=== PATIENT | male | born 1945 | race Caucasian/White ===

== ENCOUNTER → 2017-02-06 | Outpatient (REF) | payer MEDICARE ==
[~2017-02-06] MED LIST: ADV250INH INH; ADVI200C5 PO; ATOR40TA PO; CENTTAB PO; CORE3.12 PO; CORE6.25 PO; COUM1TAB14 PO; ELIQ5TAB PO; FLON0.054; FLON1SPR; FURO40TA2 PO; LASI40TA PO; LISI10TA4 PO; NICO14DI20 TD; SPIR25TA2 PO; TYLE325T5 PO; VITMTA PO; ZEST1TAB4 PO
== END ==
LOC: M LAB REF 12:51
PROVIDERS: ATTEND Nurse Practitioner Family
DX: R21 Rash and other nonspecific skin eruption (principal)

== ENCOUNTER 2018-05-31 13:53 | Inpatient (IN) | payer MEDICARE ==
[2018-05-31 14:34] LABS: BASO % 0.1 % (0.0-1.0); HEMATOCRIT 42.5 % (42.0-52.0); HEMOGLOBIN 14.4 g/dl (13.5-17.5); IMMATURE GRANULOCYTE % 0.7 % (0-3.0); LYMPH # 0.4 10^3/uL (1.5-4.5); LYMPH % 2.3 % (24.0-44.0); MEAN CORPUSCULAR HEMOGLOBIN 34.3 pg (27.0-33.0); MEAN CORPUSCULAR HGB CONC 33.9 g/dl (32.0-36.5); MEAN CORPUSCULAR VOLUME 101.2 fl (80.0-96.0); MONO # 1.2 10^3/uL (0.0-0.8); MONO % 6.3 % (0.0-5.0); NEUTROPHILS # 17.1 10^3/uL (1.8-7.7); NEUTROPHILS % 90.6 % (36.0-66.0); PLATELET COUNT, AUTOMATED 127 10^3/uL (150-450); RED CELL DISTRIBUTION WIDTH 12.9 % (11.5-14.5); WHITE BLOOD COUNT 18.9 10^3/uL (4.0-10.0)
[2018-05-31 14:45] LABS: OSMOLALITY SERUM 305 MOSM/KG (280-301)
[2018-05-31 14:57] LABS: AMMONIA 30 uMOL/L (<32)
[2018-05-31 15:05] LABS: ALKALINE PHOSPHATASE 72 U/L (45-117); ALT/SGPT 21 U/L (12-78); AST/SGOT 69 U/L (7-37); BILIRUBIN,DIRECT 0.5 MG/DL (0.0-0.2); BILIRUBIN,TOTAL 2.3 MG/DL (0.2-1.0); BLOOD UREA NITROGEN 23 MG/DL (7-18); CALCIUM LEVEL 8.5 MG/DL (8.8-10.2); CHLORIDE LEVEL 108 MEQ/L (98-107); GLUCOSE, FASTING 129 MG/DL (70-100); POTASSIUM SERUM 4.8 MEQ/L (3.5-5.1); SODIUM LEVEL 143 MEQ/L (136-145); TOTAL PROTEIN 8.1 GM/DL (6.4-8.2); TROPONIN I 0.03 NG/ML (< 0.10)
[2018-05-31] MEDS: NS 500 ML IV ×2 (15:10→16:51)
[2018-05-31 15:11] LABS: CK-MB VALUE MASS 4.9 NG/ML (<3.6); CPK CREATINE PHOSPHOKINASE 3123 U/L (39-308); MB/CK RELATIVE INDEX 0.15 (< OR =4)
[2018-05-31 15:34] LABS: ANION GAP 11 MEQ/L (8-16); CARBON DIOXIDE LEVEL 24 MEQ/L (21-32)
[2018-05-31 15:35] LABS: ALBUMIN 3.9 GM/DL (3.2-5.2); ALBUMIN/GLOBULIN RATIO 0.93 (1.00-1.93)
[2018-05-31] MEDS: cefTRIAXone SOD 2 GM in D5W MINI-BAG PLUS 50 ML IV (16:27)
[2018-05-31] MEDS: NS 1,000 ML IV (16:47)
[2018-05-31] MEDS: LR 1,000 ML IV (18:00)
[2018-05-31] MEDS ORDERED: ONDANSETRON 4MG/2ML VIAL (J2405) IV (18:15)
[2018-05-31 18:36] LABS: AMORPHOUS SEDIMENT RFX SMALL (NEGATIVE); KETONE, URINE AUTO RFX TRACE mg/dL (NEGATIVE); LEUKOCYTE ESTERASE UR AUTO RFX NEGATIVE (NEGATIVE); MUCUS, URINE RFX SMALL (NEGATIVE); NITRITE, URINE AUTO RFX NEGATIVE (NEGATIVE); RBC, URINE AUTO RFX 5 /HPF (0-3); SPECIFIC GRAVITY UR AUTO RFX 1.028 (1.002-1.035); SQUAM EPITHELIAL CELL UR AURFX 0 /HPF (0-6); WBC, URINE AUTO RFX 6 /HPF (0-3)
[2018-05-31 18:41] LABS: MYOGLOBIN SCREEN, URINE POSITIVE (NEGATIVE)
[2018-05-31 18:49] LABS: MYOGLOBIN 6356 NG/ML (16-116)
[2018-05-31 18:57] LABS: OSMOLALITY URINE 878 MOSM/KG (500-800)
[2018-05-31 19:20] LABS: CHLORIDE,RANDOM URINE 122 MEQ/L; POTASSIUM RANDOM URINE 133.5 MEQ/L; SODIUM,RANDOM URINE 86 MEQ/L
[2018-05-31 19:29] LABS: TOTAL PROTEIN,RANDOM URINE 507.1 MG/DL (0.0-12.0)
[2018-05-31] MEDS: DOCUSATE SODIUM 100 MG CAP PO (21:00)
[2018-05-31 21:01] LABS: TROPONIN I 0.07 NG/ML (< 0.10)
[2018-05-31 21:12] LABS: CK-MB VALUE MASS 11.6 NG/ML (<3.6); CPK CREATINE PHOSPHOKINASE 6138 U/L (39-308); MB/CK RELATIVE INDEX 0.18 (< OR =4)
[2018-05-31] MEDS ORDERED: CEFEPIME HCL 1 GM in D5W MINI-BAG PLUS 50 ML IV (23:00)
[2018-05-31] MEDS: VANCOMYCIN HCL 1,000 MG, VIAL MATE ADAPTER 1 EACH in D5W 250 ML IV (23:30)
[2018-05-31] MEDS: ATORVASTATIN 20 MG TAB PO (23:35)
[2018-05-31] MEDS: APIXABAN 5 MG TAB (ELIQUIS) PO (23:35)
[2018-06-01] MEDS: LR 1,000 ML IV ×3 (00:49→21:13)
[2018-06-01] MEDS: VANCOMYCIN HCL 1,000 MG, VIAL MATE ADAPTER 1 EACH in D5W 250 ML IV ×3 (00:50→21:12)
[2018-06-01] MEDS: CEFEPIME HCL 1 GM in D5W MINI-BAG PLUS 50 ML IV ×2 (04:37→17:36)
[2018-06-01 05:23] LABS: HEMATOCRIT 38.1 % (42.0-52.0); HEMOGLOBIN 12.8 g/dl (13.5-17.5); MEAN CORPUSCULAR HEMOGLOBIN 34.2 pg (27.0-33.0); MEAN CORPUSCULAR HGB CONC 33.6 g/dl (32.0-36.5); MEAN CORPUSCULAR VOLUME 101.9 fl (80.0-96.0); PLATELET COUNT, AUTOMATED 115 10^3/uL (150-450); RED BLOOD COUNT 3.74 10^6/uL (4.30-6.10); RED CELL DISTRIBUTION WIDTH 12.9 % (11.5-14.5)
[2018-06-01 05:44] LABS: ALBUMIN 3.3 GM/DL (3.2-5.2); ALBUMIN/GLOBULIN RATIO 0.83 (1.00-1.93); ALKALINE PHOSPHATASE 56 U/L (45-117); ALT/SGPT 29 U/L (12-78); ANION GAP 9 MEQ/L (8-16); AST/SGOT 159 U/L (7-37); BILIRUBIN,TOTAL 1.8 MG/DL (0.2-1.0); BLOOD UREA NITROGEN 18 MG/DL (7-18); CALCIUM LEVEL 8.1 MG/DL (8.8-10.2); CARBON DIOXIDE LEVEL 25 MEQ/L (21-32); CHLORIDE LEVEL 106 MEQ/L (98-107); CREATININE FOR GFR 1.04 MG/DL (0.70-1.30); GLOMERULAR FILTRATION RATE > 60.0 (>42); GLUCOSE, FASTING 129 MG/DL (70-100); MAGNESIUM LEVEL 2.3 MG/DL (1.8-2.4); POTASSIUM SERUM 4.4 MEQ/L (3.5-5.1); SODIUM LEVEL 140 MEQ/L (136-145); TOTAL PROTEIN 7.3 GM/DL (6.4-8.2); TROPONIN I 0.09 NG/ML (< 0.10)
[2018-06-01 05:54] LABS: CPK CREATINE PHOSPHOKINASE 5630 U/L (39-308); MB/CK RELATIVE INDEX 0.15 (< OR =4)
[2018-06-01] MEDS: LEVOTHYROXINE 50MCG TABLET (0.05MG) PO (06:33)
[2018-06-01] MEDS: BISOPROLOL FUM 2.5 MG PER 1/2TAB PO (08:26)
[2018-06-01] MEDS: APIXABAN 5 MG TAB (ELIQUIS) PO ×2 (08:26→21:18)
[2018-06-01] MEDS: MULTIVITAMINS/MINERALS THERAP 1 TAB PO (08:27)
[2018-06-01] MEDS: DOCUSATE SODIUM 100 MG CAP PO ×2 (08:27→21:19)
[2018-06-01] MEDS: PERCOCET 5MG/325MG TAB PO (18:26)
[2018-06-01] MEDS: ATORVASTATIN 20 MG TAB PO (21:18)
[2018-06-02] MEDS: CEFEPIME HCL 1 GM in D5W MINI-BAG PLUS 50 ML IV ×2 (03:47→17:04)
[2018-06-02] MEDS: LEVOTHYROXINE 50MCG TABLET (0.05MG) PO (05:53)
[2018-06-02 07:10] LABS: HEMATOCRIT 35.8 % (42.0-52.0); MEAN CORPUSCULAR HEMOGLOBIN 34.1 pg (27.0-33.0); MEAN CORPUSCULAR HGB CONC 33.5 g/dl (32.0-36.5); MEAN CORPUSCULAR VOLUME 101.7 fl (80.0-96.0); PLATELET COUNT, AUTOMATED 104 10^3/uL (150-450); RED BLOOD COUNT 3.52 10^6/uL (4.30-6.10); RED CELL DISTRIBUTION WIDTH 12.7 % (11.5-14.5); WHITE BLOOD COUNT 12.1 10^3/uL (4.0-10.0)
[2018-06-02 07:29] LABS: VANCOMYCIN LEVEL TROUGH 12.8 UG/ML (10.0-20.0)
[2018-06-02 07:31] LABS: ALBUMIN 2.8 GM/DL (3.2-5.2); ALBUMIN/GLOBULIN RATIO 0.72 (1.00-1.93); ALKALINE PHOSPHATASE 56 U/L (45-117); ALT/SGPT 51 U/L (12-78); ANION GAP 6 MEQ/L (8-16); AST/SGOT 165 U/L (7-37); BILIRUBIN,TOTAL 1.4 MG/DL (0.2-1.0); BLOOD UREA NITROGEN 13 MG/DL (7-18); CARBON DIOXIDE LEVEL 26 MEQ/L (21-32); CHLORIDE LEVEL 107 MEQ/L (98-107); CREATININE FOR GFR 0.85 MG/DL (0.70-1.30); GLOMERULAR FILTRATION RATE > 60.0 (>42); GLUCOSE, FASTING 113 MG/DL (70-100); MAGNESIUM LEVEL 2.1 MG/DL (1.8-2.4); SODIUM LEVEL 139 MEQ/L (136-145); TOTAL PROTEIN 6.7 GM/DL (6.4-8.2)
[2018-06-02 08:21] LABS: CPK CREATINE PHOSPHOKINASE 3664 U/L (39-308)
[2018-06-02] MEDS ORDERED: MOM 30ML SUSPENSION UDC PO (09:00)
[2018-06-02] MEDS ORDERED: BREO ELLIPTA 200/25 (PATIENT'S OWN MED) INH (09:00)
[2018-06-02] MEDS: MIRALAX *UNIT DOSE* 17GM PACKET PO ×2 (10:02→20:55)
[2018-06-02] MEDS: PERCOCET 5MG/325MG TAB PO (10:03)
[2018-06-02] MEDS: APIXABAN 5 MG TAB (ELIQUIS) PO ×2 (10:03→20:56)
[2018-06-02] MEDS: MULTIVITAMINS/MINERALS THERAP 1 TAB PO (10:03)
[2018-06-02] MEDS: VANCOMYCIN HCL 1,000 MG, VIAL MATE ADAPTER 1 EACH in D5W 250 ML IV ×2 (10:03→19:38)
[2018-06-02] MEDS: BISOPROLOL FUM 2.5 MG PER 1/2TAB PO (10:03)
[2018-06-02] MEDS: DOCUSATE SODIUM 100 MG CAP PO ×2 (10:03→20:56)
[2018-06-02] MEDS: LR 1,000 ML IV ×2 (10:04→22:44)
[2018-06-02] MEDS: MORPHINE 4 MG/ML 1ML VIAL/SYRINGE (J2270) IV (10:43)
[2018-06-02] MEDS: ATORVASTATIN 20 MG TAB PO (20:56)
[2018-06-03 03:16] LABS: HEMATOCRIT 34.6 % (42.0-52.0); HEMOGLOBIN 11.7 g/dl (13.5-17.5); MEAN CORPUSCULAR HEMOGLOBIN 35.1 pg (27.0-33.0); MEAN CORPUSCULAR HGB CONC 33.8 g/dl (32.0-36.5); MEAN CORPUSCULAR VOLUME 103.9 fl (80.0-96.0); PLATELET COUNT, AUTOMATED 111 10^3/uL (150-450); RED BLOOD COUNT 3.33 10^6/uL (4.30-6.10); RED CELL DISTRIBUTION WIDTH 12.6 % (11.5-14.5); WHITE BLOOD COUNT 9.2 10^3/uL (4.0-10.0)
[2018-06-03 03:51] LABS: ALBUMIN 2.7 GM/DL (3.2-5.2); ALBUMIN/GLOBULIN RATIO 0.77 (1.00-1.93); ALKALINE PHOSPHATASE 58 U/L (45-117); ALT/SGPT 98 U/L (12-78); ANION GAP 5 MEQ/L (8-16); AST/SGOT 162 U/L (7-37); BLOOD UREA NITROGEN 13 MG/DL (7-18); CARBON DIOXIDE LEVEL 27 MEQ/L (21-32); CHLORIDE LEVEL 107 MEQ/L (98-107); CPK CREATINE PHOSPHOKINASE 2052 U/L (39-308); CREATININE FOR GFR 0.82 MG/DL (0.70-1.30); GLOMERULAR FILTRATION RATE > 60.0 (>42); GLUCOSE, FASTING 103 MG/DL (70-100); MAGNESIUM LEVEL 2.2 MG/DL (1.8-2.4); POTASSIUM SERUM 4.2 MEQ/L (3.5-5.1); SODIUM LEVEL 139 MEQ/L (136-145); TOTAL PROTEIN 6.2 GM/DL (6.4-8.2)
[2018-06-03] MEDS: CEFEPIME HCL 1 GM in D5W MINI-BAG PLUS 50 ML IV (04:16)
[2018-06-03] MEDS: LEVOTHYROXINE 50MCG TABLET (0.05MG) PO (06:37)
[2018-06-03] MEDS: LR 1,000 ML IV (08:47)
[2018-06-03] MEDS: VANCOMYCIN HCL 1,000 MG, VIAL MATE ADAPTER 1 EACH in D5W 250 ML IV (08:48)
[2018-06-03] MEDS: DOCUSATE SODIUM 100 MG CAP PO ×2 (08:49→20:32)
[2018-06-03] MEDS: MULTIVITAMINS/MINERALS THERAP 1 TAB PO (08:49)
[2018-06-03] MEDS: APIXABAN 5 MG TAB (ELIQUIS) PO ×2 (08:49→20:32)
[2018-06-03] MEDS: BISOPROLOL FUM 2.5 MG PER 1/2TAB PO (08:49)
[2018-06-03] MEDS: MIRALAX *UNIT DOSE* 17GM PACKET PO ×2 (08:49→20:32)
[2018-06-03] MEDS: SYMBICORT 160/4.5MCG INHALER 6GM INH ×2 (13:26→21:12)
[2018-06-03] MEDS: LevoFLOXacin 500 MG TABLET PO (17:27)
[2018-06-03] MEDS: ATORVASTATIN 20 MG TAB PO (20:32)
[2018-06-04] MEDS ORDERED: SLF 3 ML SYR IV (03:45)
[2018-06-04] MEDS: SLF 3 ML SYR IV ×3 (05:19→20:20)
[2018-06-04] MEDS: LEVOTHYROXINE 50MCG TABLET (0.05MG) PO (05:20)
[2018-06-04 06:05] LABS: HEMOGLOBIN 12.3 g/dl (13.5-17.5); MEAN CORPUSCULAR HEMOGLOBIN 34.4 pg (27.0-33.0); MEAN CORPUSCULAR HGB CONC 34.2 g/dl (32.0-36.5); MEAN CORPUSCULAR VOLUME 100.6 fl (80.0-96.0); PLATELET COUNT, AUTOMATED 157 10^3/uL (150-450); RED BLOOD COUNT 3.58 10^6/uL (4.30-6.10); RED CELL DISTRIBUTION WIDTH 12.3 % (11.5-14.5); WHITE BLOOD COUNT 8.7 10^3/uL (4.0-10.0)
[2018-06-04 06:18] LABS: ALBUMIN 2.6 GM/DL (3.2-5.2); ALBUMIN/GLOBULIN RATIO 0.62 (1.00-1.93); ALKALINE PHOSPHATASE 69 U/L (45-117); ALT/SGPT 128 U/L (12-78); ANION GAP 4 MEQ/L (8-16); AST/SGOT 131 U/L (7-37); BILIRUBIN,TOTAL 1.2 MG/DL (0.2-1.0); BLOOD UREA NITROGEN 12 MG/DL (7-18); CALCIUM LEVEL 8.3 MG/DL (8.8-10.2); CARBON DIOXIDE LEVEL 31 MEQ/L (21-32); CHLORIDE LEVEL 103 MEQ/L (98-107); CPK CREATINE PHOSPHOKINASE 915 U/L (39-308); CREATININE FOR GFR 0.95 MG/DL (0.70-1.30); GLOMERULAR FILTRATION RATE > 60.0 (>42); GLUCOSE, FASTING 106 MG/DL (70-100); MAGNESIUM LEVEL 2.1 MG/DL (1.8-2.4); POTASSIUM SERUM 4.4 MEQ/L (3.5-5.1); SODIUM LEVEL 138 MEQ/L (136-145); TOTAL PROTEIN 6.8 GM/DL (6.4-8.2)
[2018-06-04] MEDS: BISOPROLOL FUM 2.5 MG PER 1/2TAB PO (08:36)
[2018-06-04] MEDS: DOCUSATE SODIUM 100 MG CAP PO ×2 (08:36→20:19)
[2018-06-04] MEDS: APIXABAN 5 MG TAB (ELIQUIS) PO ×2 (08:36→20:18)
[2018-06-04] MEDS: MULTIVITAMINS/MINERALS THERAP 1 TAB PO (08:36)
[2018-06-04] MEDS: MIRALAX *UNIT DOSE* 17GM PACKET PO ×2 (09:00→20:19)
[2018-06-04] MEDS: SYMBICORT 160/4.5MCG INHALER 6GM INH (12:25)
[2018-06-04] MEDS: LevoFLOXacin 500 MG TABLET PO (18:19)
[2018-06-04] MEDS: ATORVASTATIN 20 MG TAB PO (20:19)
[2018-06-05] MEDS: SYMBICORT 160/4.5MCG INHALER 6GM INH ×3 (00:30→20:19)
[2018-06-05] MEDS: SLF 3 ML SYR IV ×3 (06:12→21:24)
[2018-06-05] MEDS: LEVOTHYROXINE 50MCG TABLET (0.05MG) PO (06:12)
[2018-06-05 08:02] LABS: HEMATOCRIT 38.1 % (42.0-52.0); MEAN CORPUSCULAR HEMOGLOBIN 34.3 pg (27.0-33.0); MEAN CORPUSCULAR HGB CONC 34.1 g/dl (32.0-36.5); MEAN CORPUSCULAR VOLUME 100.5 fl (80.0-96.0); PLATELET COUNT, AUTOMATED 176 10^3/uL (150-450); RED BLOOD COUNT 3.79 10^6/uL (4.30-6.10); RED CELL DISTRIBUTION WIDTH 12.4 % (11.5-14.5); WHITE BLOOD COUNT 8.6 10^3/uL (4.0-10.0)
[2018-06-05 08:37] LABS: ALKALINE PHOSPHATASE 73 U/L (45-117); ALT/SGPT 125 U/L (12-78); ANION GAP 10 MEQ/L (8-16); AST/SGOT 103 U/L (7-37); BILIRUBIN,TOTAL 1.3 MG/DL (0.2-1.0); BLOOD UREA NITROGEN 13 MG/DL (7-18); C REACTIVE PROTEIN QUANTITATIV 9.76 MG/DL (0.00-0.30); CALCIUM LEVEL 8.5 MG/DL (8.8-10.2); CARBON DIOXIDE LEVEL 24 MEQ/L (21-32); CHLORIDE LEVEL 105 MEQ/L (98-107); CPK CREATINE PHOSPHOKINASE 570 U/L (39-308); GLOMERULAR FILTRATION RATE > 60.0 (>42); GLUCOSE, FASTING 99 MG/DL (70-100); MAGNESIUM LEVEL 2.3 MG/DL (1.8-2.4); POTASSIUM SERUM 4.4 MEQ/L (3.5-5.1); SODIUM LEVEL 139 MEQ/L (136-145); TOTAL PROTEIN 6.4 GM/DL (6.4-8.2)
[2018-06-05 08:52] LABS: ALBUMIN/GLOBULIN RATIO 1.13 (1.00-1.93)
[2018-06-05] MEDS: MIRALAX *UNIT DOSE* 17GM PACKET PO ×2 (09:00→21:24)
[2018-06-05] MEDS: APIXABAN 5 MG TAB (ELIQUIS) PO ×2 (09:05→21:23)
[2018-06-05] MEDS: MULTIVITAMINS/MINERALS THERAP 1 TAB PO (09:05)
[2018-06-05] MEDS: DOCUSATE SODIUM 100 MG CAP PO ×2 (09:05→21:23)
[2018-06-05] MEDS: BISOPROLOL FUM 2.5 MG PER 1/2TAB PO (09:49)
[2018-06-05] MEDS: LevoFLOXacin 500 MG TABLET PO (18:34)
[2018-06-05] MEDS: ATORVASTATIN 20 MG TAB PO (21:24)
[2018-06-06] MEDS: NYSTATIN 100,000 UNITS/GM TOPICAL PWD 15 GM TOP ×3 (01:48→21:00)
[2018-06-06] MEDS: LEVOTHYROXINE 50MCG TABLET (0.05MG) PO (05:30)
[2018-06-06] MEDS: SLF 3 ML SYR IV ×3 (05:31→21:10)
[2018-06-06] MEDS: BISOPROLOL FUM 2.5 MG PER 1/2TAB PO (08:06)
[2018-06-06] MEDS: MULTIVITAMINS/MINERALS THERAP 1 TAB PO (08:06)
[2018-06-06] MEDS: APIXABAN 5 MG TAB (ELIQUIS) PO ×2 (08:06→21:10)
[2018-06-06] MEDS: DOCUSATE SODIUM 100 MG CAP PO ×2 (08:06→21:10)
[2018-06-06] MEDS: MIRALAX *UNIT DOSE* 17GM PACKET PO ×2 (08:07→21:10)
[2018-06-06] MEDS: SYMBICORT 160/4.5MCG INHALER 6GM INH ×2 (09:05→21:00)
[2018-06-06 09:12] LABS: HEMATOCRIT 37.1 % (42.0-52.0); HEMOGLOBIN 12.3 g/dl (13.5-17.5); MEAN CORPUSCULAR HEMOGLOBIN 33.4 pg (27.0-33.0); MEAN CORPUSCULAR HGB CONC 33.2 g/dl (32.0-36.5); MEAN CORPUSCULAR VOLUME 100.8 fl (80.0-96.0); PLATELET COUNT, AUTOMATED 191 10^3/uL (150-450); RED BLOOD COUNT 3.68 10^6/uL (4.30-6.10); RED CELL DISTRIBUTION WIDTH 12.4 % (11.5-14.5); WHITE BLOOD COUNT 9.6 10^3/uL (4.0-10.0)
[2018-06-06 10:21] LABS: ALBUMIN 2.8 GM/DL (3.2-5.2); ALBUMIN/GLOBULIN RATIO 0.82 (1.00-1.93); ALKALINE PHOSPHATASE 76 U/L (45-117); ALT/SGPT 119 U/L (12-78); ANION GAP 6 MEQ/L (8-16); AST/SGOT 87 U/L (7-37); BILIRUBIN,TOTAL 1.4 MG/DL (0.2-1.0); BLOOD UREA NITROGEN 14 MG/DL (7-18); C REACTIVE PROTEIN QUANTITATIV 8.07 MG/DL (0.00-0.30); CARBON DIOXIDE LEVEL 28 MEQ/L (21-32); CHLORIDE LEVEL 104 MEQ/L (98-107); CPK CREATINE PHOSPHOKINASE 390 U/L (39-308); CREATININE FOR GFR 1.01 MG/DL (0.70-1.30); GLOMERULAR FILTRATION RATE > 60.0 (>42); GLUCOSE, FASTING 118 MG/DL (70-100); MAGNESIUM LEVEL 2.3 MG/DL (1.8-2.4); POTASSIUM SERUM 4.3 MEQ/L (3.5-5.1); SODIUM LEVEL 138 MEQ/L (136-145); TOTAL PROTEIN 6.2 GM/DL (6.4-8.2)
[2018-06-06] MEDS: LevoFLOXacin 500 MG TABLET PO (17:18)
[2018-06-06] MEDS: ATORVASTATIN 20 MG TAB PO (21:10)
[2018-06-07] MEDS: LEVOTHYROXINE 50MCG TABLET (0.05MG) PO (06:07)
[2018-06-07] MEDS: SLF 3 ML SYR IV ×3 (06:07→20:13)
[2018-06-07] MEDS: SYMBICORT 160/4.5MCG INHALER 6GM INH ×2 (07:54→19:54)
[2018-06-07 07:56] LABS: HEMATOCRIT 37.9 % (42.0-52.0); HEMOGLOBIN 12.5 g/dl (13.5-17.5); MEAN CORPUSCULAR HEMOGLOBIN 34.2 pg (27.0-33.0); MEAN CORPUSCULAR VOLUME 103.8 fl (80.0-96.0); PLATELET COUNT, AUTOMATED 197 10^3/uL (150-450); RED BLOOD COUNT 3.65 10^6/uL (4.30-6.10); RED CELL DISTRIBUTION WIDTH 12.6 % (11.5-14.5)
[2018-06-07 08:22] LABS: ALBUMIN/GLOBULIN RATIO 0.83 (1.00-1.93); ALKALINE PHOSPHATASE 77 U/L (45-117); ALT/SGPT 121 U/L (12-78); ANION GAP 7 MEQ/L (8-16); AST/SGOT 79 U/L (7-37); BILIRUBIN,TOTAL 1.3 MG/DL (0.2-1.0); BLOOD UREA NITROGEN 13 MG/DL (7-18); C REACTIVE PROTEIN QUANTITATIV 8.13 MG/DL (0.00-0.30); CALCIUM LEVEL 8.4 MG/DL (8.8-10.2); CARBON DIOXIDE LEVEL 28 MEQ/L (21-32); CHLORIDE LEVEL 105 MEQ/L (98-107); CPK CREATINE PHOSPHOKINASE 308 U/L (39-308); GLOMERULAR FILTRATION RATE > 60.0 (>42); GLUCOSE, FASTING 91 MG/DL (70-100); MAGNESIUM LEVEL 2.4 MG/DL (1.8-2.4); POTASSIUM SERUM 4.2 MEQ/L (3.5-5.1); SODIUM LEVEL 140 MEQ/L (136-145); TOTAL PROTEIN 6.6 GM/DL (6.4-8.2)
[2018-06-07] MEDS: NYSTATIN 100,000 UNITS/GM TOPICAL PWD 15 GM TOP ×2 (09:54→20:12)
[2018-06-07] MEDS: APIXABAN 5 MG TAB (ELIQUIS) PO ×2 (09:54→20:10)
[2018-06-07] MEDS: MIRALAX *UNIT DOSE* 17GM PACKET PO ×2 (09:54→20:12)
[2018-06-07] MEDS: MULTIVITAMINS/MINERALS THERAP 1 TAB PO (09:54)
[2018-06-07] MEDS: BISOPROLOL FUM 2.5 MG PER 1/2TAB PO (09:54)
[2018-06-07] MEDS: DOCUSATE SODIUM 100 MG CAP PO ×2 (09:54→20:10)
[2018-06-07] MEDS: PERCOCET 5MG/325MG TAB PO ×2 (13:17→20:11)
[2018-06-07] MEDS: LevoFLOXacin 500 MG TABLET PO (18:33)
[2018-06-07] MEDS: ATORVASTATIN 20 MG TAB PO (20:11)
[2018-06-08] MEDS: LEVOTHYROXINE 50MCG TABLET (0.05MG) PO (05:41)
[2018-06-08] MEDS: SLF 3 ML SYR IV ×3 (05:41→20:16)
[2018-06-08] MEDS: SYMBICORT 160/4.5MCG INHALER 6GM INH ×2 (07:42→19:39)
[2018-06-08 08:03] LABS: C REACTIVE PROTEIN QUANTITATIV 6.03 MG/DL (0.00-0.30); CPK CREATINE PHOSPHOKINASE 192 U/L (39-308)
[2018-06-08] MEDS: NYSTATIN 100,000 UNITS/GM TOPICAL PWD 15 GM TOP ×2 (09:00→20:16)
[2018-06-08] MEDS: MIRALAX *UNIT DOSE* 17GM PACKET PO ×2 (09:00→20:15)
[2018-06-08 09:07] LABS: ALBUMIN 2.7 GM/DL (3.2-5.2); ALBUMIN/GLOBULIN RATIO 0.79 (1.00-1.93); ALKALINE PHOSPHATASE 69 U/L (45-117); ALT/SGPT 120 U/L (12-78); ANION GAP 9 MEQ/L (8-16); AST/SGOT 71 U/L (7-37); BILIRUBIN,TOTAL 0.9 MG/DL (0.2-1.0); BLOOD UREA NITROGEN 13 MG/DL (7-18); CALCIUM LEVEL 8.1 MG/DL (8.8-10.2); CARBON DIOXIDE LEVEL 26 MEQ/L (21-32); CHLORIDE LEVEL 105 MEQ/L (98-107); CREATININE FOR GFR 0.99 MG/DL (0.70-1.30); GLOMERULAR FILTRATION RATE > 60.0 (>42); GLUCOSE, FASTING 97 MG/DL (70-100); MAGNESIUM LEVEL 2.3 MG/DL (1.8-2.4); POTASSIUM SERUM 4.4 MEQ/L (3.5-5.1); SODIUM LEVEL 140 MEQ/L (136-145); TOTAL PROTEIN 6.1 GM/DL (6.4-8.2)
[2018-06-08] MEDS: DOCUSATE SODIUM 100 MG CAP PO ×2 (09:11→20:15)
[2018-06-08] MEDS: BISOPROLOL FUM 2.5 MG PER 1/2TAB PO (09:11)
[2018-06-08] MEDS: MULTIVITAMINS/MINERALS THERAP 1 TAB PO (09:11)
[2018-06-08] MEDS: APIXABAN 5 MG TAB (ELIQUIS) PO ×2 (09:11→20:15)
[2018-06-08 09:47] LABS: BASO % 0.5 % (0.0-1.0); EOS # 0.1 10^3/uL (0.0-0.50); EOS % 1.6 % (0.0-3.0); IMMATURE GRANULOCYTE % 0.8 % (0-3.0); LYMPH # 0.9 10^3/uL (1.5-4.5); LYMPH % 12.4 % (24.0-44.0); MEAN CORPUSCULAR HEMOGLOBIN 34.1 pg (27.0-33.0); MEAN CORPUSCULAR HGB CONC 33.3 g/dl (32.0-36.5); MEAN CORPUSCULAR VOLUME 102.3 fl (80.0-96.0); MONO % 12.6 % (0.0-5.0); NEUTROPHILS # 5.4 10^3/uL (1.8-7.7); NEUTROPHILS % 72.1 % (36.0-66.0); PLATELET COUNT, AUTOMATED 205 10^3/uL (150-450); RED BLOOD COUNT 3.52 10^6/uL (4.30-6.10); RED CELL DISTRIBUTION WIDTH 12.5 % (11.5-14.5); WHITE BLOOD COUNT 7.5 10^3/uL (4.0-10.0)
[2018-06-08] MEDS: LevoFLOXacin 500 MG TABLET PO (17:11)
[2018-06-08] MEDS: PERCOCET 5MG/325MG TAB PO (17:11)
[2018-06-08] MEDS: ATORVASTATIN 20 MG TAB PO (20:15)
[2018-06-09] MEDS: LEVOTHYROXINE 50MCG TABLET (0.05MG) PO (05:32)
[2018-06-09] MEDS: SLF 3 ML SYR IV (05:33)
[2018-06-09 07:10] LABS: BASO % 0.5 % (0.0-1.0); EOS # 0.2 10^3/uL (0.0-0.50); HEMATOCRIT 37.3 % (42.0-52.0); HEMOGLOBIN 12.3 g/dl (13.5-17.5); IMMATURE GRANULOCYTE % 0.9 % (0-3.0); LYMPH # 1.3 10^3/uL (1.5-4.5); LYMPH % 16.8 % (24.0-44.0); MEAN CORPUSCULAR HEMOGLOBIN 34.2 pg (27.0-33.0); MEAN CORPUSCULAR VOLUME 103.6 fl (80.0-96.0); MONO # 0.9 10^3/uL (0.0-0.8); NEUTROPHILS # 5.1 10^3/uL (1.8-7.7); NEUTROPHILS % 67.8 % (36.0-66.0); PLATELET COUNT, AUTOMATED 211 10^3/uL (150-450); RED CELL DISTRIBUTION WIDTH 12.5 % (11.5-14.5); WHITE BLOOD COUNT 7.5 10^3/uL (4.0-10.0)
[2018-06-09] MEDS: SYMBICORT 160/4.5MCG INHALER 6GM INH ×2 (07:13→20:15)
[2018-06-09 07:40] LABS: ALBUMIN 2.8 GM/DL (3.2-5.2); ALBUMIN/GLOBULIN RATIO 0.68 (1.00-1.93); ALKALINE PHOSPHATASE 68 U/L (45-117); ALT/SGPT 103 U/L (12-78); ANION GAP 6 MEQ/L (8-16); AST/SGOT 55 U/L (7-37); BILIRUBIN,TOTAL 0.7 MG/DL (0.2-1.0); BLOOD UREA NITROGEN 11 MG/DL (7-18); C REACTIVE PROTEIN QUANTITATIV 4.19 MG/DL (0.00-0.30); CALCIUM LEVEL 8.3 MG/DL (8.8-10.2); CARBON DIOXIDE LEVEL 27 MEQ/L (21-32); CHLORIDE LEVEL 106 MEQ/L (98-107); CPK CREATINE PHOSPHOKINASE 151 U/L (39-308); CREATININE FOR GFR 0.99 MG/DL (0.70-1.30); GLOMERULAR FILTRATION RATE > 60.0 (>42); GLUCOSE, FASTING 100 MG/DL (70-100); MAGNESIUM LEVEL 2.3 MG/DL (1.8-2.4); POTASSIUM SERUM 4.4 MEQ/L (3.5-5.1); SODIUM LEVEL 139 MEQ/L (136-145); TOTAL PROTEIN 6.9 GM/DL (6.4-8.2)
[2018-06-09] MEDS: NYSTATIN 100,000 UNITS/GM TOPICAL PWD 15 GM TOP ×2 (09:00→21:17)
[2018-06-09] MEDS: DOCUSATE SODIUM 100 MG CAP PO ×2 (09:01→21:00)
[2018-06-09] MEDS: APIXABAN 5 MG TAB (ELIQUIS) PO ×2 (09:01→21:16)
[2018-06-09] MEDS: MULTIVITAMINS/MINERALS THERAP 1 TAB PO (09:01)
[2018-06-09] MEDS: MIRALAX *UNIT DOSE* 17GM PACKET PO ×2 (09:01→21:00)
[2018-06-09] MEDS: BISOPROLOL FUM 2.5 MG PER 1/2TAB PO (09:02)
[2018-06-09] MEDS: LevoFLOXacin 500 MG TABLET PO (18:23)
[2018-06-09] MEDS: ATORVASTATIN 20 MG TAB PO (21:16)
[2018-06-09] MEDS: PERCOCET 5MG/325MG TAB PO (21:17)
[2018-06-10] MEDS: LEVOTHYROXINE 50MCG TABLET (0.05MG) PO (05:45)
[2018-06-10 07:23] LABS: BASO % 0.3 % (0.0-1.0); EOS # 0.1 10^3/uL (0.0-0.50); EOS % 1.8 % (0.0-3.0); HEMATOCRIT 36.8 % (42.0-52.0); HEMOGLOBIN 12.3 g/dl (13.5-17.5); IMMATURE GRANULOCYTE % 0.8 % (0-3.0); LYMPH # 1.2 10^3/uL (1.5-4.5); LYMPH % 18.8 % (24.0-44.0); MEAN CORPUSCULAR HEMOGLOBIN 34.4 pg (27.0-33.0); MEAN CORPUSCULAR HGB CONC 33.4 g/dl (32.0-36.5); MEAN CORPUSCULAR VOLUME 102.8 fl (80.0-96.0); MONO # 0.9 10^3/uL (0.0-0.8); MONO % 13.8 % (0.0-5.0); NEUTROPHILS # 4.2 10^3/uL (1.8-7.7); NEUTROPHILS % 64.5 % (36.0-66.0); PLATELET COUNT, AUTOMATED 225 10^3/uL (150-450); RED BLOOD COUNT 3.58 10^6/uL (4.30-6.10); RED CELL DISTRIBUTION WIDTH 12.6 % (11.5-14.5); WHITE BLOOD COUNT 6.5 10^3/uL (4.0-10.0)
[2018-06-10 07:51] LABS: ALBUMIN/GLOBULIN RATIO 0.88 (1.00-1.93); ALKALINE PHOSPHATASE 74 U/L (45-117); ALT/SGPT 85 U/L (12-78); ANION GAP 8 MEQ/L (8-16); AST/SGOT 41 U/L (7-37); BILIRUBIN,TOTAL 0.7 MG/DL (0.2-1.0); BLOOD UREA NITROGEN 12 MG/DL (7-18); C REACTIVE PROTEIN QUANTITATIV 2.94 MG/DL (0.00-0.30); CALCIUM LEVEL 8.4 MG/DL (8.8-10.2); CARBON DIOXIDE LEVEL 26 MEQ/L (21-32); CHLORIDE LEVEL 106 MEQ/L (98-107); CREATININE FOR GFR 0.91 MG/DL (0.70-1.30); GLOMERULAR FILTRATION RATE > 60.0 (>42); GLUCOSE, FASTING 89 MG/DL (70-100); MAGNESIUM LEVEL 2.4 MG/DL (1.8-2.4); POTASSIUM SERUM 4.3 MEQ/L (3.5-5.1); SODIUM LEVEL 140 MEQ/L (136-145); TOTAL PROTEIN 6.4 GM/DL (6.4-8.2)
[2018-06-10] MEDS: SYMBICORT 160/4.5MCG INHALER 6GM INH ×2 (08:06→19:48)
[2018-06-10] MEDS: DOCUSATE SODIUM 100 MG CAP PO ×2 (09:00→20:07)
[2018-06-10] MEDS: NYSTATIN 100,000 UNITS/GM TOPICAL PWD 15 GM TOP ×2 (09:00→20:08)
[2018-06-10] MEDS: MIRALAX *UNIT DOSE* 17GM PACKET PO ×2 (09:00→20:07)
[2018-06-10] MEDS: MULTIVITAMINS/MINERALS THERAP 1 TAB PO (09:36)
[2018-06-10] MEDS: APIXABAN 5 MG TAB (ELIQUIS) PO ×2 (09:36→20:07)
[2018-06-10] MEDS: BISOPROLOL FUM 2.5 MG PER 1/2TAB PO (09:36)
[2018-06-10] MEDS: PERCOCET 5MG/325MG TAB PO ×2 (16:46→22:59)
[2018-06-10] MEDS: ATORVASTATIN 20 MG TAB PO (20:07)
[2018-06-11] MEDS: PERCOCET 5MG/325MG TAB PO ×2 (05:31→20:47)
[2018-06-11] MEDS: LEVOTHYROXINE 50MCG TABLET (0.05MG) PO (05:31)
[2018-06-11 07:12] LABS: BASO % 0.4 % (0.0-1.0); EOS # 0.1 10^3/uL (0.0-0.50); EOS % 1.2 % (0.0-3.0); HEMATOCRIT 36.5 % (42.0-52.0); HEMOGLOBIN 12.2 g/dl (13.5-17.5); IMMATURE GRANULOCYTE % 0.5 % (0-3.0); LYMPH # 1.4 10^3/uL (1.5-4.5); LYMPH % 19.7 % (24.0-44.0); MEAN CORPUSCULAR HEMOGLOBIN 34.3 pg (27.0-33.0); MEAN CORPUSCULAR HGB CONC 33.4 g/dl (32.0-36.5); MEAN CORPUSCULAR VOLUME 102.5 fl (80.0-96.0); MONO # 0.9 10^3/uL (0.0-0.8); MONO % 12.7 % (0.0-5.0); NEUTROPHILS # 4.8 10^3/uL (1.8-7.7); NEUTROPHILS % 65.5 % (36.0-66.0); PLATELET COUNT, AUTOMATED 228 10^3/uL (150-450); RED BLOOD COUNT 3.56 10^6/uL (4.30-6.10); RED CELL DISTRIBUTION WIDTH 12.7 % (11.5-14.5); WHITE BLOOD COUNT 7.3 10^3/uL (4.0-10.0)
[2018-06-11 07:26] LABS: ALBUMIN 2.9 GM/DL (3.2-5.2); ALBUMIN/GLOBULIN RATIO 0.83 (1.00-1.93); ALKALINE PHOSPHATASE 75 U/L (45-117); ALT/SGPT 77 U/L (12-78); ANION GAP 9 MEQ/L (8-16); AST/SGOT 37 U/L (7-37); BILIRUBIN,TOTAL 0.6 MG/DL (0.2-1.0); BLOOD UREA NITROGEN 11 MG/DL (7-18); C REACTIVE PROTEIN QUANTITATIV 1.91 MG/DL (0.00-0.30); CALCIUM LEVEL 8.3 MG/DL (8.8-10.2); CARBON DIOXIDE LEVEL 27 MEQ/L (21-32); CHLORIDE LEVEL 106 MEQ/L (98-107); CREATININE FOR GFR 0.96 MG/DL (0.70-1.30); GLOMERULAR FILTRATION RATE > 60.0 (>42); GLUCOSE, FASTING 98 MG/DL (70-100); MAGNESIUM LEVEL 2.4 MG/DL (1.8-2.4); POTASSIUM SERUM 4.5 MEQ/L (3.5-5.1); SODIUM LEVEL 142 MEQ/L (136-145); TOTAL PROTEIN 6.4 GM/DL (6.4-8.2)
[2018-06-11] MEDS: SYMBICORT 160/4.5MCG INHALER 6GM INH ×2 (07:43→20:51)
[2018-06-11] MEDS: MIRALAX *UNIT DOSE* 17GM PACKET PO ×2 (10:00→20:46)
[2018-06-11] MEDS: BISOPROLOL FUM 2.5 MG PER 1/2TAB PO (10:00)
[2018-06-11] MEDS: MULTIVITAMINS/MINERALS THERAP 1 TAB PO (10:00)
[2018-06-11] MEDS: NYSTATIN 100,000 UNITS/GM TOPICAL PWD 15 GM TOP ×2 (10:00→20:55)
[2018-06-11] MEDS: APIXABAN 5 MG TAB (ELIQUIS) PO ×2 (10:00→20:46)
[2018-06-11] MEDS: DOCUSATE SODIUM 100 MG CAP PO ×2 (10:04→20:48)
[2018-06-11] MEDS: ATORVASTATIN 20 MG TAB PO (20:46)
[2018-06-12] MEDS: LEVOTHYROXINE 50MCG TABLET (0.05MG) PO (05:41)
[2018-06-12 06:54] LABS: BASO % 0.4 % (0.0-1.0); EOS # 0.1 10^3/uL (0.0-0.50); EOS % 1.3 % (0.0-3.0); HEMATOCRIT 38.6 % (42.0-52.0); HEMOGLOBIN 12.7 g/dl (13.5-17.5); IMMATURE GRANULOCYTE % 0.9 % (0-3.0); LYMPH # 1.5 10^3/uL (1.5-4.5); LYMPH % 21.7 % (24.0-44.0); MEAN CORPUSCULAR HGB CONC 32.9 g/dl (32.0-36.5); MEAN CORPUSCULAR VOLUME 103.5 fl (80.0-96.0); MONO # 0.8 10^3/uL (0.0-0.8); MONO % 11.1 % (0.0-5.0); NEUTROPHILS # 4.4 10^3/uL (1.8-7.7); NEUTROPHILS % 64.6 % (36.0-66.0); PLATELET COUNT, AUTOMATED 238 10^3/uL (150-450); RED BLOOD COUNT 3.73 10^6/uL (4.30-6.10); RED CELL DISTRIBUTION WIDTH 12.8 % (11.5-14.5); WHITE BLOOD COUNT 6.8 10^3/uL (4.0-10.0)
[2018-06-12 07:14] LABS: ALBUMIN 3.1 GM/DL (3.2-5.2); ALBUMIN/GLOBULIN RATIO 0.89 (1.00-1.93); ALKALINE PHOSPHATASE 73 U/L (45-117); ALT/SGPT 68 U/L (12-78); ANION GAP 7 MEQ/L (8-16); AST/SGOT 33 U/L (7-37); BILIRUBIN,TOTAL 0.6 MG/DL (0.2-1.0); BLOOD UREA NITROGEN 13 MG/DL (7-18); C REACTIVE PROTEIN QUANTITATIV 1.67 MG/DL (0.00-0.30); CALCIUM LEVEL 8.2 MG/DL (8.8-10.2); CARBON DIOXIDE LEVEL 28 MEQ/L (21-32); CHLORIDE LEVEL 107 MEQ/L (98-107); CREATININE FOR GFR 0.93 MG/DL (0.70-1.30); GLOMERULAR FILTRATION RATE > 60.0 (>42); GLUCOSE, FASTING 95 MG/DL (70-100); MAGNESIUM LEVEL 2.5 MG/DL (1.8-2.4); POTASSIUM SERUM 4.8 MEQ/L (3.5-5.1); SODIUM LEVEL 142 MEQ/L (136-145); TOTAL PROTEIN 6.6 GM/DL (6.4-8.2)
[2018-06-12] MEDS: SYMBICORT 160/4.5MCG INHALER 6GM INH ×2 (08:17→21:31)
[2018-06-12] MEDS: MIRALAX *UNIT DOSE* 17GM PACKET PO ×2 (09:36→20:48)
[2018-06-12] MEDS: BISOPROLOL FUM 2.5 MG PER 1/2TAB PO (09:36)
[2018-06-12] MEDS: APIXABAN 5 MG TAB (ELIQUIS) PO ×2 (09:36→20:48)
[2018-06-12] MEDS: DOCUSATE SODIUM 100 MG CAP PO ×2 (09:36→20:48)
[2018-06-12] MEDS: MULTIVITAMINS/MINERALS THERAP 1 TAB PO (09:36)
[2018-06-12] MEDS: NYSTATIN 100,000 UNITS/GM TOPICAL PWD 15 GM TOP ×2 (09:37→20:49)
[2018-06-12] MEDS: PERCOCET 5MG/325MG TAB PO (09:37)
[2018-06-12] MEDS: SPIRONOLACTONE 12.5MG PER 1/2 TABLET PO (15:42)
[2018-06-12] MEDS: ATORVASTATIN 20 MG TAB PO (20:48)
[2018-06-13] MEDS: LEVOTHYROXINE 50MCG TABLET (0.05MG) PO (06:17)
[2018-06-13 07:11] LABS: BASO % 0.4 % (0.0-1.0); EOS # 0.1 10^3/uL (0.0-0.50); EOS % 1.2 % (0.0-3.0); HEMATOCRIT 38.6 % (42.0-52.0); HEMOGLOBIN 12.6 g/dl (13.5-17.5); IMMATURE GRANULOCYTE % 0.7 % (0-3.0); LYMPH # 1.5 10^3/uL (1.5-4.5); LYMPH % 20.1 % (24.0-44.0); MEAN CORPUSCULAR HEMOGLOBIN 33.6 pg (27.0-33.0); MEAN CORPUSCULAR HGB CONC 32.6 g/dl (32.0-36.5); MEAN CORPUSCULAR VOLUME 102.9 fl (80.0-96.0); MONO # 0.9 10^3/uL (0.0-0.8); MONO % 11.4 % (0.0-5.0); NEUTROPHILS # 5.1 10^3/uL (1.8-7.7); NEUTROPHILS % 66.2 % (36.0-66.0); PLATELET COUNT, AUTOMATED 252 10^3/uL (150-450); RED BLOOD COUNT 3.75 10^6/uL (4.30-6.10); RED CELL DISTRIBUTION WIDTH 12.8 % (11.5-14.5); WHITE BLOOD COUNT 7.6 10^3/uL (4.0-10.0)
[2018-06-13 07:37] LABS: ALBUMIN/GLOBULIN RATIO 0.77 (1.00-1.93); ALKALINE PHOSPHATASE 72 U/L (45-117); ALT/SGPT 56 U/L (12-78); ANION GAP 8 MEQ/L (8-16); AST/SGOT 27 U/L (7-37); BILIRUBIN,TOTAL 0.5 MG/DL (0.2-1.0); BLOOD UREA NITROGEN 13 MG/DL (7-18); C REACTIVE PROTEIN QUANTITATIV 1.23 MG/DL (0.00-0.30); CALCIUM LEVEL 8.3 MG/DL (8.8-10.2); CARBON DIOXIDE LEVEL 26 MEQ/L (21-32); CHLORIDE LEVEL 107 MEQ/L (98-107); CREATININE FOR GFR 0.91 MG/DL (0.70-1.30); GLOMERULAR FILTRATION RATE > 60.0 (>42); GLUCOSE, FASTING 95 MG/DL (70-100); MAGNESIUM LEVEL 2.3 MG/DL (1.8-2.4); POTASSIUM SERUM 4.1 MEQ/L (3.5-5.1); SODIUM LEVEL 141 MEQ/L (136-145); TOTAL PROTEIN 6.9 GM/DL (6.4-8.2)
[2018-06-13] MEDS: MIRALAX *UNIT DOSE* 17GM PACKET PO ×2 (09:35→20:32)
[2018-06-13] MEDS: APIXABAN 5 MG TAB (ELIQUIS) PO ×2 (09:35→20:16)
[2018-06-13] MEDS: MULTIVITAMINS/MINERALS THERAP 1 TAB PO (09:35)
[2018-06-13] MEDS: SPIRONOLACTONE 12.5MG PER 1/2 TABLET PO (09:35)
[2018-06-13] MEDS: DOCUSATE SODIUM 100 MG CAP PO ×2 (09:35→20:32)
[2018-06-13] MEDS: BISOPROLOL FUM 2.5 MG PER 1/2TAB PO (09:35)
[2018-06-13] MEDS: NYSTATIN 100,000 UNITS/GM TOPICAL PWD 15 GM TOP ×2 (09:36→20:17)
[2018-06-13] MEDS: SYMBICORT 160/4.5MCG INHALER 6GM INH ×2 (14:03→20:39)
[2018-06-13] MEDS: PERCOCET 5MG/325MG TAB PO (20:16)
[2018-06-13] MEDS: ATORVASTATIN 20 MG TAB PO (20:16)
[2018-06-14] MEDS: LEVOTHYROXINE 50MCG TABLET (0.05MG) PO (05:09)
[2018-06-14 06:47] LABS: BASO % 0.5 % (0.0-1.0); EOS # 0.1 10^3/uL (0.0-0.50); EOS % 1.4 % (0.0-3.0); HEMOGLOBIN 12.9 g/dl (13.5-17.5); IMMATURE GRANULOCYTE % 0.8 % (0-3.0); LYMPH # 1.5 10^3/uL (1.5-4.5); LYMPH % 23.7 % (24.0-44.0); MEAN CORPUSCULAR HEMOGLOBIN 33.9 pg (27.0-33.0); MEAN CORPUSCULAR HGB CONC 33.1 g/dl (32.0-36.5); MEAN CORPUSCULAR VOLUME 102.4 fl (80.0-96.0); MONO # 0.9 10^3/uL (0.0-0.8); MONO % 13.6 % (0.0-5.0); NEUTROPHILS # 3.8 10^3/uL (1.8-7.7); PLATELET COUNT, AUTOMATED 251 10^3/uL (150-450); RED BLOOD COUNT 3.81 10^6/uL (4.30-6.10); RED CELL DISTRIBUTION WIDTH 13.1 % (11.5-14.5); WHITE BLOOD COUNT 6.3 10^3/uL (4.0-10.0)
[2018-06-14 07:08] LABS: ALBUMIN 3.1 GM/DL (3.2-5.2); ALBUMIN/GLOBULIN RATIO 0.84 (1.00-1.93); ALKALINE PHOSPHATASE 70 U/L (45-117); ALT/SGPT 48 U/L (12-78); ANION GAP 7 MEQ/L (8-16); AST/SGOT 21 U/L (7-37); BILIRUBIN,TOTAL 0.5 MG/DL (0.2-1.0); BLOOD UREA NITROGEN 12 MG/DL (7-18); CALCIUM LEVEL 8.3 MG/DL (8.8-10.2); CARBON DIOXIDE LEVEL 28 MEQ/L (21-32); CHLORIDE LEVEL 107 MEQ/L (98-107); CREATININE FOR GFR 0.98 MG/DL (0.70-1.30); GLOMERULAR FILTRATION RATE > 60.0 (>42); GLUCOSE, FASTING 106 MG/DL (70-100); MAGNESIUM LEVEL 2.3 MG/DL (1.8-2.4); POTASSIUM SERUM 4.4 MEQ/L (3.5-5.1); SODIUM LEVEL 142 MEQ/L (136-145); TOTAL PROTEIN 6.8 GM/DL (6.4-8.2)
[2018-06-14] MEDS: DOCUSATE SODIUM 100 MG CAP PO (07:53)
[2018-06-14] MEDS: MIRALAX *UNIT DOSE* 17GM PACKET PO (07:54)
[2018-06-14] MEDS: NYSTATIN 100,000 UNITS/GM TOPICAL PWD 15 GM TOP (09:00)
[2018-06-14] MEDS: SPIRONOLACTONE 12.5MG PER 1/2 TABLET PO (09:20)
[2018-06-14] MEDS: MULTIVITAMINS/MINERALS THERAP 1 TAB PO (09:21)
[2018-06-14] MEDS: BISOPROLOL FUM 2.5 MG PER 1/2TAB PO (09:21)
[2018-06-14] MEDS: APIXABAN 5 MG TAB (ELIQUIS) PO (09:21)
[2018-06-14] MEDS: PERCOCET 5MG/325MG TAB PO (10:46)
== END 2018-06-14 12:00 | DRG 682 ==
LOC: M PCU 06-02 23:00 → M MS4PR 06-04 20:31 → M MS5PR 06-13 22:35 → M MS4PR 06-04 20:40 → M ED 13:53 → M ED INP 19:45 → M PCU 22:21
DX: N17.9 Acute kidney failure, unspecified (principal); J18.9 Pneumonia, unspecified organism; M62.82 Rhabdomyolysis; I50.32 Chronic diastolic (congestive) heart failure; I11.0 Hypertensive heart disease with heart failure; E78.5 Hyperlipidemia, unspecified; I25.10 Atherosclerotic heart disease of native coronary artery without angina pectoris; I25.2 Old myocardial infarction; I48.91 Unspecified atrial fibrillation; J44.9 Chronic obstructive pulmonary disease, unspecified; E03.9 Hypothyroidism, unspecified; Z79.899 Other long term (current) drug therapy; I35.0 Nonrheumatic aortic (valve) stenosis

== ENCOUNTER → 2018-06-15 | Outpatient (REF) ==
[2018-06-15 07:56] LABS: C REACTIVE PROTEIN QUANTITATIV 0.69 MG/DL (0.00-0.30)
== END ==
LOC: SKLAB7 07:00
DX: R10.32 Left lower quadrant pain (principal)

== ENCOUNTER → 2018-07-17 | Outpatient (REF) | payer MEDICARE | LOC: M LAB REF 15:16 | DX: R19.7 Diarrhea, unspecified (principal) | CPT/HCPCS: 87493 ==

== ENCOUNTER → 2019-02-05 | Outpatient (REF) | payer MEDICARE ==
[~2019-02-05] MED LIST changes: -ATOR40TA PO; +ATOR40TA75 PO; +BISO5TAB5 PO; +BREO1INH3 INH; -LASI40TA PO; +LASI40TA9 PO; +MELA5TAB17 PO; +SPIR-10 PO; -SPIR25TA2 PO; +SYNT50TA PO; +TYLE500T78 PO
== END ==
LOC: M LAB REF 12:09
PROVIDERS: ATTEND Nurse Practitioner Adult Health
DX: R71.8 Other abnormality of red blood cells (principal)

== ENCOUNTER → 2019-10-22 | Outpatient (REF) | payer MEDICARE ==
[~2019-10-22] MED LIST changes: +BISO5TAB14 PO; -BISO5TAB5 PO; -MELA5TAB17 PO; +MELA5TAB31 PO
[2019-10-22 18:26] LABS: APPEARANCE, URINE HAZY (CLEAR); BACTERIA, URINE AUTO NEGATIVE (NEGATIVE); BILIRUBIN, URINE AUTO NEGATIVE (NEGATIVE); BLOOD, URINE BLOOD NEGATIVE (NEGATIVE); COLOR, URINE YELLOW (YELLOW); GLUCOSE, URINE (UA) AUTO NEGATIVE (NEGATIVE); KETONE, URINE AUTO NEGATIVE (NEGATIVE); LEUKOCYTE ESTERASE, URINE AUTO 1+ (NEGATIVE); NITRITE, URINE AUTO NEGATIVE (NEGATIVE); PROTEIN, URINE AUTO NEGATIVE (NEGATIVE); RBC, URINE AUTO 2 /HPF (0-3); SPECIFIC GRAVITY URINE AUTO 1.016 (1.002-1.035); SQUAMOUS EPITHELIAL CELL UR AU 0 /HPF (0-6); UROBILINOGEN, URINE AUTO 0.2 mg/dL (0.0-2.0); WBC, URINE AUTO 20 /HPF (0-3)
== END ==
LOC: M LAB REF 17:37
PROVIDERS: ATTEND Nurse Practitioner Adult Health
DX: R31.9 Hematuria, unspecified (principal); N39.0 Urinary tract infection, site not specified

== ENCOUNTER → 2021-03-10 | Outpatient (REF) | payer MEDICARE ==
[~2021-03-10] MED LIST changes: -COUM1TAB14 PO; +COUM4TAB8 PO; +LISI10TA22 PO; -LISI10TA4 PO; -MELA5TAB31 PO; +MELA5TAB36 PO
== END ==
LOC: M LAB REF 11:35
PROVIDERS: ATTEND Nurse Practitioner Adult Health
DX: R71.8 Other abnormality of red blood cells (principal)

== ENCOUNTER 2021-12-15 15:10 | Inpatient (IN) | payer MEDICARE ==
[~2021-12-15] VITALS: Ht 193 cm; Wt 104.6 kg
[2021-12-15] MEDS ORDERED: ACETAMINOPHEN 325 MG TAB PO ONE (15:30)
[2021-12-15 16:16] LABS: ABG BASE EXCESS 0.1 (-2.0-2.0); ABG HCO3 23.6 MEQ/L (22.0-26.0); ABG PARTIAL PRESSURE CO2 34.7 mmHg (35.0-45.0); ABG PARTIAL PRESSURE O2 70.9 mmHg (75.0-100.0); ABG STANDARD HCO3 24.6 MEQ/L (22.0-26.0); ABG TOTAL CO2 24.7 MEQ/L (23.0-31.0); ABG pH (ARTERIAL) 7.451 UNITS (7.350-7.450)
[2021-12-15 16:21] LABS: HEMOGLOBIN 11.9 g/dl (13.5-17.5); MEAN CORPUSCULAR HEMOGLOBIN 33.8 pg (27.0-33.0); MEAN CORPUSCULAR HGB CONC 33.1 g/dl (32.0-36.5); MEAN CORPUSCULAR VOLUME 102.3 fl (80.0-96.0); RED BLOOD COUNT 3.52 10^6/uL (4.30-6.10); WHITE BLOOD COUNT 13.8 10^3/uL (4.0-10.0)
[2021-12-15] MEDS ORDERED: NS 1,000 ML IV ONE (16:45)
[2021-12-15] MEDS ORDERED: AZITHROMYCIN INJ 500 MG, VIAL MATE ADAPTER 1 EACH in NS 250 ML IV ONE (16:45)
[2021-12-15] MEDS ORDERED: cefTRIAXone SOD 2 GM in D5W MINI-BAG PLUS 50 ML IV ONE (16:45)
[2021-12-15 16:58] LABS: PLATELET COUNT, AUTOMATED 93 10^3/uL (150-450)
[2021-12-15 17:01] LABS: EOSINOPHILS 1 % (0-3); MONOCYTES 6 % (0-5); NEUTROPHILS 93 % (28-66); PLATELET ESTIMATE DECREASED (NORMAL)
[2021-12-15 17:08] LABS: ALBUMIN 3.4 GM/DL (3.2-5.2); ALT/SGPT 15 U/L (12-78); BILIRUBIN,DIRECT 0.3 MG/DL (0.0-0.2); BILIRUBIN,TOTAL 1.7 MG/DL (0.2-1.0); BLOOD UREA NITROGEN 10 MG/DL (7-18); CALCIUM LEVEL 7.9 MG/DL (8.8-10.2); CARBON DIOXIDE LEVEL 25 MEQ/L (21-32); CHLORIDE LEVEL 102 MEQ/L (98-107); CREATININE FOR GFR 1.07 MG/DL (0.70-1.30); GLOMERULAR FILTRATION RATE > 60.0 (>42); GLUCOSE, FASTING 133 MG/DL (70-100); NT-PRO BNP 4693 PG/ML (<450); POTASSIUM SERUM 4.2 MEQ/L (3.5-5.1); SODIUM LEVEL 134 MEQ/L (136-145); THYROXINE (T4) 6.4 UG/DL (4.5-12.0); TOTAL PROTEIN 6.9 GM/DL (6.4-8.2)
[2021-12-15] MEDS ORDERED: NYST1POW9 TOP (19:13)
[2021-12-15] MEDS ORDERED: METO1TAB7 PO (19:13)
[2021-12-15] MEDS ORDERED: KETO2SHA8 TOP (19:13)
[2021-12-15] MEDS ORDERED: MED REC COMMENT (19:15)
[2021-12-15] MEDS ORDERED: HOME MED LIST COMPLETE! XX SCH (19:15)
[2021-12-15] MEDS: IPRATROPIUM 0.5MG/ALBUTEROL 2.5MG INH SOL UD 3ML (DUONEB) NEB SCH (20:00)
[2021-12-15] MEDS ORDERED: ALBUTEROL 90 MCG/ACT 8GM HFA INHALER INH PRN (22:15)
[2021-12-15] MEDS ORDERED: NS 1,000 ML IV SCH (22:50)
[2021-12-16] VITALS (22 sets, daily range): BP systolic 109–148; BP diastolic 61–77; O2SAT 88–97
[2021-12-16] MEDS ORDERED: NS 250 ML IV ONE (03:50)
[2021-12-16] MEDS: LEVOTHYROXINE 50MCG TABLET (0.05MG) PO SCH (05:50)
[2021-12-16 07:27] LABS: HEMATOCRIT 35.6 % (42.0-52.0); HEMOGLOBIN 11.6 g/dl (13.5-17.5); MEAN CORPUSCULAR HEMOGLOBIN 33.6 pg (27.0-33.0); MEAN CORPUSCULAR HGB CONC 32.6 g/dl (32.0-36.5); MEAN CORPUSCULAR VOLUME 103.2 fl (80.0-96.0); RED BLOOD COUNT 3.45 10^6/uL (4.30-6.10); WHITE BLOOD COUNT 9.9 10^3/uL (4.0-10.0)
[2021-12-16] MEDS: IPRATROPIUM 0.5MG/ALBUTEROL 2.5MG INH SOL UD 3ML (DUONEB) NEB SCH ×4 (07:28→20:53)
[2021-12-16 07:31] LABS: PLATELET COUNT, AUTOMATED 85 10^3/uL (150-450)
[2021-12-16 07:37] LABS: BLOOD UREA NITROGEN 11 MG/DL (7-18); CALCIUM LEVEL 8.2 MG/DL (8.8-10.2); CARBON DIOXIDE LEVEL 29 MEQ/L (21-32); CHLORIDE LEVEL 107 MEQ/L (98-107); CREATININE FOR GFR 0.93 MG/DL (0.70-1.30); GLOMERULAR FILTRATION RATE > 60.0 (>42); GLUCOSE, FASTING 134 MG/DL (70-100); MAGNESIUM LEVEL 2.4 MG/DL (1.8-2.4); POTASSIUM SERUM 4.3 MEQ/L (3.5-5.1); SODIUM LEVEL 138 MEQ/L (136-145)
[2021-12-16] MEDS: AZITHROMYCIN 250MG TABLET PO SCH (08:50)
[2021-12-16] MEDS: APIXABAN 5 MG TAB (ELIQUIS) PO SCH ×2 (08:51→21:18)
[2021-12-16] MEDS: NS 1,000 ML IV SCH ×2 (12:36→18:54)
[2021-12-16] MEDS: METOPROLOL SUCC (TopROL XL) 50MG **XL** TAB PO SCH (15:05)
[2021-12-16] MEDS: cefTRIAXone SOD 1 GM in D5W MINI-BAG PLUS 50 ML IV SCH (17:32)
[2021-12-16] MEDS ORDERED: NS 500 ML IV ONE (18:10)
[2021-12-16] MEDS: ATORVASTATIN 20 MG TAB PO SCH (21:18)
[2021-12-17] VITALS (21 sets, daily range): BP systolic 114–143; BP diastolic 58–79; O2SAT 87–100
[2021-12-17] MEDS: LEVOTHYROXINE 50MCG TABLET (0.05MG) PO SCH (05:57)
[2021-12-17] MEDS: NS 1,000 ML IV SCH (06:00)
[2021-12-17 06:24] LABS: HEMATOCRIT 32.9 % (42.0-52.0); HEMOGLOBIN 10.9 g/dl (13.5-17.5); MEAN CORPUSCULAR HGB CONC 33.1 g/dl (32.0-36.5); MEAN CORPUSCULAR VOLUME 102.5 fl (80.0-96.0); RED BLOOD COUNT 3.21 10^6/uL (4.30-6.10); WHITE BLOOD COUNT 8.8 10^3/uL (4.0-10.0)
[2021-12-17 06:26] LABS: PLATELET COUNT, AUTOMATED 97 10^3/uL (150-450)
[2021-12-17 06:45] LABS: BLOOD UREA NITROGEN 10 MG/DL (7-18); CALCIUM LEVEL 8.1 MG/DL (8.8-10.2); CARBON DIOXIDE LEVEL 28 MEQ/L (21-32); CHLORIDE LEVEL 111 MEQ/L (98-107); CREATININE FOR GFR 0.91 MG/DL (0.70-1.30); GLOMERULAR FILTRATION RATE > 60.0 (>42); GLUCOSE, FASTING 112 MG/DL (70-100); POTASSIUM SERUM 3.9 MEQ/L (3.5-5.1); SODIUM LEVEL 143 MEQ/L (136-145)
[2021-12-17] MEDS: IPRATROPIUM 0.5MG/ALBUTEROL 2.5MG INH SOL UD 3ML (DUONEB) NEB SCH ×4 (07:11→19:53)
[2021-12-17] MEDS: guaiFENesin ER 600 MG TAB PO SCH ×2 (09:11→20:16)
[2021-12-17] MEDS: APIXABAN 5 MG TAB (ELIQUIS) PO SCH ×2 (09:13→20:16)
[2021-12-17] MEDS: METOPROLOL SUCC (TopROL XL) 50MG **XL** TAB PO SCH (09:13)
[2021-12-17] MEDS: AZITHROMYCIN 250MG TABLET PO SCH (09:14)
[2021-12-17] MEDS: cefTRIAXone SOD 1 GM in D5W MINI-BAG PLUS 50 ML IV SCH (16:10)
[2021-12-17] MEDS: ATORVASTATIN 20 MG TAB PO SCH (20:16)
[2021-12-18] VITALS (10 sets, daily range): BP systolic 119–146; BP diastolic 69–88; O2SAT 90–92
[2021-12-18] MEDS: LEVOTHYROXINE 50MCG TABLET (0.05MG) PO SCH (05:08)
[2021-12-18 06:21] LABS: HEMATOCRIT 36.3 % (42.0-52.0); HEMOGLOBIN 11.6 g/dl (13.5-17.5); MEAN CORPUSCULAR HEMOGLOBIN 33.2 pg (27.0-33.0); PLATELET COUNT, AUTOMATED 120 10^3/uL (150-450); RED BLOOD COUNT 3.49 10^6/uL (4.30-6.10); WHITE BLOOD COUNT 9.6 10^3/uL (4.0-10.0)
[2021-12-18 06:47] LABS: BLOOD UREA NITROGEN 13 MG/DL (7-18); CALCIUM LEVEL 8.2 MG/DL (8.8-10.2); CARBON DIOXIDE LEVEL 27 MEQ/L (21-32); CHLORIDE LEVEL 107 MEQ/L (98-107); CREATININE FOR GFR 1.01 MG/DL (0.70-1.30); GLOMERULAR FILTRATION RATE > 60.0 (>42); GLUCOSE, FASTING 90 MG/DL (70-100); POTASSIUM SERUM 4.1 MEQ/L (3.5-5.1); SODIUM LEVEL 139 MEQ/L (136-145)
[2021-12-18] MEDS: IPRATROPIUM 0.5MG/ALBUTEROL 2.5MG INH SOL UD 3ML (DUONEB) NEB SCH ×4 (07:06→20:26)
[2021-12-18] MEDS: APIXABAN 5 MG TAB (ELIQUIS) PO SCH ×2 (08:19→20:06)
[2021-12-18] MEDS: AZITHROMYCIN 250MG TABLET PO SCH (08:19)
[2021-12-18] MEDS: guaiFENesin ER 600 MG TAB PO SCH ×2 (08:19→20:06)
[2021-12-18] MEDS: METOPROLOL SUCC (TopROL XL) 50MG **XL** TAB PO SCH (08:24)
[2021-12-18] MEDS: cefTRIAXone SOD 1 GM in D5W MINI-BAG PLUS 50 ML IV SCH (17:41)
[2021-12-18] MEDS: ATORVASTATIN 20 MG TAB PO SCH (20:06)
[2021-12-19 03:12] VITALS: BP 130/65
[2021-12-19] MEDS: LEVOTHYROXINE 50MCG TABLET (0.05MG) PO SCH (05:00)
[2021-12-19 05:32] LABS: HEMATOCRIT 34.4 % (42.0-52.0); HEMOGLOBIN 11.2 g/dl (13.5-17.5); MEAN CORPUSCULAR HEMOGLOBIN 33.4 pg (27.0-33.0); MEAN CORPUSCULAR HGB CONC 32.6 g/dl (32.0-36.5); MEAN CORPUSCULAR VOLUME 102.7 fl (80.0-96.0); PLATELET COUNT, AUTOMATED 125 10^3/uL (150-450); RED BLOOD COUNT 3.35 10^6/uL (4.30-6.10); WHITE BLOOD COUNT 7.3 10^3/uL (4.0-10.0)
[2021-12-19 05:49] LABS: BLOOD UREA NITROGEN 12 MG/DL (7-18); CALCIUM LEVEL 8.2 MG/DL (8.8-10.2); CARBON DIOXIDE LEVEL 30 MEQ/L (21-32); CHLORIDE LEVEL 106 MEQ/L (98-107); CREATININE FOR GFR 0.92 MG/DL (0.70-1.30); GLOMERULAR FILTRATION RATE > 60.0 (>42); GLUCOSE, FASTING 91 MG/DL (70-100); POTASSIUM SERUM 3.9 MEQ/L (3.5-5.1); SODIUM LEVEL 139 MEQ/L (136-145)
[2021-12-19] MEDS: IPRATROPIUM 0.5MG/ALBUTEROL 2.5MG INH SOL UD 3ML (DUONEB) NEB SCH ×3 (07:20→16:00)
[2021-12-19] MEDS: guaiFENesin ER 600 MG TAB PO SCH ×2 (08:02→20:28)
[2021-12-19] MEDS: APIXABAN 5 MG TAB (ELIQUIS) PO SCH ×2 (08:02→20:28)
[2021-12-19] MEDS: AZITHROMYCIN 250MG TABLET PO SCH (08:02)
[2021-12-19] MEDS: METOPROLOL SUCC (TopROL XL) 50MG **XL** TAB PO SCH (08:03)
[2021-12-19 08:04] VITALS: BP 137/82
[2021-12-19] MEDS: predniSONE 20 MG TAB PO SCH (09:31)
[2021-12-19] MEDS: ADVAIR HFA 230/21MCG INHALER INH SCH ×2 (12:41→19:06)
[2021-12-19 16:20] VITALS: BP 136/84
[2021-12-19] MEDS: cefTRIAXone SOD 1 GM in D5W MINI-BAG PLUS 50 ML IV SCH (17:39)
[2021-12-19 19:15] VITALS: BP 136/77
[2021-12-19] MEDS: ATORVASTATIN 20 MG TAB PO SCH (20:28)
[2021-12-20 03:30] VITALS: BP 145/74
[2021-12-20] MEDS: LEVOTHYROXINE 50MCG TABLET (0.05MG) PO SCH (05:09)
[2021-12-20 05:36] LABS: HEMATOCRIT 35.1 % (42.0-52.0); HEMOGLOBIN 11.7 g/dl (13.5-17.5); MEAN CORPUSCULAR HEMOGLOBIN 33.9 pg (27.0-33.0); MEAN CORPUSCULAR HGB CONC 33.3 g/dl (32.0-36.5); MEAN CORPUSCULAR VOLUME 101.7 fl (80.0-96.0); PLATELET COUNT, AUTOMATED 137 10^3/uL (150-450); RED BLOOD COUNT 3.45 10^6/uL (4.30-6.10)
[2021-12-20 05:57] LABS: BLOOD UREA NITROGEN 13 MG/DL (7-18); CALCIUM LEVEL 8.6 MG/DL (8.8-10.2); CARBON DIOXIDE LEVEL 30 MEQ/L (21-32); CHLORIDE LEVEL 107 MEQ/L (98-107); CREATININE FOR GFR 0.88 MG/DL (0.70-1.30); GLOMERULAR FILTRATION RATE > 60.0 (>42); GLUCOSE, FASTING 131 MG/DL (70-100); POTASSIUM SERUM 4.3 MEQ/L (3.5-5.1); SODIUM LEVEL 140 MEQ/L (136-145)
[2021-12-20] MEDS: ADVAIR HFA 230/21MCG INHALER INH SCH ×2 (07:42→18:25)
[2021-12-20 08:11] VITALS: BP 145/72
[2021-12-20] MEDS: APIXABAN 5 MG TAB (ELIQUIS) PO SCH ×2 (09:00→20:34)
[2021-12-20] MEDS: predniSONE 20 MG TAB PO SCH (09:00)
[2021-12-20] MEDS: guaiFENesin ER 600 MG TAB PO SCH ×2 (09:00→20:35)
[2021-12-20] MEDS: METOPROLOL SUCC (TopROL XL) 50MG **XL** TAB PO SCH (09:02)
[2021-12-20 12:00] VITALS: BP 148/80
[2021-12-20] MEDS: cefTRIAXone SOD 1 GM in D5W MINI-BAG PLUS 50 ML IV SCH (18:13)
[2021-12-20 20:25] VITALS: BP 144/75
[2021-12-20] MEDS: ATORVASTATIN 20 MG TAB PO SCH (20:34)
[2021-12-21] MEDS: ADVAIR HFA 230/21MCG INHALER INH SCH ×2 (05:09→20:39)
[2021-12-21 05:13] LABS: HEMOGLOBIN 12.2 g/dl (13.5-17.5); MEAN CORPUSCULAR HEMOGLOBIN 34.3 pg (27.0-33.0); MEAN CORPUSCULAR VOLUME 103.9 fl (80.0-96.0); PLATELET COUNT, AUTOMATED 156 10^3/uL (150-450); RED BLOOD COUNT 3.56 10^6/uL (4.30-6.10); WHITE BLOOD COUNT 7.6 10^3/uL (4.0-10.0)
[2021-12-21] MEDS: LEVOTHYROXINE 50MCG TABLET (0.05MG) PO SCH (05:17)
[2021-12-21 05:19] VITALS: BP 154/82
[2021-12-21 05:32] LABS: BLOOD UREA NITROGEN 15 MG/DL (7-18); CALCIUM LEVEL 8.5 MG/DL (8.8-10.2); CARBON DIOXIDE LEVEL 32 MEQ/L (21-32); CHLORIDE LEVEL 104 MEQ/L (98-107); GLOMERULAR FILTRATION RATE > 60.0 (>42); GLUCOSE, FASTING 119 MG/DL (70-100); POTASSIUM SERUM 3.9 MEQ/L (3.5-5.1); SODIUM LEVEL 143 MEQ/L (136-145)
[2021-12-21] MEDS: predniSONE 20 MG TAB PO SCH (09:46)
[2021-12-21] MEDS: guaiFENesin ER 600 MG TAB PO SCH ×2 (09:47→21:20)
[2021-12-21] MEDS: METOPROLOL SUCC (TopROL XL) 50MG **XL** TAB PO SCH (09:47)
[2021-12-21] MEDS: APIXABAN 5 MG TAB (ELIQUIS) PO SCH ×2 (09:47→21:20)
[2021-12-21 14:00] VITALS: BP 149/82
[2021-12-21] MEDS: cefTRIAXone SOD 1 GM in D5W MINI-BAG PLUS 50 ML IV SCH (17:56)
[2021-12-21] MEDS: ATORVASTATIN 20 MG TAB PO SCH (21:20)
[2021-12-22 01:49] VITALS: BP 144/79
[2021-12-22] MEDS: LEVOTHYROXINE 50MCG TABLET (0.05MG) PO SCH (05:23)
[2021-12-22 06:29] VITALS: BP 147/82
[2021-12-22] MEDS: ADVAIR HFA 230/21MCG INHALER INH SCH ×2 (07:40→19:44)
[2021-12-22] MEDS: predniSONE 20 MG TAB PO SCH (08:50)
[2021-12-22] MEDS: APIXABAN 5 MG TAB (ELIQUIS) PO SCH ×2 (08:51→20:59)
[2021-12-22] MEDS: METOPROLOL SUCC (TopROL XL) 50MG **XL** TAB PO SCH (08:51)
[2021-12-22] MEDS: guaiFENesin ER 600 MG TAB PO SCH ×2 (08:52→20:59)
[2021-12-22] MEDS ORDERED: PRED10TA2 PO (12:01)
[2021-12-22 14:00] VITALS: BP 141/76
[2021-12-22] MEDS: ATORVASTATIN 20 MG TAB PO SCH (20:59)
[2021-12-23] MEDS: LEVOTHYROXINE 50MCG TABLET (0.05MG) PO SCH (05:53)
[2021-12-23 06:15] VITALS: BP 142/86
[2021-12-23] MEDS: ADVAIR HFA 230/21MCG INHALER INH SCH (07:12)
[2021-12-23 09:39] VITALS: BP 104/58
[2021-12-23] MEDS: guaiFENesin ER 600 MG TAB PO SCH (09:39)
[2021-12-23] MEDS: METOPROLOL SUCC (TopROL XL) 50MG **XL** TAB PO SCH (09:39)
[2021-12-23] MEDS: predniSONE 20 MG TAB PO SCH (09:40)
[2021-12-23] MEDS: APIXABAN 5 MG TAB (ELIQUIS) PO SCH (09:40)
== END 2021-12-23 12:00 | disposition home health service (06) | DRG 871 ==
LOC: M ED 15:10 → EDBD 15:10 → M ED INP 22:13 → M PCU 12-16 00:30 → M MS5PR 12-20 11:57
PROVIDERS: ADMIT Internal Medicine; ATTEND Family Medicine
DX: A41.9 Sepsis, unspecified organism (principal); J18.9 Pneumonia, unspecified organism; G93.41 Metabolic encephalopathy; J44.0 Chronic obstructive pulmonary disease with (acute) lower respiratory infection; J44.1 Chronic obstructive pulmonary disease with (acute) exacerbation; Z66 Do not resuscitate; I48.91 Unspecified atrial fibrillation; D69.6 Thrombocytopenia, unspecified; D64.9 Anemia, unspecified; I10 Essential (primary) hypertension; E78.5 Hyperlipidemia, unspecified; E03.9 Hypothyroidism, unspecified; Z79.01 Long term (current) use of anticoagulants; Z79.899 Other long term (current) drug therapy; Z98.1 Arthrodesis status; R09.02 Hypoxemia

== ENCOUNTER → 2021-12-30 | Outpatient (REF) | payer MEDICARE ==
[~2021-12-30] MED LIST changes: +KETO2SHA8 TOP; +MED REC COMMENT; +METO1TAB7 PO; +NYST1POW9 TOP; +PRED10TA2 PO
== END ==
LOC: M LAB REF 16:26
PROVIDERS: ATTEND Nurse Practitioner Adult Health
DX: J18.9 Pneumonia, unspecified organism (principal); Z20.822 Contact with and (suspected) exposure to COVID-19

== ENCOUNTER 2021-12-31 17:15 | Inpatient (IN) | payer MEDICARE ==
[~2021-12-31] VITALS: Ht 190.5 cm; Wt 96.5 kg
[2021-12-31 18:04] LABS: VENOUS HCO3 27.1 MEQ/L (23.0-27.0); VENOUS O2 SATURATION 56.6 % (60.0-80.0); VENOUS PARTIAL PRESSURE CO2 44.4 mmHg (38.0-50.0); VENOUS PARTIAL PRESSURE O2 32.2 mmHg (30.0-50.0); VENOUS PH 7.404 UNITS (7.330-7.430); VENOUS STANDARD HCO3 25.2 MEQ/L; VENOUS TOTAL CO2 28.5 MEQ/L (24.0-28.0)
[2021-12-31 18:08] LABS: BASO % 0.2 % (0.0-1.0); HEMATOCRIT 39.1 % (42.0-52.0); HEMOGLOBIN 12.8 g/dl (13.5-17.5); LYMPH # 0.5 10^3/uL (1.5-5.0); LYMPH % 7.7 % (24.0-44.0); MEAN CORPUSCULAR HGB CONC 32.7 g/dl (32.0-36.5); MONO # 0.6 10^3/uL (0.0-0.8); MONO % 10.3 % (2.0-8.0); NEUTROPHILS # 5.1 10^3/uL (1.5-8.5); NEUTROPHILS % 81.3 % (36.0-66.0); PLATELET COUNT, AUTOMATED 115 10^3/uL (150-450); RED BLOOD COUNT 3.76 10^6/uL (4.30-6.10); WHITE BLOOD COUNT 6.2 10^3/uL (4.0-10.0)
[2021-12-31 18:42] LABS: ABG BASE EXCESS -0.1 (-2.0-2.0); ABG O2 SATURATION 95.5 % (95.0-99.0); ABG PARTIAL PRESSURE CO2 32.9 mmHg (35.0-45.0); ABG STANDARD HCO3 24.4 MEQ/L (22.0-26.0); ABG pH (ARTERIAL) 7.462 UNITS (7.350-7.450)
[2021-12-31 18:43] LABS: CK-MB VALUE MASS < 1.0 NG/ML (<3.6); CPK CREATINE PHOSPHOKINASE 27 U/L (39-308)
[2021-12-31 18:48] LABS: ALBUMIN 3.3 GM/DL (3.2-5.2); ALT/SGPT 70 U/L (12-78); BILIRUBIN,DIRECT 0.3 MG/DL (0.0-0.2); BILIRUBIN,TOTAL 1.2 MG/DL (0.2-1.0); BLOOD UREA NITROGEN 19 MG/DL (7-18); CALCIUM LEVEL 8.5 MG/DL (8.8-10.2); CARBON DIOXIDE LEVEL 31 MEQ/L (21-32); CHLORIDE LEVEL 100 MEQ/L (98-107); CREATININE FOR GFR 1.05 MG/DL (0.70-1.30); GLOMERULAR FILTRATION RATE > 60.0 (>42); GLUCOSE, FASTING 84 MG/DL (70-100); NT-PRO BNP 2162 PG/ML (<450); POTASSIUM SERUM 4.2 MEQ/L (3.5-5.1); SODIUM LEVEL 137 MEQ/L (136-145); THYROXINE (T4) 6.5 UG/DL (4.5-12.0); TOTAL PROTEIN 6.6 GM/DL (6.4-8.2)
[2021-12-31] MEDS ORDERED: FUROSEMIDE 20MG/2ML VIAL (J1940) IV ONE (19:55)
[2021-12-31] MEDS ORDERED: HOME MED LIST COMPLETE! XX SCH (20:30)
[2021-12-31] MEDS ORDERED: ACETAMINOPHEN TAB 650MG DOSE (2X325MG) PO PRN (21:55)
[2021-12-31] MEDS ORDERED: MOM 30ML SUSPENSION UDC PO PRN (21:55)
[2021-12-31 22:46] LABS: FERRITIN 210 NG/ML (26-388); MAGNESIUM LEVEL 2.2 MG/DL (1.8-2.4)
[2021-12-31 23:06] LABS: INR 1.14
[2021-12-31 23:07] LABS: PARTIAL THROMBOPLASTIN TIME 38.3 SECONDS (25.9-37.0)
[2021-12-31 23:09] LABS: D-DIMER QUANT 1430.65 ng/ml (<500)
[2021-12-31 23:20] VITALS: BP 154/74
[2022-01-01] VITALS (8 sets, daily range): BP systolic 94–136; BP diastolic 57–65; O2SAT 88–93
[2022-01-01] MEDS: cefTRIAXone SOD 1 GM in D5W MINI-BAG PLUS 50 ML IV SCH ×2 (00:06→22:48)
[2022-01-01] MEDS: DOXYCYCLINE HYCLATE 100 MG in D5W MINI-BAG PLUS 100 ML IV SCH ×2 (00:48→12:16)
[2022-01-01] MEDS ORDERED: REMDESIVIR 200 MG in NS 250 ML IV ONE (01:00)
[2022-01-01] MEDS ORDERED: SODIUM CHLORIDE 0.9% INJ 10 ML SYR IV ONE (03:00)
[2022-01-01] MEDS: LEVOTHYROXINE 50MCG TABLET (0.05MG) PO SCH (05:39)
[2022-01-01] MEDS ORDERED: HEPARIN SOD (PORCINE) 5000UNITS/ML 1ML VIAL/SYRINGE SC SCH (06:00)
[2022-01-01 08:27] LABS: HEMATOCRIT 37.3 % (42.0-52.0); HEMOGLOBIN 12.3 g/dl (13.5-17.5); MEAN CORPUSCULAR HEMOGLOBIN 33.8 pg (27.0-33.0); MEAN CORPUSCULAR VOLUME 102.5 fl (80.0-96.0); PLATELET COUNT, AUTOMATED 102 10^3/uL (150-450); RED BLOOD COUNT 3.64 10^6/uL (4.30-6.10); WHITE BLOOD COUNT 2.8 10^3/uL (4.0-10.0)
[2022-01-01 08:51] LABS: ALBUMIN 2.9 GM/DL (3.2-5.2); ALT/SGPT 62 U/L (12-78); BILIRUBIN,DIRECT 0.2 MG/DL (0.0-0.2); BILIRUBIN,TOTAL 0.7 MG/DL (0.2-1.0); BLOOD UREA NITROGEN 19 MG/DL (7-18); CALCIUM LEVEL 8.4 MG/DL (8.8-10.2); CARBON DIOXIDE LEVEL 32 MEQ/L (21-32); CHLORIDE LEVEL 101 MEQ/L (98-107); CREATININE FOR GFR 0.91 MG/DL (0.70-1.30); GLOMERULAR FILTRATION RATE > 60.0 (>42); GLUCOSE, FASTING 125 MG/DL (70-100); LDH LACTATE DEHYDROGENASE 312 U/L (87-241); MAGNESIUM LEVEL 2.2 MG/DL (1.8-2.4); NT-PRO BNP 2677 PG/ML (<450); SODIUM LEVEL 138 MEQ/L (136-145); TOTAL PROTEIN 6.9 GM/DL (6.4-8.2)
[2022-01-01] MEDS ORDERED: FLUBLOK(EGG FREE)(QUAD)INFLUENZA VACC 0.5ML SYRINGE 18YRS & OLDER IM ONE (09:00)
[2022-01-01] MEDS: SPIRONOLACTONE 12.5MG PER 1/2 TABLET PO SCH (09:44)
[2022-01-01] MEDS: DOCUSATE SODIUM 100MG CAPSULE PO SCH ×2 (09:44→22:47)
[2022-01-01] MEDS: APIXABAN 5 MG TAB (ELIQUIS) PO SCH ×2 (09:45→22:47)
[2022-01-01] MEDS: guaiFENesin ER 600 MG TAB PO SCH ×2 (09:45→22:47)
[2022-01-01] MEDS: BARICITINIB 2MG TABLET (OLUMIANT) FOR EUA PO SCH (09:46)
[2022-01-01] MEDS: METOPROLOL SUCC (TopROL XL) 50MG **XL** TAB PO SCH (09:47)
[2022-01-01] MEDS: FUROSEMIDE 20MG/2ML VIAL (J1940) IV SCH ×2 (09:48→17:35)
[2022-01-01] MEDS: dexameTHASONE 4 MG/ML 1ML VIAL (J1100 PER 1MG) IV SCH (09:48)
[2022-01-01] MEDS: IPRATROPIUM 0.5MG/ALBUTEROL 2.5MG INH SOL UD 3ML (DUONEB) NEB SCH ×2 (18:12→19:16)
[2022-01-01] MEDS: ATORVASTATIN 20 MG TAB PO SCH (22:47)
[2022-01-02] VITALS (8 sets, daily range): BP systolic 107–139; BP diastolic 63–70; O2SAT 91–95
[2022-01-02] MEDS: DOXYCYCLINE HYCLATE 100 MG in D5W MINI-BAG PLUS 100 ML IV SCH (00:33)
[2022-01-02] MEDS: IPRATROPIUM 0.5MG/ALBUTEROL 2.5MG INH SOL UD 3ML (DUONEB) NEB SCH ×5 (01:07→20:09)
[2022-01-02] MEDS: REMDESIVIR 100 MG in NS 250 ML IV SCH (01:57)
[2022-01-02] MEDS: SODIUM CHLORIDE 0.9% INJ 10 ML SYR IV SCH (01:58)
[2022-01-02] MEDS: LEVOTHYROXINE 50MCG TABLET (0.05MG) PO SCH (06:09)
[2022-01-02 07:43] LABS: HEMATOCRIT 37.2 % (42.0-52.0); HEMOGLOBIN 12.2 g/dl (13.5-17.5); LYMPH # 0.3 10^3/uL (1.5-5.0); MEAN CORPUSCULAR HEMOGLOBIN 33.4 pg (27.0-33.0); MEAN CORPUSCULAR HGB CONC 32.8 g/dl (32.0-36.5); MEAN CORPUSCULAR VOLUME 101.9 fl (80.0-96.0); MONO # 0.5 10^3/uL (0.0-0.8); MONO % 16.9 % (2.0-8.0); NEUTROPHILS # 2.2 10^3/uL (1.5-8.5); NEUTROPHILS % 71.8 % (36.0-66.0); PLATELET COUNT, AUTOMATED 107 10^3/uL (150-450); RED BLOOD COUNT 3.65 10^6/uL (4.30-6.10); WHITE BLOOD COUNT 3.1 10^3/uL (4.0-10.0)
[2022-01-02 08:22] LABS: ALBUMIN 2.8 GM/DL (3.2-5.2); ALT/SGPT 96 U/L (12-78); BILIRUBIN,TOTAL 0.5 MG/DL (0.2-1.0); BLOOD UREA NITROGEN 26 MG/DL (7-18); C REACTIVE PROTEIN QUANTITATIV 9.18 MG/DL (0.00-0.30); CALCIUM LEVEL 8.3 MG/DL (8.8-10.2); CARBON DIOXIDE LEVEL 32 MEQ/L (21-32); CHLORIDE LEVEL 103 MEQ/L (98-107); CREATININE FOR GFR 0.98 MG/DL (0.70-1.30); FERRITIN 255 NG/ML (26-388); GLOMERULAR FILTRATION RATE > 60.0 (>42); GLUCOSE, FASTING 121 MG/DL (70-100); LDH LACTATE DEHYDROGENASE 309 U/L (87-241); MAGNESIUM LEVEL 2.1 MG/DL (1.8-2.4); POTASSIUM SERUM 4.1 MEQ/L (3.5-5.1); SODIUM LEVEL 140 MEQ/L (136-145); TOTAL PROTEIN 6.1 GM/DL (6.4-8.2)
[2022-01-02] MEDS ORDERED: FLUBLOK(EGG FREE)(QUAD)INFLUENZA VACC 0.5ML SYRINGE 18YRS & OLDER IM ONE (09:00)
[2022-01-02] MEDS: BARICITINIB 2MG TABLET (OLUMIANT) FOR EUA PO SCH (10:35)
[2022-01-02] MEDS: dexameTHASONE 4 MG/ML 1ML VIAL (J1100 PER 1MG) IV SCH (10:36)
[2022-01-02] MEDS: guaiFENesin ER 600 MG TAB PO SCH ×2 (10:36→20:56)
[2022-01-02] MEDS: METOPROLOL SUCC (TopROL XL) 50MG **XL** TAB PO SCH (10:36)
[2022-01-02] MEDS: SPIRONOLACTONE 12.5MG PER 1/2 TABLET PO SCH (10:36)
[2022-01-02] MEDS: DOCUSATE SODIUM 100MG CAPSULE PO SCH ×2 (10:37→20:56)
[2022-01-02] MEDS: FUROSEMIDE 20MG/2ML VIAL (J1940) IV SCH ×2 (10:37→17:49)
[2022-01-02] MEDS: APIXABAN 5 MG TAB (ELIQUIS) PO SCH ×2 (10:38→20:56)
[2022-01-02] MEDS ORDERED: DOXYCYCLINE HYCLATE 100 MG in D5W MINI-BAG PLUS 100 ML IV SCH (16:05)
[2022-01-02] MEDS ORDERED: cefTRIAXone SOD 1 GM in D5W MINI-BAG PLUS 50 ML IV SCH (16:05)
[2022-01-02] MEDS: ATORVASTATIN 20 MG TAB PO SCH (20:56)
[2022-01-03] VITALS (10 sets, daily range): BP systolic 118–140; BP diastolic 63–76; O2SAT 93–95
[2022-01-03] MEDS: REMDESIVIR 100 MG in NS 250 ML IV SCH (01:20)
[2022-01-03] MEDS: IPRATROPIUM 0.5MG/ALBUTEROL 2.5MG INH SOL UD 3ML (DUONEB) NEB SCH ×4 (01:26→19:46)
[2022-01-03] MEDS: SODIUM CHLORIDE 0.9% INJ 10 ML SYR IV SCH (02:20)
[2022-01-03] MEDS: LEVOTHYROXINE 50MCG TABLET (0.05MG) PO SCH (06:27)
[2022-01-03 08:37] LABS: BASO % 0.2 % (0.0-1.0); HEMATOCRIT 39.8 % (42.0-52.0); HEMOGLOBIN 13.4 g/dl (13.5-17.5); LYMPH # 0.4 10^3/uL (1.5-5.0); LYMPH % 7.6 % (24.0-44.0); MEAN CORPUSCULAR HEMOGLOBIN 34.4 pg (27.0-33.0); MEAN CORPUSCULAR HGB CONC 33.7 g/dl (32.0-36.5); MEAN CORPUSCULAR VOLUME 102.1 fl (80.0-96.0); MONO # 0.7 10^3/uL (0.0-0.8); MONO % 15.2 % (2.0-8.0); NEUTROPHILS # 3.5 10^3/uL (1.5-8.5); NEUTROPHILS % 76.1 % (36.0-66.0); PLATELET COUNT, AUTOMATED 115 10^3/uL (150-450); WHITE BLOOD COUNT 4.6 10^3/uL (4.0-10.0)
[2022-01-03 09:03] LABS: ALT/SGPT 127 U/L (12-78); BILIRUBIN,TOTAL 0.5 MG/DL (0.2-1.0); BLOOD UREA NITROGEN 28 MG/DL (7-18); CALCIUM LEVEL 8.3 MG/DL (8.8-10.2); CARBON DIOXIDE LEVEL 31 MEQ/L (21-32); CHLORIDE LEVEL 103 MEQ/L (98-107); CREATININE FOR GFR 0.93 MG/DL (0.70-1.30); GLOMERULAR FILTRATION RATE > 60.0 (>42); GLUCOSE, FASTING 127 MG/DL (70-100); LDH LACTATE DEHYDROGENASE 318 U/L (87-241); MAGNESIUM LEVEL 2.1 MG/DL (1.8-2.4); SODIUM LEVEL 142 MEQ/L (136-145); TOTAL PROTEIN 6.5 GM/DL (6.4-8.2)
[2022-01-03] MEDS: DOCUSATE SODIUM 100MG CAPSULE PO SCH ×2 (09:21→19:32)
[2022-01-03] MEDS: SPIRONOLACTONE 12.5MG PER 1/2 TABLET PO SCH (09:21)
[2022-01-03] MEDS: BARICITINIB 2MG TABLET (OLUMIANT) FOR EUA PO SCH (09:21)
[2022-01-03] MEDS: FUROSEMIDE 20MG/2ML VIAL (J1940) IV SCH (09:23)
[2022-01-03] MEDS: dexameTHASONE 4 MG/ML 1ML VIAL (J1100 PER 1MG) IV SCH (09:25)
[2022-01-03] MEDS: guaiFENesin ER 600 MG TAB PO SCH ×2 (09:26→19:32)
[2022-01-03] MEDS: METOPROLOL SUCC (TopROL XL) 50MG **XL** TAB PO SCH (09:26)
[2022-01-03] MEDS: APIXABAN 5 MG TAB (ELIQUIS) PO SCH ×2 (09:26→19:32)
[2022-01-03 14:10] LABS: MYCOPLASMA PNEUMONIAE IgG 190 U/mL (0-99); MYCOPLASMA PNEUMONIAE IgM <770 U/mL (0-769)
[2022-01-03] MEDS: ATORVASTATIN 20 MG TAB PO SCH (19:32)
[2022-01-04] VITALS (7 sets, daily range): BP systolic 116–125; BP diastolic 64–73; O2SAT 93–95
[2022-01-04] MEDS: REMDESIVIR 100 MG in NS 250 ML IV SCH (00:06)
[2022-01-04] MEDS: IPRATROPIUM 0.5MG/ALBUTEROL 2.5MG INH SOL UD 3ML (DUONEB) NEB SCH ×4 (01:04→19:29)
[2022-01-04] MEDS: SODIUM CHLORIDE 0.9% INJ 10 ML SYR IV SCH (02:14)
[2022-01-04] MEDS: LEVOTHYROXINE 50MCG TABLET (0.05MG) PO SCH (05:59)
[2022-01-04 08:53] LABS: HEMATOCRIT 39.2 % (42.0-52.0); HEMOGLOBIN 12.7 g/dl (13.5-17.5); LYMPH # 0.5 10^3/uL (1.5-5.0); LYMPH % 9.8 % (24.0-44.0); MEAN CORPUSCULAR HEMOGLOBIN 32.9 pg (27.0-33.0); MEAN CORPUSCULAR HGB CONC 32.4 g/dl (32.0-36.5); MEAN CORPUSCULAR VOLUME 101.6 fl (80.0-96.0); MONO # 0.6 10^3/uL (0.0-0.8); MONO % 11.6 % (2.0-8.0); NEUTROPHILS # 4.3 10^3/uL (1.5-8.5); NEUTROPHILS % 78.1 % (36.0-66.0); PLATELET COUNT, AUTOMATED 119 10^3/uL (150-450); RED BLOOD COUNT 3.86 10^6/uL (4.30-6.10); WHITE BLOOD COUNT 5.5 10^3/uL (4.0-10.0)
[2022-01-04] MEDS: dexameTHASONE 4 MG/ML 1ML VIAL (J1100 PER 1MG) IV SCH (09:16)
[2022-01-04 09:18] LABS: ALBUMIN 2.7 GM/DL (3.2-5.2); ALT/SGPT 114 U/L (12-78); BILIRUBIN,TOTAL 0.5 MG/DL (0.2-1.0); BLOOD UREA NITROGEN 30 MG/DL (7-18); C REACTIVE PROTEIN QUANTITATIV 2.75 MG/DL (0.00-0.30); CALCIUM LEVEL 8.1 MG/DL (8.8-10.2); CARBON DIOXIDE LEVEL 31 MEQ/L (21-32); CHLORIDE LEVEL 105 MEQ/L (98-107); CREATININE FOR GFR 0.83 MG/DL (0.70-1.30); GLOMERULAR FILTRATION RATE > 60.0 (>42); GLUCOSE, FASTING 117 MG/DL (70-100); LDH LACTATE DEHYDROGENASE 273 U/L (87-241); MAGNESIUM LEVEL 2.1 MG/DL (1.8-2.4); SODIUM LEVEL 140 MEQ/L (136-145); TOTAL PROTEIN 6.3 GM/DL (6.4-8.2)
[2022-01-04] MEDS: FUROSEMIDE 20MG/2ML VIAL (J1940) IV SCH (09:18)
[2022-01-04] MEDS: DOCUSATE SODIUM 100MG CAPSULE PO SCH ×2 (09:19→19:42)
[2022-01-04] MEDS: BARICITINIB 2MG TABLET (OLUMIANT) FOR EUA PO SCH (09:20)
[2022-01-04] MEDS: METOPROLOL SUCC (TopROL XL) 50MG **XL** TAB PO SCH (09:20)
[2022-01-04] MEDS: guaiFENesin ER 600 MG TAB PO SCH ×2 (09:21→19:43)
[2022-01-04] MEDS: SPIRONOLACTONE 12.5MG PER 1/2 TABLET PO SCH (09:21)
[2022-01-04] MEDS: APIXABAN 5 MG TAB (ELIQUIS) PO SCH ×2 (09:21→19:43)
[2022-01-04 16:08] LABS: BODY FLUID CULTURE Not indicated. (.); LEGIONELLA ANTIGEN URINE Negative (Negative); ORGANISM ID Not indicated. (.); SPECIMEN SOURCE Urine (.); URINE STREP PNEUMONIAE ANTIGEN Negative (Negative)
[2022-01-04] MEDS: ATORVASTATIN 20 MG TAB PO SCH (19:43)
[2022-01-05] VITALS (7 sets, daily range): BP systolic 108–133; BP diastolic 56–78; O2SAT 94–96
[2022-01-05] MEDS: IPRATROPIUM 0.5MG/ALBUTEROL 2.5MG INH SOL UD 3ML (DUONEB) NEB SCH ×4 (01:11→19:41)
[2022-01-05] MEDS: LEVOTHYROXINE 50MCG TABLET (0.05MG) PO SCH (05:04)
[2022-01-05 08:17] LABS: BASO % 0.1 % (0.0-1.0); HEMATOCRIT 39.7 % (42.0-52.0); HEMOGLOBIN 13.1 g/dl (13.5-17.5); LYMPH # 0.5 10^3/uL (1.5-5.0); LYMPH % 5.9 % (24.0-44.0); MEAN CORPUSCULAR HEMOGLOBIN 33.7 pg (27.0-33.0); MEAN CORPUSCULAR VOLUME 102.1 fl (80.0-96.0); MONO # 0.8 10^3/uL (0.0-0.8); MONO % 10.1 % (2.0-8.0); NEUTROPHILS % 83.4 % (36.0-66.0); PLATELET COUNT, AUTOMATED 127 10^3/uL (150-450); RED BLOOD COUNT 3.89 10^6/uL (4.30-6.10); WHITE BLOOD COUNT 8.4 10^3/uL (4.0-10.0)
[2022-01-05 08:54] LABS: ALBUMIN 2.9 GM/DL (3.2-5.2); ALT/SGPT 94 U/L (12-78); BILIRUBIN,TOTAL 0.8 MG/DL (0.2-1.0); BLOOD UREA NITROGEN 27 MG/DL (7-18); C REACTIVE PROTEIN QUANTITATIV 1.97 MG/DL (0.00-0.30); CALCIUM LEVEL 8.5 MG/DL (8.8-10.2); CARBON DIOXIDE LEVEL 30 MEQ/L (21-32); CHLORIDE LEVEL 103 MEQ/L (98-107); CREATININE FOR GFR 0.77 MG/DL (0.70-1.30); GLOMERULAR FILTRATION RATE > 60.0 (>42); GLUCOSE, FASTING 108 MG/DL (70-100); LDH LACTATE DEHYDROGENASE 298 U/L (87-241); MAGNESIUM LEVEL 2.1 MG/DL (1.8-2.4); POTASSIUM SERUM 4.2 MEQ/L (3.5-5.1); SODIUM LEVEL 140 MEQ/L (136-145); TOTAL PROTEIN 6.1 GM/DL (6.4-8.2)
[2022-01-05] MEDS: FUROSEMIDE 20MG/2ML VIAL (J1940) IV SCH (09:09)
[2022-01-05] MEDS: dexameTHASONE 4 MG/ML 1ML VIAL (J1100 PER 1MG) IV SCH (09:12)
[2022-01-05] MEDS: guaiFENesin ER 600 MG TAB PO SCH ×2 (09:15→20:22)
[2022-01-05] MEDS: METOPROLOL SUCC (TopROL XL) 50MG **XL** TAB PO SCH (09:15)
[2022-01-05] MEDS: APIXABAN 5 MG TAB (ELIQUIS) PO SCH ×2 (09:15→20:22)
[2022-01-05] MEDS: DOCUSATE SODIUM 100MG CAPSULE PO SCH ×2 (09:15→20:22)
[2022-01-05] MEDS: BARICITINIB 2MG TABLET (OLUMIANT) FOR EUA PO SCH (09:16)
[2022-01-05] MEDS: SPIRONOLACTONE 12.5MG PER 1/2 TABLET PO SCH (14:41)
[2022-01-05 15:09] LABS: CHLAMYDIA PNEUMONIAE IgM <1:10 (Neg:<1:10)
[2022-01-05] MEDS: ATORVASTATIN 20 MG TAB PO SCH (20:22)
[2022-01-06] MEDS: IPRATROPIUM 0.5MG/ALBUTEROL 2.5MG INH SOL UD 3ML (DUONEB) NEB SCH ×2 (00:53→08:02)
[2022-01-06 04:00] VITALS: BP 148/75
[2022-01-06] MEDS: LEVOTHYROXINE 50MCG TABLET (0.05MG) PO SCH (06:11)
[2022-01-06 06:50] LABS: BASO % 0.1 % (0.0-1.0); HEMATOCRIT 38.1 % (42.0-52.0); HEMOGLOBIN 12.5 g/dl (13.5-17.5); LYMPH # 0.5 10^3/uL (1.5-5.0); LYMPH % 7.1 % (24.0-44.0); MEAN CORPUSCULAR HEMOGLOBIN 33.2 pg (27.0-33.0); MEAN CORPUSCULAR HGB CONC 32.8 g/dl (32.0-36.5); MEAN CORPUSCULAR VOLUME 101.1 fl (80.0-96.0); MONO # 0.7 10^3/uL (0.0-0.8); MONO % 9.8 % (2.0-8.0); NEUTROPHILS # 6.2 10^3/uL (1.5-8.5); NEUTROPHILS % 82.6 % (36.0-66.0); PLATELET COUNT, AUTOMATED 125 10^3/uL (150-450); RED BLOOD COUNT 3.77 10^6/uL (4.30-6.10); WHITE BLOOD COUNT 7.5 10^3/uL (4.0-10.0)
[2022-01-06 07:09] LABS: ALBUMIN 2.8 GM/DL (3.2-5.2); ALT/SGPT 77 U/L (12-78); BILIRUBIN,TOTAL 0.8 MG/DL (0.2-1.0); BLOOD UREA NITROGEN 26 MG/DL (7-18); C REACTIVE PROTEIN QUANTITATIV 1.44 MG/DL (0.00-0.30); CALCIUM LEVEL 8.2 MG/DL (8.8-10.2); CARBON DIOXIDE LEVEL 28 MEQ/L (21-32); CHLORIDE LEVEL 105 MEQ/L (98-107); CREATININE FOR GFR 0.79 MG/DL (0.70-1.30); GLOMERULAR FILTRATION RATE > 60.0 (>42); GLUCOSE, FASTING 110 MG/DL (70-100); LDH LACTATE DEHYDROGENASE 284 U/L (87-241); MAGNESIUM LEVEL 2.1 MG/DL (1.8-2.4); POTASSIUM SERUM 4.3 MEQ/L (3.5-5.1); SODIUM LEVEL 138 MEQ/L (136-145); TOTAL PROTEIN 6.3 GM/DL (6.4-8.2)
[2022-01-06] MEDS: FUROSEMIDE 20MG/2ML VIAL (J1940) IV SCH (08:59)
[2022-01-06] MEDS: SPIRONOLACTONE 12.5MG PER 1/2 TABLET PO SCH (08:59)
[2022-01-06] MEDS: APIXABAN 5 MG TAB (ELIQUIS) PO SCH (09:00)
[2022-01-06] MEDS: dexameTHASONE 4 MG/ML 1ML VIAL (J1100 PER 1MG) IV SCH (09:00)
[2022-01-06] MEDS: guaiFENesin ER 600 MG TAB PO SCH (09:00)
[2022-01-06] MEDS: BARICITINIB 2MG TABLET (OLUMIANT) FOR EUA PO SCH (09:00)
[2022-01-06] MEDS: DOCUSATE SODIUM 100MG CAPSULE PO SCH (09:00)
[2022-01-06 09:02] VITALS: BP 110/66
[2022-01-06] MEDS: METOPROLOL SUCC (TopROL XL) 50MG **XL** TAB PO SCH (09:02)
[2022-01-07] MEDS ORDERED: PRED10TA2 PO (16:16)
== END 2022-01-06 14:15 | disposition home health service (06) | DRG 177 ==
LOC: M ED 17:15 → M ED INP 21:54 → UNDOADMIN 21:54 → ENRESERV 22:08 → M ED INP 23:20 → M 4MAIN 23:20 → UNDODISIN 01-02 13:25 → M 4MAIN 01-02 14:01
PROVIDERS: ADMIT Family Medicine; ATTEND Internal Medicine
PROC: 3E0333Z Introduction of Anti-inflammatory into Peripheral Vein, Percutaneous Approach (ICD-10-PCS; principal; 2022-01-01)
PROC: XW033E5 Introduction of Remdesivir Anti-infective into Peripheral Vein, Percutaneous Approach, New Technology Group 5 (ICD-10-PCS; 2022-01-01)
DX: U07.1 COVID-19 (principal); J12.82 Pneumonia due to coronavirus disease 2019; J15.9 Unspecified bacterial pneumonia; J96.01 Acute respiratory failure with hypoxia; I50.33 Acute on chronic diastolic (congestive) heart failure; J44.0 Chronic obstructive pulmonary disease with (acute) lower respiratory infection; E87.2 Acidosis; Z99.81 Dependence on supplemental oxygen; D69.6 Thrombocytopenia, unspecified; I48.0 Paroxysmal atrial fibrillation; Z79.01 Long term (current) use of anticoagulants; E03.9 Hypothyroidism, unspecified; E78.5 Hyperlipidemia, unspecified; Z98.1 Arthrodesis status; Z87.891 Personal history of nicotine dependence; I11.0 Hypertensive heart disease with heart failure; Z79.899 Other long term (current) drug therapy; R74.01 Elevation of levels of liver transaminase levels; Z79.52 Long term (current) use of systemic steroids

== ENCOUNTER 2022-01-17 14:04 | Inpatient (IN) | payer MEDICARE ==
[~2022-01-17] VITALS: Ht 190.5 cm; Wt 90.4 kg
[2022-01-17 15:26] LABS: BASO % 0.1 % (0.0-1.0); EOS % 0.2 % (0.0-3.0); HEMATOCRIT 41.2 % (42.0-52.0); HEMOGLOBIN 13.6 g/dl (13.5-17.5); LYMPH # 0.7 10^3/uL (1.5-5.0); LYMPH % 6.5 % (24.0-44.0); MEAN CORPUSCULAR HEMOGLOBIN 33.6 pg (27.0-33.0); MEAN CORPUSCULAR VOLUME 101.7 fl (80.0-96.0); MONO # 1.2 10^3/uL (0.0-0.8); MONO % 11.8 % (2.0-8.0); NEUTROPHILS # 8.1 10^3/uL (1.5-8.5); PLATELET COUNT, AUTOMATED 110 10^3/uL (150-450); RED BLOOD COUNT 4.05 10^6/uL (4.30-6.10); WHITE BLOOD COUNT 9.9 10^3/uL (4.0-10.0)
[2022-01-17 15:38] LABS: INR 1.02; PROTHROMBIN TIME 13.8 SECONDS (12.7-14.5)
[2022-01-17 15:39] LABS: PARTIAL THROMBOPLASTIN TIME 39.4 SECONDS (25.9-37.0)
[2022-01-17 15:58] LABS: RSV AMPLIFICATION NEGATIVE (NEGATIVE)
[2022-01-17 16:08] LABS: BLOOD UREA NITROGEN 26 MG/DL (7-18); CALCIUM LEVEL 8.5 MG/DL (8.8-10.2); CARBON DIOXIDE LEVEL 31 MEQ/L (21-32); CHLORIDE LEVEL 103 MEQ/L (98-107); CREATININE FOR GFR 1.03 MG/DL (0.70-1.30); ETHYL ALCOHOL (ETHANOL) < 0.003 % (0.000-0.010); GLOMERULAR FILTRATION RATE > 60.0 (>42); GLUCOSE, FASTING 108 MG/DL (70-100); MAGNESIUM LEVEL 2.3 MG/DL (1.8-2.4); POTASSIUM SERUM 4.1 MEQ/L (3.5-5.1); SODIUM LEVEL 138 MEQ/L (136-145)
[2022-01-17] MEDS ORDERED: cefTRIAXone SOD 1 GM in D5W MINI-BAG PLUS 50 ML IV ONE (18:05)
[2022-01-17] MEDS ORDERED: AZITHROMYCIN INJ 500 MG, VIAL MATE ADAPTER 1 EACH in NS 250 ML IV ONE (18:05)
[2022-01-17 20:05] LABS: NT-PRO BNP 3001 PG/ML (<450)
[2022-01-17] MEDS: APIXABAN 5 MG TAB (ELIQUIS) PO SCH (21:00)
[2022-01-17] MEDS ORDERED: NS 1,000 ML IV SCH (21:45)
[2022-01-17] MEDS ORDERED: NS 1,000 ML IV ONE (21:45)
[2022-01-18] MEDS ORDERED: PIPERACILLIN/TAZOBACTAM SOD 4.5 GM in D5W MINI-BAG PLUS 50 ML IV SCH (02:00)
[2022-01-18 03:06] LABS: BASO % 0.1 % (0.0-1.0); EOS # 0.1 10^3/uL (0.0-0.5); EOS % 0.8 % (0.0-3.0); HEMATOCRIT 36.9 % (42.0-52.0); HEMOGLOBIN 12.3 g/dl (13.5-17.5); LYMPH # 0.6 10^3/uL (1.5-5.0); LYMPH % 8.4 % (24.0-44.0); MEAN CORPUSCULAR HEMOGLOBIN 33.9 pg (27.0-33.0); MEAN CORPUSCULAR HGB CONC 33.3 g/dl (32.0-36.5); MEAN CORPUSCULAR VOLUME 101.7 fl (80.0-96.0); MONO # 0.9 10^3/uL (0.0-0.8); MONO % 12.4 % (2.0-8.0); NEUTROPHILS # 5.6 10^3/uL (1.5-8.5); NEUTROPHILS % 77.9 % (36.0-66.0); PLATELET COUNT, AUTOMATED 105 10^3/uL (150-450); RED BLOOD COUNT 3.63 10^6/uL (4.30-6.10); WHITE BLOOD COUNT 7.3 10^3/uL (4.0-10.0)
[2022-01-18 03:27] LABS: BLOOD UREA NITROGEN 23 MG/DL (7-18); CALCIUM LEVEL 7.5 MG/DL (8.8-10.2); CARBON DIOXIDE LEVEL 27 MEQ/L (21-32); CHLORIDE LEVEL 108 MEQ/L (98-107); CREATININE FOR GFR 0.91 MG/DL (0.70-1.30); GLOMERULAR FILTRATION RATE > 60.0 (>42); GLUCOSE, FASTING 92 MG/DL (70-100); POTASSIUM SERUM 4.2 MEQ/L (3.5-5.1); SODIUM LEVEL 140 MEQ/L (136-145)
[2022-01-18] MEDS ORDERED: PRED10TA2 PO (06:22)
[2022-01-18] MEDS ORDERED: PATIENT COMMENT (06:24)
[2022-01-18] MEDS ORDERED: HOME MED LIST COMPLETE! XX SCH (06:25)
[2022-01-18] MEDS: LEVOTHYROXINE 50MCG TABLET (0.05MG) PO SCH (07:30)
[2022-01-18 08:42] VITALS: BP 148/70
[2022-01-18 09:00] VITALS: O2SAT 95
[2022-01-18] MEDS ORDERED: LACTOBACILLUS ACIDOPHILUS CAP (BACID) PO SCH (09:00)
[2022-01-18] MEDS: SPIRONOLACTONE 12.5MG PER 1/2 TABLET PO SCH (09:10)
[2022-01-18] MEDS: METOPROLOL SUCC (TopROL XL) 50MG **XL** TAB PO SCH (09:10)
[2022-01-18] MEDS: predniSONE 5 MG TAB PO SCH (09:10)
[2022-01-18] MEDS: APIXABAN 5 MG TAB (ELIQUIS) PO SCH ×2 (09:10→20:24)
[2022-01-18 11:20] VITALS: O2SAT 95
[2022-01-18] MEDS: NYSTATIN 100,000 UNITS/GM TOPICAL PWD 15 GM TOP SCH ×2 (11:56→20:23)
[2022-01-18 14:00] VITALS: BP 137/62
[2022-01-18] MEDS ORDERED: AZITHROMYCIN INJ 500 MG, VIAL MATE ADAPTER 1 EACH in NS 250 ML IV SCH (18:00)
[2022-01-18] MEDS: ATORVASTATIN 20 MG TAB PO SCH (20:24)
[2022-01-18 22:00] VITALS: BP 134/66
[2022-01-19 05:03] LABS: BASO % 0.1 % (0.0-1.0); EOS # 0.1 10^3/uL (0.0-0.5); EOS % 1.2 % (0.0-3.0); HEMATOCRIT 36.7 % (42.0-52.0); HEMOGLOBIN 12.1 g/dl (13.5-17.5); LYMPH # 0.6 10^3/uL (1.5-5.0); LYMPH % 7.9 % (24.0-44.0); MEAN CORPUSCULAR HEMOGLOBIN 33.7 pg (27.0-33.0); MEAN CORPUSCULAR VOLUME 102.2 fl (80.0-96.0); MONO # 0.9 10^3/uL (0.0-0.8); MONO % 11.2 % (2.0-8.0); NEUTROPHILS # 6.4 10^3/uL (1.5-8.5); NEUTROPHILS % 79.1 % (36.0-66.0); RED BLOOD COUNT 3.59 10^6/uL (4.30-6.10); WHITE BLOOD COUNT 8.1 10^3/uL (4.0-10.0)
[2022-01-19 05:31] LABS: BLOOD UREA NITROGEN 15 MG/DL (7-18); CARBON DIOXIDE LEVEL 29 MEQ/L (21-32); CHLORIDE LEVEL 106 MEQ/L (98-107); CREATININE FOR GFR 0.99 MG/DL (0.70-1.30); GLOMERULAR FILTRATION RATE > 60.0 (>42); GLUCOSE, FASTING 86 MG/DL (70-100); SODIUM LEVEL 139 MEQ/L (136-145)
[2022-01-19] MEDS: LEVOTHYROXINE 50MCG TABLET (0.05MG) PO SCH (05:44)
[2022-01-19 05:50] LABS: PLATELET COUNT, AUTOMATED 91 10^3/uL (150-450)
[2022-01-19 06:00] VITALS: BP 142/81
[2022-01-19] MEDS: SPIRONOLACTONE 12.5MG PER 1/2 TABLET PO SCH (08:22)
[2022-01-19] MEDS: APIXABAN 5 MG TAB (ELIQUIS) PO SCH ×2 (08:22→21:04)
[2022-01-19] MEDS: predniSONE 5 MG TAB PO SCH (08:22)
[2022-01-19] MEDS: NYSTATIN 100,000 UNITS/GM TOPICAL PWD 15 GM TOP SCH ×2 (08:23→21:03)
[2022-01-19] MEDS: METOPROLOL SUCC (TopROL XL) 50MG **XL** TAB PO SCH (08:25)
[2022-01-19 14:00] VITALS: BP 108/53
[2022-01-19] MEDS: ATORVASTATIN 20 MG TAB PO SCH (21:04)
[2022-01-20 04:00] VITALS: BP 111/59
[2022-01-20] MEDS: LEVOTHYROXINE 50MCG TABLET (0.05MG) PO SCH (05:15)
[2022-01-20 06:24] LABS: BASO % 0.3 % (0.0-1.0); EOS # 0.1 10^3/uL (0.0-0.5); EOS % 1.7 % (0.0-3.0); HEMATOCRIT 35.8 % (42.0-52.0); HEMOGLOBIN 11.8 g/dl (13.5-17.5); LYMPH # 0.7 10^3/uL (1.5-5.0); LYMPH % 10.5 % (24.0-44.0); MEAN CORPUSCULAR HEMOGLOBIN 33.4 pg (27.0-33.0); MEAN CORPUSCULAR VOLUME 101.4 fl (80.0-96.0); MONO # 0.9 10^3/uL (0.0-0.8); NEUTROPHILS # 5.3 10^3/uL (1.5-8.5); NEUTROPHILS % 74.8 % (36.0-66.0); RED BLOOD COUNT 3.53 10^6/uL (4.30-6.10); WHITE BLOOD COUNT 7.1 10^3/uL (4.0-10.0)
[2022-01-20 06:25] LABS: PLATELET COUNT, AUTOMATED 82 10^3/uL (150-450)
[2022-01-20 06:39] LABS: BLOOD UREA NITROGEN 13 MG/DL (7-18); CALCIUM LEVEL 8.5 MG/DL (8.8-10.2); CARBON DIOXIDE LEVEL 28 MEQ/L (21-32); CHLORIDE LEVEL 106 MEQ/L (98-107); GLOMERULAR FILTRATION RATE > 60.0 (>42); GLUCOSE, FASTING 91 MG/DL (70-100); POTASSIUM SERUM 4.2 MEQ/L (3.5-5.1); SODIUM LEVEL 138 MEQ/L (136-145)
[2022-01-20 08:00] VITALS: BP 111/59
[2022-01-20] MEDS: NYSTATIN 100,000 UNITS/GM TOPICAL PWD 15 GM TOP SCH ×2 (09:26→20:38)
[2022-01-20] MEDS: METOPROLOL SUCC (TopROL XL) 50MG **XL** TAB PO SCH (09:28)
[2022-01-20] MEDS: SPIRONOLACTONE 12.5MG PER 1/2 TABLET PO SCH (09:29)
[2022-01-20] MEDS: APIXABAN 5 MG TAB (ELIQUIS) PO SCH ×2 (09:29→20:38)
[2022-01-20 14:10] VITALS: BP 120/60
[2022-01-20] MEDS: ATORVASTATIN 20 MG TAB PO SCH (20:38)
[2022-01-21 05:42] VITALS: BP 127/60
[2022-01-21] MEDS: LEVOTHYROXINE 50MCG TABLET (0.05MG) PO SCH (05:58)
[2022-01-21] MEDS: APIXABAN 5 MG TAB (ELIQUIS) PO SCH ×2 (08:35→20:01)
[2022-01-21] MEDS: METOPROLOL SUCC (TopROL XL) 50MG **XL** TAB PO SCH (08:35)
[2022-01-21] MEDS: SPIRONOLACTONE 12.5MG PER 1/2 TABLET PO SCH (08:35)
[2022-01-21] MEDS: NYSTATIN 100,000 UNITS/GM TOPICAL PWD 15 GM TOP SCH ×2 (08:36→20:02)
[2022-01-21] MEDS: ATORVASTATIN 20 MG TAB PO SCH (20:01)
[2022-01-22 04:30] VITALS: BP 130/56
[2022-01-22] MEDS: LEVOTHYROXINE 50MCG TABLET (0.05MG) PO SCH (05:18)
[2022-01-22] MEDS: APIXABAN 5 MG TAB (ELIQUIS) PO SCH ×2 (09:36→20:38)
[2022-01-22] MEDS: SPIRONOLACTONE 12.5MG PER 1/2 TABLET PO SCH (09:37)
[2022-01-22] MEDS: METOPROLOL SUCC (TopROL XL) 50MG **XL** TAB PO SCH (09:38)
[2022-01-22] MEDS: NYSTATIN 100,000 UNITS/GM TOPICAL PWD 15 GM TOP SCH ×2 (09:38→20:39)
[2022-01-22] MEDS: ATORVASTATIN 20 MG TAB PO SCH (20:38)
[2022-01-23 04:35] VITALS: BP 104/54
[2022-01-23] MEDS: LEVOTHYROXINE 50MCG TABLET (0.05MG) PO SCH (05:29)
[2022-01-23] MEDS: SPIRONOLACTONE 12.5MG PER 1/2 TABLET PO SCH (08:58)
[2022-01-23] MEDS: APIXABAN 5 MG TAB (ELIQUIS) PO SCH ×2 (08:58→21:23)
[2022-01-23] MEDS: NYSTATIN 100,000 UNITS/GM TOPICAL PWD 15 GM TOP SCH ×2 (09:00→21:24)
[2022-01-23] MEDS: METOPROLOL SUCC (TopROL XL) 50MG **XL** TAB PO SCH (09:00)
[2022-01-23] MEDS: ATORVASTATIN 20 MG TAB PO SCH (21:24)
[2022-01-23 21:29] VITALS: BP 110/65
[2022-01-23] MEDS: ACETAMINOPHEN TAB 650MG DOSE (2X325MG) PO PRN (21:36)
[2022-01-24 04:00] VITALS: BP 114/59
[2022-01-24] MEDS: LEVOTHYROXINE 50MCG TABLET (0.05MG) PO SCH (05:36)
[2022-01-24] MEDS: APIXABAN 5 MG TAB (ELIQUIS) PO SCH ×2 (09:05→21:34)
[2022-01-24] MEDS: SPIRONOLACTONE 12.5MG PER 1/2 TABLET PO SCH (09:05)
[2022-01-24] MEDS: METOPROLOL SUCC (TopROL XL) 50MG **XL** TAB PO SCH (09:07)
[2022-01-24] MEDS: NYSTATIN 100,000 UNITS/GM TOPICAL PWD 15 GM TOP SCH ×2 (09:09→21:35)
[2022-01-24] MEDS: ATORVASTATIN 20 MG TAB PO SCH (21:34)
[2022-01-25 04:55] VITALS: BP 110/59
[2022-01-25] MEDS: LEVOTHYROXINE 50MCG TABLET (0.05MG) PO SCH (06:29)
[2022-01-25 08:00] VITALS: BP 110/59
[2022-01-25] MEDS: SPIRONOLACTONE 12.5MG PER 1/2 TABLET PO SCH (08:12)
[2022-01-25] MEDS: APIXABAN 5 MG TAB (ELIQUIS) PO SCH ×2 (08:13→20:07)
[2022-01-25] MEDS: METOPROLOL SUCC (TopROL XL) 50MG **XL** TAB PO SCH (08:13)
[2022-01-25] MEDS: NYSTATIN 100,000 UNITS/GM TOPICAL PWD 15 GM TOP SCH ×2 (08:14→20:07)
[2022-01-25] MEDS: ATORVASTATIN 20 MG TAB PO SCH (20:07)
[2022-01-26 04:00] VITALS: BP 109/64
[2022-01-26] MEDS: LEVOTHYROXINE 50MCG TABLET (0.05MG) PO SCH (05:55)
[2022-01-26] MEDS: SPIRONOLACTONE 12.5MG PER 1/2 TABLET PO SCH (09:13)
[2022-01-26] MEDS: NYSTATIN 100,000 UNITS/GM TOPICAL PWD 15 GM TOP SCH ×2 (09:13→21:19)
[2022-01-26] MEDS: METOPROLOL SUCC (TopROL XL) 50MG **XL** TAB PO SCH (09:13)
[2022-01-26] MEDS: APIXABAN 5 MG TAB (ELIQUIS) PO SCH ×2 (09:13→21:18)
[2022-01-26] MEDS: ATORVASTATIN 20 MG TAB PO SCH (21:18)
[2022-01-27 04:00] VITALS: BP 119/66
[2022-01-27] MEDS: LEVOTHYROXINE 50MCG TABLET (0.05MG) PO SCH (05:35)
[2022-01-27] MEDS: APIXABAN 5 MG TAB (ELIQUIS) PO SCH ×2 (09:28→20:06)
[2022-01-27] MEDS: SPIRONOLACTONE 12.5MG PER 1/2 TABLET PO SCH (09:28)
[2022-01-27] MEDS: NYSTATIN 100,000 UNITS/GM TOPICAL PWD 15 GM TOP SCH ×2 (09:28→20:07)
[2022-01-27] MEDS: METOPROLOL SUCC (TopROL XL) 50MG **XL** TAB PO SCH (09:28)
[2022-01-27] MEDS: ATORVASTATIN 20 MG TAB PO SCH (20:06)
[2022-01-28] MEDS: LEVOTHYROXINE 50MCG TABLET (0.05MG) PO SCH (05:11)
[2022-01-28 06:03] VITALS: BP 107/58
[2022-01-28] MEDS: SPIRONOLACTONE 12.5MG PER 1/2 TABLET PO SCH (08:43)
[2022-01-28] MEDS: APIXABAN 5 MG TAB (ELIQUIS) PO SCH ×2 (08:43→21:25)
[2022-01-28] MEDS: METOPROLOL SUCC (TopROL XL) 50MG **XL** TAB PO SCH (08:43)
[2022-01-28] MEDS: NYSTATIN 100,000 UNITS/GM TOPICAL PWD 15 GM TOP SCH ×2 (08:44→21:25)
[2022-01-28] MEDS: ATORVASTATIN 20 MG TAB PO SCH (21:25)
[2022-01-28] MEDS: RAMELTEON 8 MG TAB (ROZEREM) PO PRN (21:25)
[2022-01-29 04:00] VITALS: BP 90/60
[2022-01-29] MEDS: LEVOTHYROXINE 50MCG TABLET (0.05MG) PO SCH (05:56)
[2022-01-29] MEDS: METOPROLOL SUCC (TopROL XL) 50MG **XL** TAB PO SCH (09:00)
[2022-01-29] MEDS: SPIRONOLACTONE 12.5MG PER 1/2 TABLET PO SCH (09:21)
[2022-01-29] MEDS: APIXABAN 5 MG TAB (ELIQUIS) PO SCH ×2 (09:21→21:41)
[2022-01-29] MEDS: NYSTATIN 100,000 UNITS/GM TOPICAL PWD 15 GM TOP SCH ×2 (09:21→21:41)
[2022-01-29 20:00] VITALS: BP 128/57
[2022-01-29] MEDS: RAMELTEON 8 MG TAB (ROZEREM) PO PRN (21:41)
[2022-01-29] MEDS: ATORVASTATIN 20 MG TAB PO SCH (21:41)
[2022-01-29] MEDS: ACETAMINOPHEN TAB 650MG DOSE (2X325MG) PO PRN (21:44)
[2022-01-30 04:00] VITALS: BP 100/57
[2022-01-30 04:44] VITALS: BP 118/70
[2022-01-30] MEDS: LEVOTHYROXINE 50MCG TABLET (0.05MG) PO SCH (05:50)
[2022-01-30 07:17] LABS: BASO % 0.4 % (0.0-1.0); EOS # 0.1 10^3/uL (0.0-0.5); EOS % 2.1 % (0.0-3.0); HEMOGLOBIN 12.1 g/dl (13.5-17.5); LYMPH % 18.9 % (24.0-44.0); MEAN CORPUSCULAR HEMOGLOBIN 32.9 pg (27.0-33.0); MEAN CORPUSCULAR HGB CONC 32.7 g/dl (32.0-36.5); MEAN CORPUSCULAR VOLUME 100.5 fl (80.0-96.0); MONO # 0.8 10^3/uL (0.0-0.8); NEUTROPHILS # 3.2 10^3/uL (1.5-8.5); NEUTROPHILS % 62.2 % (36.0-66.0); PLATELET COUNT, AUTOMATED 157 10^3/uL (150-450); RED BLOOD COUNT 3.68 10^6/uL (4.30-6.10); WHITE BLOOD COUNT 5.1 10^3/uL (4.0-10.0)
[2022-01-30 07:38] LABS: BLOOD UREA NITROGEN 11 MG/DL (7-18); CALCIUM LEVEL 8.1 MG/DL (8.8-10.2); CARBON DIOXIDE LEVEL 28 MEQ/L (21-32); CHLORIDE LEVEL 104 MEQ/L (98-107); CREATININE FOR GFR 1.02 MG/DL (0.70-1.30); GLOMERULAR FILTRATION RATE > 60.0 (>42); GLUCOSE, FASTING 95 MG/DL (70-100); MAGNESIUM LEVEL 2.1 MG/DL (1.8-2.4); POTASSIUM SERUM 4.1 MEQ/L (3.5-5.1); SODIUM LEVEL 135 MEQ/L (136-145)
[2022-01-30] MEDS: NYSTATIN 100,000 UNITS/GM TOPICAL PWD 15 GM TOP SCH ×2 (09:06→20:37)
[2022-01-30] MEDS: ACETAMINOPHEN TAB 650MG DOSE (2X325MG) PO PRN ×2 (09:06→20:36)
[2022-01-30] MEDS: SPIRONOLACTONE 12.5MG PER 1/2 TABLET PO SCH (09:06)
[2022-01-30] MEDS: APIXABAN 5 MG TAB (ELIQUIS) PO SCH ×2 (09:06→20:37)
[2022-01-30] MEDS: METOPROLOL SUCC (TopROL XL) 50MG **XL** TAB PO SCH (09:12)
[2022-01-30] MEDS: ATORVASTATIN 20 MG TAB PO SCH (20:37)
[2022-01-31 04:07] VITALS: BP 102/59
[2022-01-31] MEDS: LEVOTHYROXINE 50MCG TABLET (0.05MG) PO SCH (05:39)
[2022-01-31] MEDS: ACETAMINOPHEN TAB 650MG DOSE (2X325MG) PO PRN ×2 (05:42→21:49)
[2022-01-31 06:41] LABS: HEMATOCRIT 36.9 % (42.0-52.0); HEMOGLOBIN 11.9 g/dl (13.5-17.5); MEAN CORPUSCULAR HEMOGLOBIN 33.2 pg (27.0-33.0); MEAN CORPUSCULAR HGB CONC 32.2 g/dl (32.0-36.5); MEAN CORPUSCULAR VOLUME 103.1 fl (80.0-96.0); PLATELET COUNT, AUTOMATED 165 10^3/uL (150-450); RED BLOOD COUNT 3.58 10^6/uL (4.30-6.10); WHITE BLOOD COUNT 4.7 10^3/uL (4.0-10.0)
[2022-01-31 07:13] LABS: ALBUMIN 2.2 GM/DL (3.2-5.2); ALT/SGPT 41 U/L (12-78); BILIRUBIN,TOTAL 0.4 MG/DL (0.2-1.0); BLOOD UREA NITROGEN 9 MG/DL (7-18); CALCIUM LEVEL 8.5 MG/DL (8.8-10.2); CARBON DIOXIDE LEVEL 27 MEQ/L (21-32); CHLORIDE LEVEL 106 MEQ/L (98-107); CREATININE FOR GFR 1.03 MG/DL (0.70-1.30); GLOMERULAR FILTRATION RATE > 60.0 (>42); GLUCOSE, FASTING 84 MG/DL (70-100); POTASSIUM SERUM 4.4 MEQ/L (3.5-5.1); SODIUM LEVEL 139 MEQ/L (136-145); TOTAL PROTEIN 5.9 GM/DL (6.4-8.2)
[2022-01-31] MEDS: NYSTATIN 100,000 UNITS/GM TOPICAL PWD 15 GM TOP SCH ×3 (08:47→20:53)
[2022-01-31] MEDS: SPIRONOLACTONE 12.5MG PER 1/2 TABLET PO SCH (08:47)
[2022-01-31] MEDS: METOPROLOL SUCC (TopROL XL) 50MG **XL** TAB PO SCH (08:47)
[2022-01-31] MEDS: APIXABAN 5 MG TAB (ELIQUIS) PO SCH ×2 (08:47→20:49)
[2022-01-31 15:26] VITALS: BP 120/69
[2022-01-31 19:25] VITALS: BP 117/68
[2022-01-31] MEDS: ATORVASTATIN 20 MG TAB PO SCH (20:49)
[2022-01-31] MEDS: RAMELTEON 8 MG TAB (ROZEREM) PO PRN (21:48)
[2022-02-01] MEDS: LEVOTHYROXINE 50MCG TABLET (0.05MG) PO SCH (05:30)
[2022-02-01 06:00] VITALS: BP 117/68
[2022-02-01] MEDS: NYSTATIN 100,000 UNITS/GM TOPICAL PWD 15 GM TOP SCH ×2 (09:33→21:00)
[2022-02-01] MEDS: APIXABAN 5 MG TAB (ELIQUIS) PO SCH ×2 (09:33→21:25)
[2022-02-01] MEDS: SPIRONOLACTONE 12.5MG PER 1/2 TABLET PO SCH (09:33)
[2022-02-01] MEDS: METOPROLOL SUCC (TopROL XL) 50MG **XL** TAB PO SCH (09:33)
[2022-02-01] MEDS: ATORVASTATIN 20 MG TAB PO SCH (21:25)
[2022-02-01] MEDS: RAMELTEON 8 MG TAB (ROZEREM) PO PRN (21:25)
[2022-02-01] MEDS: ACETAMINOPHEN TAB 650MG DOSE (2X325MG) PO PRN (21:25)
[2022-02-02 05:30] VITALS: BP 106/66
[2022-02-02] MEDS: LEVOTHYROXINE 50MCG TABLET (0.05MG) PO SCH (05:34)
[2022-02-02 09:00] VITALS: BP 109/65
[2022-02-02] MEDS: METOPROLOL SUCC (TopROL XL) 50MG **XL** TAB PO SCH (09:00)
[2022-02-02] MEDS: NYSTATIN 100,000 UNITS/GM TOPICAL PWD 15 GM TOP SCH (09:19)
[2022-02-02] MEDS: SPIRONOLACTONE 12.5MG PER 1/2 TABLET PO SCH (09:19)
[2022-02-02] MEDS: APIXABAN 5 MG TAB (ELIQUIS) PO SCH (09:19)
== END 2022-02-02 13:51 | DRG 948 ==
LOC: M ED 14:04 → M ED INP 14:05 → ENRESERV 01-18 08:05 → M 4MAIN 01-18 08:42 → OBSVTOIN 01-19 16:58 → M MSPAV 01-31 15:19
PROVIDERS: ADMIT Internal Medicine; ATTEND Internal Medicine
DX: R53.1 Weakness (principal); I50.32 Chronic diastolic (congestive) heart failure; J90 Pleural effusion, not elsewhere classified; E87.2 Acidosis; I48.20 Chronic atrial fibrillation, unspecified; J96.11 Chronic respiratory failure with hypoxia; I11.0 Hypertensive heart disease with heart failure; J44.9 Chronic obstructive pulmonary disease, unspecified; E03.9 Hypothyroidism, unspecified; D69.6 Thrombocytopenia, unspecified; E78.5 Hyperlipidemia, unspecified; R55 Syncope and collapse; F03.90 Unspecified dementia, unspecified severity, without behavioral disturbance, psychotic disturbance, mood disturbance, and anxiety; Z86.16 Personal history of COVID-19; Z79.01 Long term (current) use of anticoagulants; Z91.19 Patient's noncompliance with other medical treatment and regimen; Z79.899 Other long term (current) drug therapy; Z87.891 Personal history of nicotine dependence

== ENCOUNTER → 2022-02-08 | Outpatient (REF) | payer MEDICARE ==
[~2022-02-08] MED LIST changes: +PATIENT COMMENT
[2022-02-08 08:49] LABS: BLOOD UREA NITROGEN 10 MG/DL (7-18); CALCIUM LEVEL 8.4 MG/DL (8.8-10.2); CARBON DIOXIDE LEVEL 27 MEQ/L (21-32); CHLORIDE LEVEL 103 MEQ/L (98-107); CREATININE FOR GFR 0.91 MG/DL (0.70-1.30); GLOMERULAR FILTRATION RATE > 60.0 (>42); GLUCOSE, FASTING 96 MG/DL (70-100); POTASSIUM SERUM 4.2 MEQ/L (3.5-5.1); SODIUM LEVEL 136 MEQ/L (136-145)
== END ==
LOC: SKLAB4 11:19
PROVIDERS: ATTEND Nurse Practitioner Family
DX: I50.9 Heart failure, unspecified (principal)

== ENCOUNTER → 2022-02-28 | Outpatient (REF) | payer MEDICARE ==
[2022-02-28 13:36] LABS: HEMATOCRIT 38.7 % (42.0-52.0); HEMOGLOBIN 12.7 g/dl (13.5-17.5); MEAN CORPUSCULAR HEMOGLOBIN 32.9 pg (27.0-33.0); MEAN CORPUSCULAR HGB CONC 32.8 g/dl (32.0-36.5); MEAN CORPUSCULAR VOLUME 100.3 fl (80.0-96.0); PLATELET COUNT, AUTOMATED 173 10^3/uL (150-450); RED BLOOD COUNT 3.86 10^6/uL (4.30-6.10); WHITE BLOOD COUNT 5.4 10^3/uL (4.0-10.0)
[2022-02-28 13:53] LABS: ALBUMIN 2.5 GM/DL (3.2-5.2); ALT/SGPT 10 U/L (12-78); BILIRUBIN,TOTAL 0.8 MG/DL (0.2-1.0); BLOOD UREA NITROGEN 5 MG/DL (7-18); CALCIUM LEVEL 8.4 MG/DL (8.8-10.2); CARBON DIOXIDE LEVEL 28 MEQ/L (21-32); CHLORIDE LEVEL 99 MEQ/L (98-107); CREATININE FOR GFR 0.91 MG/DL (0.70-1.30); GLOMERULAR FILTRATION RATE > 60.0 (>42); GLUCOSE, FASTING 112 MG/DL (70-100); POTASSIUM SERUM 3.9 MEQ/L (3.5-5.1); SODIUM LEVEL 133 MEQ/L (136-145); TOTAL PROTEIN 6.2 GM/DL (6.4-8.2)
[2022-02-28 14:37] LABS: APPEARANCE, URINE HAZY (CLEAR); BACTERIA, URINE AUTO 2+ (NEGATIVE); BILIRUBIN, URINE AUTO NEGATIVE (NEGATIVE); BLOOD, URINE BLOOD 3+ (NEGATIVE); COLOR, URINE YELLOW (YELLOW); GLUCOSE, URINE (UA) AUTO NEGATIVE (NEGATIVE); KETONE, URINE AUTO NEGATIVE (NEGATIVE); LEUKOCYTE ESTERASE, URINE AUTO 1+ (NEGATIVE); MUCUS, URINE SMALL (NEGATIVE); NITRITE, URINE AUTO NEGATIVE (NEGATIVE); PROTEIN, URINE AUTO 1+ mg/dL (NEGATIVE); RBC, URINE AUTO 32 /HPF (0-3); SPECIFIC GRAVITY URINE AUTO 1.012 (1.002-1.035); SQUAMOUS EPITHELIAL CELL UR AU 1 /HPF (0-6); UROBILINOGEN, URINE AUTO 0.2 mg/dL (0.0-2.0); WBC, URINE AUTO 18 /HPF (0-3)
== END ==
LOC: SKLAB4 11:09
PROVIDERS: ATTEND Internal Medicine
DX: R41.82 Altered mental status, unspecified (principal)

== ENCOUNTER 2022-05-04 09:57 | Inpatient (IN) | payer MEDICARE ==
[~2022-05-04] VITALS: Ht 190.5 cm; Wt 85.1 kg
[2022-05-04] VITALS (15 sets, daily range): BP systolic 107–142; BP diastolic 53–82; O2SAT 85–96
[2022-05-04 10:47] LABS: VENOUS PH 7.297 UNITS (7.330-7.430)
[2022-05-04 10:48] LABS: VENOUS BASE EXCESS -0.6 (-2.0-2.0); VENOUS HCO3 26.9 MEQ/L (23.0-27.0); VENOUS O2 SATURATION 55.7 % (60.0-80.0); VENOUS PARTIAL PRESSURE CO2 56.4 mmHg (38.0-50.0); VENOUS PARTIAL PRESSURE O2 33.7 mmHg (30.0-50.0); VENOUS STANDARD HCO3 22.9 MEQ/L; VENOUS TOTAL CO2 28.7 MEQ/L (24.0-28.0)
[2022-05-04 10:51] LABS: BASO % 0.2 % (0.0-1.0); EOS % 0.7 % (0.0-3.0); HEMATOCRIT 40.4 % (42.0-52.0); HEMOGLOBIN 13.1 g/dl (13.5-17.5); LYMPH # 1.1 10^3/uL (1.5-5.0); LYMPH % 19.7 % (24.0-44.0); MEAN CORPUSCULAR HEMOGLOBIN 32.5 pg (27.0-33.0); MEAN CORPUSCULAR HGB CONC 32.4 g/dl (32.0-36.5); MEAN CORPUSCULAR VOLUME 100.2 fl (80.0-96.0); MONO # 0.9 10^3/uL (0.0-0.8); MONO % 16.2 % (2.0-8.0); NEUTROPHILS # 3.6 10^3/uL (1.5-8.5); PLATELET COUNT, AUTOMATED 148 10^3/uL (150-450); RED BLOOD COUNT 4.03 10^6/uL (4.30-6.10); WHITE BLOOD COUNT 5.8 10^3/uL (4.0-10.0)
[2022-05-04 11:23] LABS: ALBUMIN 3.1 GM/DL (3.2-5.2); ALT/SGPT 13 U/L (12-78); BILIRUBIN,DIRECT 0.4 MG/DL (0.0-0.2); BILIRUBIN,TOTAL 0.8 MG/DL (0.2-1.0); BLOOD UREA NITROGEN 8 MG/DL (7-18); CALCIUM LEVEL 8.4 MG/DL (8.8-10.2); CARBON DIOXIDE LEVEL 29 MEQ/L (21-32); CHLORIDE LEVEL 96 MEQ/L (98-107); CREATININE FOR GFR 1.06 MG/DL (0.70-1.30); GLOMERULAR FILTRATION RATE > 60.0 (>42); GLUCOSE, FASTING 129 MG/DL (70-100); NT-PRO BNP 3278 PG/ML (<450); POTASSIUM SERUM 3.9 MEQ/L (3.5-5.1); SODIUM LEVEL 133 MEQ/L (136-145); TOTAL PROTEIN 6.8 GM/DL (6.4-8.2)
[2022-05-04] MEDS ORDERED: FUROSEMIDE 40MG/4ML VIAL (J1940) IV ONE (11:50)
[2022-05-04] MEDS ORDERED: MIDO2.5T PO (12:29)
[2022-05-04] MEDS ORDERED: BISAC5TA PO (12:29)
[2022-05-04] MEDS ORDERED: FURO20TA2 PO (12:29)
[2022-05-04] MEDS ORDERED: HOME MED LIST COMPLETE! XX SCH (13:35)
[2022-05-04 13:53] LABS: MB/CK RELATIVE INDEX 1.56 (< OR =4)
[2022-05-04 14:13] LABS: THYROID STIMULATING HORMONE 5.36 uIU/ML (0.358-3.740); TOTAL PROTEIN 6.7 GM/DL (6.4-8.2)
[2022-05-04] MEDS ORDERED: BISACODYL 5 MG TAB PO PRN (15:35)
[2022-05-04] MEDS ORDERED: LIDOCAINE 1% MDV 20ML VIAL As Ordered ONE (15:56)
[2022-05-04] MEDS: MIDODRINE 5 MG TAB PO SCH (16:45)
[2022-05-04 17:22] LABS: PH BODY FLUID 7.632 UNITS (NOT ESTABLISHED); SOURCE, BODY FLUID pH PLEURAL
[2022-05-04 17:39] LABS: APPEARANCE, BODY FLUID HAZY (CLEAR); PLEURAL FL COLOR YELLOW (COLORLESS); SOURCE, BODY FLUID PLEURAL
[2022-05-04] MEDS: FUROSEMIDE injection 250 MG in D5W 225 ML IV SCH (18:04)
[2022-05-04 18:58] LABS: BLOOD UREA NITROGEN 8 MG/DL (7-18); CALCIUM LEVEL 8.4 MG/DL (8.8-10.2); CARBON DIOXIDE LEVEL 31 MEQ/L (21-32); CHLORIDE LEVEL 97 MEQ/L (98-107); CREATININE FOR GFR 0.91 MG/DL (0.70-1.30); GLOMERULAR FILTRATION RATE > 60.0 (>42); GLUCOSE, FASTING 93 MG/DL (70-100); POTASSIUM SERUM 3.4 MEQ/L (3.5-5.1); SODIUM LEVEL 134 MEQ/L (136-145)
[2022-05-04 18:59] LABS: CK-MB VALUE MASS 2.6 NG/ML (<3.6); MB/CK RELATIVE INDEX 2.02 (< OR =4)
[2022-05-04 19:15] LABS: AMYLASE, BODY FLUID 27 U/L (NOT ESTABLISHED); CHOLESTEROL, BODY FLUID < 50 MG/DL (NOT ESTABLISHED); LDH, BODY FLUID 85 U/L (NOT ESTABLISHED); SOURCE, BODY FLUID ALBUMIN PLEURAL; SOURCE, BODY FLUID AMYLASE PLEURAL; SOURCE, BODY FLUID CHOL PLEURAL; SOURCE, BODY FLUID GLUCOSE PLEURAL; SOURCE, BODY FLUID LDH PLEURAL; SOURCE, BODY FLUID TOT PROTEIN PLEURAL; SOURCE, BODY FLUID TRIG PLEURAL; TOTAL PROTEIN, BODY FLUID 3.3 G/DL (NOT ESTABLISHED); TRIGLYCERIDE, BODY FLUID 13 MG/DL (NOT ESTABLISHED)
[2022-05-04] MEDS: NYSTATIN 100,000 UNITS/GM TOPICAL PWD 15 GM TOP SCH (20:39)
[2022-05-04] MEDS: ATORVASTATIN 20 MG TAB PO SCH (20:39)
[2022-05-04] MEDS: APIXABAN 5 MG TAB (ELIQUIS) PO SCH (20:39)
[2022-05-04] MEDS: guaiFENesin ER 600 MG TAB PO SCH (20:39)
[2022-05-04] MEDS ORDERED: MIDODRINE 2.5 MG TAB PO SCH (21:00)
[2022-05-05] VITALS (25 sets, daily range): BP systolic 107–133; BP diastolic 56–70; O2SAT 87–96
[2022-05-05 00:29] LABS: BLOOD UREA NITROGEN 8 MG/DL (7-18); CALCIUM LEVEL 8.4 MG/DL (8.8-10.2); CARBON DIOXIDE LEVEL 34 MEQ/L (21-32); CHLORIDE LEVEL 98 MEQ/L (98-107); GLOMERULAR FILTRATION RATE > 60.0 (>42); GLUCOSE, FASTING 126 MG/DL (70-100); POTASSIUM SERUM 4.1 MEQ/L (3.5-5.1); SODIUM LEVEL 135 MEQ/L (136-145)
[2022-05-05 00:33] LABS: CK-MB VALUE MASS 2.1 NG/ML (<3.6); MB/CK RELATIVE INDEX 1.68 (< OR =4)
[2022-05-05 05:32] LABS: HEMATOCRIT 39.7 % (42.0-52.0); HEMOGLOBIN 12.9 g/dl (13.5-17.5); MEAN CORPUSCULAR HEMOGLOBIN 32.3 pg (27.0-33.0); MEAN CORPUSCULAR HGB CONC 32.5 g/dl (32.0-36.5); MEAN CORPUSCULAR VOLUME 99.3 fl (80.0-96.0); PLATELET COUNT, AUTOMATED 131 10^3/uL (150-450)
[2022-05-05] MEDS: LEVOTHYROXINE 50MCG TABLET (0.05MG) PO SCH (05:41)
[2022-05-05 06:19] LABS: BLOOD UREA NITROGEN 7 MG/DL (7-18); CALCIUM LEVEL 8.3 MG/DL (8.8-10.2); CARBON DIOXIDE LEVEL 33 MEQ/L (21-32); CHLORIDE LEVEL 98 MEQ/L (98-107); CREATININE FOR GFR 0.88 MG/DL (0.70-1.30); FREE THYROXINE INDEX 2.3 % (1.4-3.8); GLOMERULAR FILTRATION RATE > 60.0 (>42); GLUCOSE, FASTING 95 MG/DL (70-100); MAGNESIUM LEVEL 2.1 MG/DL (1.8-2.4); SODIUM LEVEL 136 MEQ/L (136-145); T UPTAKE 34 % (33-40); THYROXINE (T4) 6.8 UG/DL (4.5-12.0)
[2022-05-05] MEDS ORDERED: ACETAMINOPHEN 500 MG TAB PO ONE ×2 (08:00→17:00)
[2022-05-05] MEDS: APIXABAN 5 MG TAB (ELIQUIS) PO SCH ×2 (08:18→21:22)
[2022-05-05] MEDS: guaiFENesin ER 600 MG TAB PO SCH ×2 (08:18→21:22)
[2022-05-05] MEDS: MIDODRINE 5 MG TAB PO SCH ×3 (08:18→17:07)
[2022-05-05] MEDS: LIDOCAINE 5% (LIDODERM) PATCH TD SCH (08:19)
[2022-05-05] MEDS: NYSTATIN 100,000 UNITS/GM TOPICAL PWD 15 GM TOP SCH ×2 (08:23→21:22)
[2022-05-05] MEDS: SPIRONOLACTONE 12.5MG PER 1/2 TABLET PO SCH (08:38)
[2022-05-05] MEDS: FUROSEMIDE injection 250 MG in D5W 225 ML IV SCH (17:07)
[2022-05-05] MEDS: ATORVASTATIN 20 MG TAB PO SCH (21:22)
[2022-05-05] MEDS: REMOVE LIDODERM XX SCH (21:22)
[2022-05-06] VITALS (10 sets, daily range): BP systolic 106–147; BP diastolic 57–70; O2SAT 92–96
[2022-05-06 05:41] LABS: HEMATOCRIT 42.1 % (42.0-52.0); HEMOGLOBIN 14.1 g/dl (13.5-17.5); MEAN CORPUSCULAR HEMOGLOBIN 32.8 pg (27.0-33.0); MEAN CORPUSCULAR HGB CONC 33.5 g/dl (32.0-36.5); MEAN CORPUSCULAR VOLUME 97.9 fl (80.0-96.0); PLATELET COUNT, AUTOMATED 141 10^3/uL (150-450); WHITE BLOOD COUNT 6.1 10^3/uL (4.0-10.0)
[2022-05-06] MEDS: LEVOTHYROXINE 50MCG TABLET (0.05MG) PO SCH (05:47)
[2022-05-06 06:17] LABS: BLOOD UREA NITROGEN 9 MG/DL (7-18); CALCIUM LEVEL 8.2 MG/DL (8.8-10.2); CARBON DIOXIDE LEVEL 33 MEQ/L (21-32); CHLORIDE LEVEL 96 MEQ/L (98-107); CREATININE FOR GFR 0.95 MG/DL (0.70-1.30); GLOMERULAR FILTRATION RATE > 60.0 (>42); GLUCOSE, FASTING 97 MG/DL (70-100); MAGNESIUM LEVEL 1.7 MG/DL (1.8-2.4); POTASSIUM SERUM 3.7 MEQ/L (3.5-5.1); SODIUM LEVEL 134 MEQ/L (136-145)
[2022-05-06] MEDS: FUROSEMIDE 20 MG TAB PO SCH (08:25)
[2022-05-06] MEDS: SPIRONOLACTONE 12.5MG PER 1/2 TABLET PO SCH (08:25)
[2022-05-06] MEDS: guaiFENesin ER 600 MG TAB PO SCH ×2 (08:25→21:06)
[2022-05-06] MEDS: APIXABAN 5 MG TAB (ELIQUIS) PO SCH ×2 (08:25→21:06)
[2022-05-06] MEDS: ACETAMINOPHEN 500 MG TAB PO SCH ×2 (08:25→21:07)
[2022-05-06] MEDS: MIDODRINE 5 MG TAB PO SCH ×3 (08:26→16:45)
[2022-05-06] MEDS: NYSTATIN 100,000 UNITS/GM TOPICAL PWD 15 GM TOP SCH ×2 (08:26→21:07)
[2022-05-06] MEDS: LIDOCAINE 5% (LIDODERM) PATCH TD SCH (08:26)
[2022-05-06] MEDS: MAG SULF 1GM/100ML (MAG RUN) 1 GM in IV 1 EA IV ONE ×2 (09:52→10:46)
[2022-05-06] MEDS: MAGNESIUM OXIDE 400MG TAB (MAG-OX) PO SCH ×2 (09:52→21:06)
[2022-05-06] MEDS ORDERED: LIDOCAINE 2% 5ML JELLY UROJET TOP PRN (17:50)
[2022-05-06] MEDS: ATORVASTATIN 20 MG TAB PO SCH (21:06)
[2022-05-06] MEDS: REMOVE LIDODERM XX SCH (21:08)
[2022-05-07 05:05] VITALS: BP 133/76
[2022-05-07 05:17] VITALS: BP_SYST 1
[2022-05-07] MEDS: LEVOTHYROXINE 50MCG TABLET (0.05MG) PO SCH (06:30)
[2022-05-07 06:46] LABS: BLOOD UREA NITROGEN 10 MG/DL (7-18); CALCIUM LEVEL 8.4 MG/DL (8.8-10.2); CARBON DIOXIDE LEVEL 32 MEQ/L (21-32); CHLORIDE LEVEL 95 MEQ/L (98-107); CREATININE FOR GFR 0.91 MG/DL (0.70-1.30); GLOMERULAR FILTRATION RATE > 60.0 (>42); GLUCOSE, FASTING 119 MG/DL (70-100); POTASSIUM SERUM 3.4 MEQ/L (3.5-5.1); SODIUM LEVEL 133 MEQ/L (136-145)
[2022-05-07] MEDS: LIDOCAINE 5% (LIDODERM) PATCH TD SCH (08:39)
[2022-05-07] MEDS: guaiFENesin ER 600 MG TAB PO SCH ×2 (08:40→20:08)
[2022-05-07] MEDS: FUROSEMIDE 20 MG TAB PO SCH (08:40)
[2022-05-07] MEDS: ACETAMINOPHEN 500 MG TAB PO SCH ×2 (08:41→20:08)
[2022-05-07] MEDS: MIDODRINE 5 MG TAB PO SCH ×3 (08:42→15:11)
[2022-05-07] MEDS: NYSTATIN 100,000 UNITS/GM TOPICAL PWD 15 GM TOP SCH ×2 (08:42→20:07)
[2022-05-07] MEDS: MAGNESIUM OXIDE 400MG TAB (MAG-OX) PO SCH ×2 (08:42→20:07)
[2022-05-07] MEDS: SPIRONOLACTONE 25 MG TAB PO SCH (08:42)
[2022-05-07] MEDS: APIXABAN 5 MG TAB (ELIQUIS) PO SCH ×2 (08:42→20:07)
[2022-05-07 08:47] VITALS: BP 120/73
[2022-05-07 12:11] VITALS: BP 120/69
[2022-05-07] MEDS ORDERED: metOLazone 2.5 MG TAB PO ONE (13:00)
[2022-05-07] MEDS ORDERED: FUROSEMIDE 40 MG TAB PO ONE (13:00)
[2022-05-07] MEDS ORDERED: POTASSIUM CHLORIDE 10MEQ SR TABLET PO ONE (13:00)
[2022-05-07 15:11] VITALS: BP 122/67
[2022-05-07] MEDS: FUROSEMIDE injection 250 MG in D5W 225 ML IV SCH (18:52)
[2022-05-07 20:05] VITALS: BP 125/76
[2022-05-07] MEDS: ATORVASTATIN 20 MG TAB PO SCH (20:07)
[2022-05-07] MEDS: REMOVE LIDODERM XX SCH (20:08)
[2022-05-07 21:46] LABS: BLOOD UREA NITROGEN 11 MG/DL (7-18); CALCIUM LEVEL 8.5 MG/DL (8.8-10.2); CARBON DIOXIDE LEVEL 32 MEQ/L (21-32); CHLORIDE LEVEL 97 MEQ/L (98-107); GLOMERULAR FILTRATION RATE > 60.0 (>42); GLUCOSE, FASTING 132 MG/DL (70-100); POTASSIUM SERUM 3.8 MEQ/L (3.5-5.1); SODIUM LEVEL 134 MEQ/L (136-145)
[2022-05-08] VITALS (7 sets, daily range): BP systolic 116–134; BP diastolic 58–71
[2022-05-08 06:26] LABS: BLOOD UREA NITROGEN 11 MG/DL (7-18); CALCIUM LEVEL 8.6 MG/DL (8.8-10.2); CARBON DIOXIDE LEVEL 36 MEQ/L (21-32); CHLORIDE LEVEL 95 MEQ/L (98-107); CREATININE FOR GFR 0.91 MG/DL (0.70-1.30); GLOMERULAR FILTRATION RATE > 60.0 (>42); GLUCOSE, FASTING 120 MG/DL (70-100); POTASSIUM SERUM 3.6 MEQ/L (3.5-5.1); SODIUM LEVEL 135 MEQ/L (136-145)
[2022-05-08] MEDS: LEVOTHYROXINE 50MCG TABLET (0.05MG) PO SCH (06:38)
[2022-05-08] MEDS: MIDODRINE 5 MG TAB PO SCH ×3 (08:40→15:12)
[2022-05-08] MEDS: APIXABAN 5 MG TAB (ELIQUIS) PO SCH ×2 (08:40→21:17)
[2022-05-08] MEDS: SPIRONOLACTONE 25 MG TAB PO SCH (08:40)
[2022-05-08] MEDS: MAGNESIUM OXIDE 400MG TAB (MAG-OX) PO SCH ×2 (08:40→21:17)
[2022-05-08] MEDS: guaiFENesin ER 600 MG TAB PO SCH ×2 (08:40→21:16)
[2022-05-08] MEDS: ACETAMINOPHEN 500 MG TAB PO SCH ×2 (08:41→21:16)
[2022-05-08] MEDS: NYSTATIN 100,000 UNITS/GM TOPICAL PWD 15 GM TOP SCH ×2 (08:42→21:17)
[2022-05-08] MEDS: LIDOCAINE 5% (LIDODERM) PATCH TD SCH (08:42)
[2022-05-08] MEDS ORDERED: FUROSEMIDE 40 MG TAB PO SCH (09:00)
[2022-05-08] MEDS: POTASSIUM CHLORIDE 10MEQ SR TABLET PO SCH (09:12)
[2022-05-08] MEDS ORDERED: MOM 30ML SUSPENSION UDC PO PRN (16:00)
[2022-05-08] MEDS ORDERED: FLEET ENEMA PR PRN (16:00)
[2022-05-08] MEDS ORDERED: MOM 30ML SUSPENSION UDC PO ONE (16:15)
[2022-05-08] MEDS: FUROSEMIDE injection 250 MG in D5W 225 ML IV SCH (17:02)
[2022-05-08] MEDS: ATORVASTATIN 20 MG TAB PO SCH (21:16)
[2022-05-08] MEDS: SENOKOT S TAB PO SCH (21:17)
[2022-05-08] MEDS: REMOVE LIDODERM XX SCH (21:17)
[2022-05-09] VITALS (10 sets, daily range): BP systolic 94–148; BP diastolic 50–78; O2SAT 91
[2022-05-09] MEDS: LEVOTHYROXINE 50MCG TABLET (0.05MG) PO SCH (05:41)
[2022-05-09 06:11] LABS: HEMATOCRIT 46.3 % (42.0-52.0); HEMOGLOBIN 15.3 g/dl (13.5-17.5); MEAN CORPUSCULAR HEMOGLOBIN 31.8 pg (27.0-33.0); MEAN CORPUSCULAR VOLUME 96.3 fl (80.0-96.0); PLATELET COUNT, AUTOMATED 157 10^3/uL (150-450); RED BLOOD COUNT 4.81 10^6/uL (4.30-6.10); WHITE BLOOD COUNT 11.4 10^3/uL (4.0-10.0)
[2022-05-09 06:19] LABS: INR 1.47; PROTHROMBIN TIME 18.2 SECONDS (12.7-14.5)
[2022-05-09 06:20] LABS: PARTIAL THROMBOPLASTIN TIME 52.4 SECONDS (25.9-37.0)
[2022-05-09 06:47] LABS: BLOOD UREA NITROGEN 13 MG/DL (7-18); CALCIUM LEVEL 9.2 MG/DL (8.8-10.2); CARBON DIOXIDE LEVEL 34 MEQ/L (21-32); CHLORIDE LEVEL 90 MEQ/L (98-107); CREATININE FOR GFR 1.15 MG/DL (0.70-1.30); GLOMERULAR FILTRATION RATE > 60.0 (>42); GLUCOSE, FASTING 125 MG/DL (70-100); MAGNESIUM LEVEL 2.2 MG/DL (1.8-2.4); POTASSIUM SERUM 3.9 MEQ/L (3.5-5.1); SODIUM LEVEL 131 MEQ/L (136-145)
[2022-05-09 06:50] LABS: ALBUMIN 3.3 GM/DL (3.2-5.2); BILIRUBIN,DIRECT 0.3 MG/DL (0.0-0.2); BILIRUBIN,TOTAL 0.9 MG/DL (0.2-1.0); TOTAL PROTEIN 7.8 GM/DL (6.4-8.2)
[2022-05-09 07:40] LABS: ATYPICAL LYMPH 2 % (0-5); EOSINOPHILS 1 % (0-3); LYMPHOCYTES 6 % (16-44); MONOCYTES 10 % (0-5); NEUTROPHILS 81 % (28-66); PLATELET ESTIMATE NORMAL (NORMAL)
[2022-05-09] MEDS: NYSTATIN 100,000 UNITS/GM TOPICAL PWD 15 GM TOP SCH ×2 (08:52→20:40)
[2022-05-09] MEDS: POTASSIUM CHLORIDE 10MEQ SR TABLET PO SCH (08:52)
[2022-05-09] MEDS: MIRALAX *UNIT DOSE* 17GM PACKET PO SCH (08:53)
[2022-05-09] MEDS: MIDODRINE 5 MG TAB PO SCH ×3 (08:53→16:14)
[2022-05-09] MEDS: DOCUSATE SODIUM 100MG CAPSULE PO SCH ×3 (08:53→21:00)
[2022-05-09] MEDS: APIXABAN 5 MG TAB (ELIQUIS) PO SCH ×2 (08:53→20:41)
[2022-05-09] MEDS: SPIRONOLACTONE 25 MG TAB PO SCH (08:53)
[2022-05-09] MEDS: MAGNESIUM OXIDE 400MG TAB (MAG-OX) PO SCH ×2 (08:53→20:41)
[2022-05-09] MEDS: ACETAMINOPHEN 500 MG TAB PO SCH ×2 (08:53→20:41)
[2022-05-09] MEDS: SENOKOT S TAB PO SCH ×2 (08:53→21:00)
[2022-05-09] MEDS: guaiFENesin ER 600 MG TAB PO SCH ×2 (08:53→20:41)
[2022-05-09] MEDS: LIDOCAINE 5% (LIDODERM) PATCH TD SCH (08:54)
[2022-05-09 15:46] LABS: PH BODY FLUID 7.718 UNITS (NOT ESTABLISHED); SOURCE, BODY FLUID pH PLEURAL
[2022-05-09 15:53] LABS: APPEARANCE, BODY FLUID CLOUDY (CLEAR); PLEURAL FL COLOR RED (COLORLESS); SOURCE, BODY FLUID PLEURAL
[2022-05-09 16:29] LABS: AMYLASE, BODY FLUID 46 U/L (NOT ESTABLISHED); CHOLESTEROL, BODY FLUID < 50 MG/DL (NOT ESTABLISHED); LDH, BODY FLUID 140 U/L (NOT ESTABLISHED); SOURCE, BODY FLUID ALBUMIN PLEURAL; SOURCE, BODY FLUID AMYLASE PLEURAL; SOURCE, BODY FLUID CHOL PLEURAL; SOURCE, BODY FLUID GLUCOSE PLEURAL; SOURCE, BODY FLUID LDH PLEURAL; SOURCE, BODY FLUID TOT PROTEIN PLEURAL; SOURCE, BODY FLUID TRIG PLEURAL; TOTAL PROTEIN, BODY FLUID 4.3 G/DL (NOT ESTABLISHED); TRIGLYCERIDE, BODY FLUID 17 MG/DL (NOT ESTABLISHED)
[2022-05-09] MEDS: ATORVASTATIN 20 MG TAB PO SCH (20:40)
[2022-05-09] MEDS: REMOVE LIDODERM XX SCH (20:42)
[2022-05-10] MEDS: LEVOTHYROXINE 50MCG TABLET (0.05MG) PO SCH (05:55)
[2022-05-10 06:00] VITALS: BP 126/74
[2022-05-10 07:07] LABS: BLOOD UREA NITROGEN 16 MG/DL (7-18); CALCIUM LEVEL 8.9 MG/DL (8.8-10.2); CARBON DIOXIDE LEVEL 35 MEQ/L (21-32); CHLORIDE LEVEL 92 MEQ/L (98-107); CREATININE FOR GFR 1.04 MG/DL (0.70-1.30); GLOMERULAR FILTRATION RATE > 60.0 (>42); GLUCOSE, FASTING 107 MG/DL (70-100); MAGNESIUM LEVEL 2.4 MG/DL (1.8-2.4); SODIUM LEVEL 132 MEQ/L (136-145)
[2022-05-10] MEDS: MIDODRINE 5 MG TAB PO SCH ×3 (08:47→15:48)
[2022-05-10] MEDS: SENOKOT S TAB PO SCH ×2 (08:47→20:23)
[2022-05-10] MEDS: SPIRONOLACTONE 25 MG TAB PO SCH (08:47)
[2022-05-10] MEDS: DOCUSATE SODIUM 100MG CAPSULE PO SCH ×2 (08:48→20:21)
[2022-05-10] MEDS: guaiFENesin ER 600 MG TAB PO SCH ×2 (08:48→20:23)
[2022-05-10] MEDS: ACETAMINOPHEN 500 MG TAB PO SCH ×2 (08:49→20:23)
[2022-05-10] MEDS: POTASSIUM CHLORIDE 10MEQ SR TABLET PO SCH (08:49)
[2022-05-10] MEDS: MAGNESIUM OXIDE 400MG TAB (MAG-OX) PO SCH ×2 (08:49→20:23)
[2022-05-10] MEDS: MIRALAX *UNIT DOSE* 17GM PACKET PO SCH (08:49)
[2022-05-10] MEDS: APIXABAN 5 MG TAB (ELIQUIS) PO SCH ×2 (08:49→20:23)
[2022-05-10] MEDS: NYSTATIN 100,000 UNITS/GM TOPICAL PWD 15 GM TOP SCH ×2 (08:50→20:24)
[2022-05-10] MEDS: LIDOCAINE 5% (LIDODERM) PATCH TD SCH (08:50)
[2022-05-10] MEDS: FUROSEMIDE 40 MG TAB PO SCH ×2 (11:51→18:00)
[2022-05-10 14:00] VITALS: BP 126/77
[2022-05-10 15:50] VITALS: BP 138/86
[2022-05-10 17:08] LABS: Chitobioside Carbohydrat (ACCA 47 units (0-90); Laminaribioside Carbohyd (ALCA 7 units (0-60); Mannobioside Carbohydrat (AMCA 75 units (0-100); Saccharomyces cerevisiae IgG A 6 units (0-50)
[2022-05-10] MEDS: ATORVASTATIN 20 MG TAB PO SCH (20:23)
[2022-05-10] MEDS: REMOVE LIDODERM XX SCH (20:24)
[2022-05-10 21:24] VITALS: O2SAT 92
[2022-05-10 22:00] VITALS: BP 110/69
[2022-05-11] MEDS: LEVOTHYROXINE 50MCG TABLET (0.05MG) PO SCH (05:59)
[2022-05-11 06:00] VITALS: BP 128/75
[2022-05-11 06:45] LABS: BLOOD UREA NITROGEN 18 MG/DL (7-18); CALCIUM LEVEL 8.9 MG/DL (8.8-10.2); CARBON DIOXIDE LEVEL 34 MEQ/L (21-32); CHLORIDE LEVEL 91 MEQ/L (98-107); CREATININE FOR GFR 1.15 MG/DL (0.70-1.30); GLOMERULAR FILTRATION RATE > 60.0 (>42); GLUCOSE, FASTING 106 MG/DL (70-100); MAGNESIUM LEVEL 2.2 MG/DL (1.8-2.4); POTASSIUM SERUM 3.9 MEQ/L (3.5-5.1); SODIUM LEVEL 130 MEQ/L (136-145)
[2022-05-11] MEDS ORDERED: metOLazone 5 MG TAB PO ONE (07:20)
[2022-05-11] MEDS: MIDODRINE 5 MG TAB PO SCH ×3 (08:13→16:07)
[2022-05-11] MEDS: MIRALAX *UNIT DOSE* 17GM PACKET PO SCH (09:00)
[2022-05-11] MEDS: DOCUSATE SODIUM 100MG CAPSULE PO SCH ×2 (09:03→20:24)
[2022-05-11] MEDS: MAGNESIUM OXIDE 400MG TAB (MAG-OX) PO SCH ×2 (09:04→20:23)
[2022-05-11] MEDS: FUROSEMIDE 40 MG TAB PO SCH ×2 (09:04→16:08)
[2022-05-11] MEDS: POTASSIUM CHLORIDE 10MEQ SR TABLET PO SCH (09:04)
[2022-05-11] MEDS: ACETAMINOPHEN 500 MG TAB PO SCH ×2 (09:04→20:24)
[2022-05-11] MEDS: SPIRONOLACTONE 25 MG TAB PO SCH (09:04)
[2022-05-11] MEDS: guaiFENesin ER 600 MG TAB PO SCH ×2 (09:04→20:24)
[2022-05-11] MEDS: LIDOCAINE 5% (LIDODERM) PATCH TD SCH (09:05)
[2022-05-11] MEDS: APIXABAN 5 MG TAB (ELIQUIS) PO SCH ×2 (09:05→20:23)
[2022-05-11] MEDS: SENOKOT S TAB PO SCH ×2 (09:05→20:24)
[2022-05-11] MEDS: NYSTATIN 100,000 UNITS/GM TOPICAL PWD 15 GM TOP SCH ×2 (09:06→20:24)
[2022-05-11 14:00] VITALS: BP 121/73
[2022-05-11] MEDS ORDERED: LIDOCAINE 2% 5ML JELLY UROJET TOP ONE (19:00)
[2022-05-11] MEDS: REMOVE LIDODERM XX SCH (20:24)
[2022-05-11] MEDS: ATORVASTATIN 20 MG TAB PO SCH (20:24)
[2022-05-11 20:27] VITALS: BP 138/79
[2022-05-12 00:39] VITALS: O2SAT 93
[2022-05-12 05:33] VITALS: BP 112/69
[2022-05-12] MEDS: LEVOTHYROXINE 50MCG TABLET (0.05MG) PO SCH (05:36)
[2022-05-12] MEDS: FUROSEMIDE 40 MG TAB PO SCH ×2 (08:42→16:03)
[2022-05-12] MEDS: MIRALAX *UNIT DOSE* 17GM PACKET PO SCH (08:42)
[2022-05-12] MEDS: DOCUSATE SODIUM 100MG CAPSULE PO SCH ×2 (08:42→21:00)
[2022-05-12] MEDS: SPIRONOLACTONE 25 MG TAB PO SCH (08:43)
[2022-05-12] MEDS: ACETAMINOPHEN 500 MG TAB PO SCH ×2 (08:43→21:54)
[2022-05-12] MEDS: guaiFENesin ER 600 MG TAB PO SCH ×2 (08:43→21:53)
[2022-05-12] MEDS: SENOKOT S TAB PO SCH ×2 (08:43→21:00)
[2022-05-12] MEDS: APIXABAN 5 MG TAB (ELIQUIS) PO SCH ×2 (08:43→21:53)
[2022-05-12] MEDS: POTASSIUM CHLORIDE 10MEQ SR TABLET PO SCH ×2 (08:44→21:55)
[2022-05-12] MEDS: MIDODRINE 5 MG TAB PO SCH ×3 (08:44→16:03)
[2022-05-12] MEDS: MAGNESIUM OXIDE 400MG TAB (MAG-OX) PO SCH ×2 (08:44→21:53)
[2022-05-12] MEDS: NYSTATIN 100,000 UNITS/GM TOPICAL PWD 15 GM TOP SCH ×2 (08:44→21:55)
[2022-05-12] MEDS: LIDOCAINE 5% (LIDODERM) PATCH TD SCH (08:44)
[2022-05-12 08:46] LABS: BLOOD UREA NITROGEN 16 MG/DL (7-18); CALCIUM LEVEL 8.8 MG/DL (8.8-10.2); CARBON DIOXIDE LEVEL 34 MEQ/L (21-32); CHLORIDE LEVEL 90 MEQ/L (98-107); CREATININE FOR GFR 1.06 MG/DL (0.70-1.30); GLOMERULAR FILTRATION RATE > 60.0 (>42); GLUCOSE, FASTING 105 MG/DL (70-100); MAGNESIUM LEVEL 2.1 MG/DL (1.8-2.4); POTASSIUM SERUM 3.3 MEQ/L (3.5-5.1); SODIUM LEVEL 131 MEQ/L (136-145)
[2022-05-12 11:44] VITALS: O2SAT 90
[2022-05-12 14:00] VITALS: BP 120/75
[2022-05-12] MEDS: ATORVASTATIN 20 MG TAB PO SCH (21:53)
[2022-05-12] MEDS: REMOVE LIDODERM XX SCH (21:55)
[2022-05-13 00:46] VITALS: O2SAT 93
[2022-05-13 05:32] VITALS: BP 122/84
[2022-05-13] MEDS: LEVOTHYROXINE 50MCG TABLET (0.05MG) PO SCH (05:33)
[2022-05-13] MEDS ORDERED: POTASSIUM CHLORIDE 10MEQ SR TABLET PO SCH (09:00)
[2022-05-13 10:00] VITALS: O2SAT 94
[2022-05-13] MEDS: NYSTATIN 100,000 UNITS/GM TOPICAL PWD 15 GM TOP SCH ×2 (10:27→20:10)
[2022-05-13] MEDS: SENOKOT S TAB PO SCH ×2 (10:28→20:09)
[2022-05-13] MEDS: guaiFENesin ER 600 MG TAB PO SCH ×2 (10:28→20:07)
[2022-05-13] MEDS: ACETAMINOPHEN 500 MG TAB PO SCH ×2 (10:28→20:09)
[2022-05-13] MEDS: MIDODRINE 5 MG TAB PO SCH ×3 (10:28→17:13)
[2022-05-13] MEDS: APIXABAN 5 MG TAB (ELIQUIS) PO SCH ×2 (10:29→20:07)
[2022-05-13] MEDS: DOCUSATE SODIUM 100MG CAPSULE PO SCH ×2 (10:29→20:08)
[2022-05-13] MEDS: FUROSEMIDE 40 MG TAB PO SCH ×2 (10:29→17:13)
[2022-05-13] MEDS: SPIRONOLACTONE 25 MG TAB PO SCH (10:29)
[2022-05-13] MEDS: MAGNESIUM OXIDE 400MG TAB (MAG-OX) PO SCH ×2 (10:29→20:07)
[2022-05-13] MEDS: MIRALAX *UNIT DOSE* 17GM PACKET PO SCH (10:30)
[2022-05-13] MEDS: POTASSIUM CHLORIDE 10MEQ SR TABLET PO SCH ×2 (10:30→20:08)
[2022-05-13] MEDS: LIDOCAINE 5% (LIDODERM) PATCH TD SCH (10:32)
[2022-05-13] MEDS: ATORVASTATIN 20 MG TAB PO SCH (20:08)
[2022-05-13] MEDS: REMOVE LIDODERM XX SCH (20:10)
[2022-05-14 04:26] VITALS: O2SAT 90
[2022-05-14] MEDS: LEVOTHYROXINE 50MCG TABLET (0.05MG) PO SCH (05:52)
[2022-05-14 06:00] VITALS: BP 121/69
[2022-05-14 07:13] LABS: BLOOD UREA NITROGEN 17 MG/DL (7-18); CARBON DIOXIDE LEVEL 35 MEQ/L (21-32); CHLORIDE LEVEL 92 MEQ/L (98-107); CREATININE FOR GFR 1.13 MG/DL (0.70-1.30); GLOMERULAR FILTRATION RATE > 60.0 (>42); GLUCOSE, FASTING 107 MG/DL (70-100); MAGNESIUM LEVEL 2.1 MG/DL (1.8-2.4); POTASSIUM SERUM 3.6 MEQ/L (3.5-5.1); SODIUM LEVEL 133 MEQ/L (136-145)
[2022-05-14] MEDS: MIRALAX *UNIT DOSE* 17GM PACKET PO SCH (08:46)
[2022-05-14] MEDS: NYSTATIN 100,000 UNITS/GM TOPICAL PWD 15 GM TOP SCH ×2 (08:46→20:17)
[2022-05-14] MEDS: LIDOCAINE 5% (LIDODERM) PATCH TD SCH (08:46)
[2022-05-14] MEDS: guaiFENesin ER 600 MG TAB PO SCH ×2 (08:47→20:15)
[2022-05-14] MEDS: FUROSEMIDE 40 MG TAB PO SCH ×2 (08:47→17:29)
[2022-05-14] MEDS: SPIRONOLACTONE 25 MG TAB PO SCH (08:47)
[2022-05-14] MEDS: ACETAMINOPHEN 500 MG TAB PO SCH ×2 (08:47→20:17)
[2022-05-14] MEDS: DOCUSATE SODIUM 100MG CAPSULE PO SCH ×3 (08:47→20:18)
[2022-05-14] MEDS: APIXABAN 5 MG TAB (ELIQUIS) PO SCH ×2 (08:47→20:16)
[2022-05-14] MEDS: MAGNESIUM OXIDE 400MG TAB (MAG-OX) PO SCH ×2 (08:47→20:16)
[2022-05-14] MEDS: MIDODRINE 5 MG TAB PO SCH ×3 (08:48→17:29)
[2022-05-14] MEDS: SENOKOT S TAB PO SCH ×3 (08:48→20:16)
[2022-05-14] MEDS: POTASSIUM CHLORIDE 10MEQ SR TABLET PO SCH ×2 (08:48→20:16)
[2022-05-14 09:06] LABS: NT-PRO BNP 1728 PG/ML (<450)
[2022-05-14] MEDS: ATORVASTATIN 20 MG TAB PO SCH (20:15)
[2022-05-14] MEDS: REMOVE LIDODERM XX SCH (20:36)
[2022-05-15 05:53] VITALS: BP 135/76
[2022-05-15] MEDS: LEVOTHYROXINE 50MCG TABLET (0.05MG) PO SCH (05:54)
[2022-05-15] MEDS: SENOKOT S TAB PO SCH ×2 (09:00→20:31)
[2022-05-15] MEDS: DOCUSATE SODIUM 100MG CAPSULE PO SCH ×2 (09:00→20:31)
[2022-05-15] MEDS: APIXABAN 5 MG TAB (ELIQUIS) PO SCH ×2 (09:28→20:29)
[2022-05-15] MEDS: MIRALAX *UNIT DOSE* 17GM PACKET PO SCH (09:28)
[2022-05-15] MEDS: guaiFENesin ER 600 MG TAB PO SCH ×2 (09:28→20:29)
[2022-05-15] MEDS: FUROSEMIDE 40 MG TAB PO SCH ×2 (09:28→17:08)
[2022-05-15] MEDS: SPIRONOLACTONE 25 MG TAB PO SCH (09:28)
[2022-05-15] MEDS: MIDODRINE 5 MG TAB PO SCH ×3 (09:28→17:06)
[2022-05-15] MEDS: MAGNESIUM OXIDE 400MG TAB (MAG-OX) PO SCH ×2 (09:29→20:29)
[2022-05-15] MEDS: POTASSIUM CHLORIDE 10MEQ SR TABLET PO SCH ×2 (09:29→20:28)
[2022-05-15] MEDS: ACETAMINOPHEN 500 MG TAB PO SCH ×2 (09:29→20:29)
[2022-05-15] MEDS: LIDOCAINE 5% (LIDODERM) PATCH TD SCH (09:30)
[2022-05-15] MEDS: NYSTATIN 100,000 UNITS/GM TOPICAL PWD 15 GM TOP SCH ×2 (09:30→20:32)
[2022-05-15 10:41] VITALS: O2SAT 90
[2022-05-15 12:22] LABS: BASO % 0.2 % (0.0-1.0); EOS # 0.1 10^3/uL (0.0-0.5); EOS % 1.1 % (0.0-3.0); HEMOGLOBIN 14.7 g/dl (13.5-17.5); LYMPH # 0.9 10^3/uL (1.5-5.0); MEAN CORPUSCULAR HGB CONC 32.7 g/dl (32.0-36.5); MEAN CORPUSCULAR VOLUME 97.8 fl (80.0-96.0); MONO % 11.8 % (2.0-8.0); NEUTROPHILS # 6.8 10^3/uL (1.5-8.5); NEUTROPHILS % 76.7 % (36.0-66.0); PLATELET COUNT, AUTOMATED 174 10^3/uL (150-450); WHITE BLOOD COUNT 8.8 10^3/uL (4.0-10.0)
[2022-05-15 12:58] LABS: BLOOD UREA NITROGEN 17 MG/DL (7-18); CALCIUM LEVEL 8.8 MG/DL (8.8-10.2); CARBON DIOXIDE LEVEL 33 MEQ/L (21-32); CHLORIDE LEVEL 96 MEQ/L (98-107); CREATININE FOR GFR 1.21 MG/DL (0.70-1.30); GLOMERULAR FILTRATION RATE > 60.0 (>42); GLUCOSE, FASTING 127 MG/DL (70-100); MAGNESIUM LEVEL 2.3 MG/DL (1.8-2.4); POTASSIUM SERUM 4.2 MEQ/L (3.5-5.1); SODIUM LEVEL 133 MEQ/L (136-145)
[2022-05-15] MEDS: ATORVASTATIN 20 MG TAB PO SCH (20:29)
[2022-05-15] MEDS: REMOVE LIDODERM XX SCH (20:32)
[2022-05-16] MEDS: LEVOTHYROXINE 50MCG TABLET (0.05MG) PO SCH (05:03)
[2022-05-16 05:08] VITALS: BP 123/73
[2022-05-16 09:00] VITALS: O2SAT 93
[2022-05-16] MEDS: LIDOCAINE 5% (LIDODERM) PATCH TD SCH (09:00)
[2022-05-16] MEDS: MAGNESIUM OXIDE 400MG TAB (MAG-OX) PO SCH ×2 (09:40→23:07)
[2022-05-16] MEDS: POTASSIUM CHLORIDE 10MEQ SR TABLET PO SCH ×2 (09:40→23:04)
[2022-05-16] MEDS: SPIRONOLACTONE 25 MG TAB PO SCH (09:40)
[2022-05-16] MEDS: SENOKOT S TAB PO SCH ×2 (09:40→23:02)
[2022-05-16] MEDS: guaiFENesin ER 600 MG TAB PO SCH ×2 (09:40→23:12)
[2022-05-16] MEDS: DOCUSATE SODIUM 100MG CAPSULE PO SCH ×2 (09:40→23:06)
[2022-05-16] MEDS: APIXABAN 5 MG TAB (ELIQUIS) PO SCH ×2 (09:40→23:13)
[2022-05-16] MEDS: NYSTATIN 100,000 UNITS/GM TOPICAL PWD 15 GM TOP SCH ×2 (09:41→23:02)
[2022-05-16] MEDS: FUROSEMIDE 40 MG TAB PO SCH ×2 (09:41→17:41)
[2022-05-16] MEDS: MIDODRINE 5 MG TAB PO SCH ×3 (09:41→17:43)
[2022-05-16] MEDS: ACETAMINOPHEN 500 MG TAB PO SCH ×2 (09:41→23:10)
[2022-05-16] MEDS: MIRALAX *UNIT DOSE* 17GM PACKET PO SCH (09:42)
[2022-05-16 09:43] VITALS: BP 120/73
[2022-05-16 12:32] VITALS: BP 122/75
[2022-05-16 14:00] VITALS: BP_SYST 100; BP_SYST 120; BP_DIAS 59; BP_DIAS 74
[2022-05-16 17:43] VITALS: BP 118/68
[2022-05-16] MEDS: ATORVASTATIN 20 MG TAB PO SCH (23:08)
[2022-05-16] MEDS: REMOVE LIDODERM XX SCH (23:13)
[2022-05-17 02:13] VITALS: O2SAT 96
[2022-05-17 06:48] VITALS: BP 100/57
[2022-05-17] MEDS: LEVOTHYROXINE 50MCG TABLET (0.05MG) PO SCH (06:55)
[2022-05-17] MEDS ORDERED: ALDA25TA2 PO (08:32)
[2022-05-17] MEDS ORDERED: MIDO5TA PO (08:32)
[2022-05-17] MEDS: guaiFENesin ER 600 MG TAB PO SCH (09:29)
[2022-05-17] MEDS: DOCUSATE SODIUM 100MG CAPSULE PO SCH (09:29)
[2022-05-17] MEDS: SENOKOT S TAB PO SCH (09:29)
[2022-05-17] MEDS: ACETAMINOPHEN 500 MG TAB PO SCH (09:29)
[2022-05-17] MEDS: MIDODRINE 5 MG TAB PO SCH (09:30)
[2022-05-17] MEDS: SPIRONOLACTONE 25 MG TAB PO SCH (09:30)
[2022-05-17] MEDS: MIRALAX *UNIT DOSE* 17GM PACKET PO SCH (09:30)
[2022-05-17] MEDS: POTASSIUM CHLORIDE 10MEQ SR TABLET PO SCH (09:30)
[2022-05-17] MEDS: MAGNESIUM OXIDE 400MG TAB (MAG-OX) PO SCH (09:30)
[2022-05-17] MEDS: FUROSEMIDE 40 MG TAB PO SCH (09:30)
[2022-05-17] MEDS: APIXABAN 5 MG TAB (ELIQUIS) PO SCH (09:30)
[2022-05-17] MEDS: NYSTATIN 100,000 UNITS/GM TOPICAL PWD 15 GM TOP SCH (09:31)
[2022-05-17] MEDS: LIDOCAINE 5% (LIDODERM) PATCH TD SCH (09:31)
[2022-05-17 10:06] LABS: BLOOD UREA NITROGEN 15 MG/DL (7-18); CALCIUM LEVEL 9.1 MG/DL (8.8-10.2); CARBON DIOXIDE LEVEL 30 MEQ/L (21-32); CHLORIDE LEVEL 99 MEQ/L (98-107); CREATININE FOR GFR 0.98 MG/DL (0.70-1.30); GLOMERULAR FILTRATION RATE > 60.0 (>42); GLUCOSE, FASTING 90 MG/DL (70-100); POTASSIUM SERUM 4.7 MEQ/L (3.5-5.1); SODIUM LEVEL 133 MEQ/L (136-145)
[2022-05-17] MEDS ORDERED: MUCI600T31 PO (11:03)
[2022-05-17] MEDS ORDERED: FURO40TA2 PO (11:03)
[2022-05-17] MEDS ORDERED: COLA100C5 PO (11:03)
[2022-05-17] MEDS ORDERED: POTA-136 PO (11:03)
== END 2022-05-17 12:03 | disposition home or self-care (01) | DRG 291 ==
LOC: EDBD 09:57 → M ED 11:08 → M ED INP 11:56 → ENRESERV 13:37 → M PCU 14:20 → M MSPAV 05-06 10:09
PROVIDERS: ADMIT General Practice; ATTEND Family Medicine
PROC: 0W9B3ZZ Drainage of Left Pleural Cavity, Percutaneous Approach (ICD-10-PCS; 2022-05-09)
PROC: 0W9B3ZZ Drainage of Left Pleural Cavity, Percutaneous Approach (ICD-10-PCS; principal; 2022-05-09 15:30)
DX: I11.0 Hypertensive heart disease with heart failure (principal); J96.21 Acute and chronic respiratory failure with hypoxia; I50.33 Acute on chronic diastolic (congestive) heart failure; J98.11 Atelectasis; J90 Pleural effusion, not elsewhere classified; Q60.0 Renal agenesis, unilateral; E87.4 Mixed disorder of acid-base balance; I48.20 Chronic atrial fibrillation, unspecified; E87.1 Hypo-osmolality and hyponatremia; M54.9 Dorsalgia, unspecified; F03.90 Unspecified dementia, unspecified severity, without behavioral disturbance, psychotic disturbance, mood disturbance, and anxiety; J44.9 Chronic obstructive pulmonary disease, unspecified; D69.6 Thrombocytopenia, unspecified; R55 Syncope and collapse; R07.89 Other chest pain; E03.9 Hypothyroidism, unspecified; E87.6 Hypokalemia; Z66 Do not resuscitate; Z79.899 Other long term (current) drug therapy; Z86.16 Personal history of COVID-19; E78.5 Hyperlipidemia, unspecified; Z79.01 Long term (current) use of anticoagulants; K59.00 Constipation, unspecified

== ENCOUNTER → 2023-02-02 | Outpatient (REF) | payer MEDICARE ==
[~2023-02-02] MED LIST changes: +ALDA25TA2 PO; +BISAC5TA PO; +COLA100C5 PO; +FURO20TA2 PO; +MIDO2.5T PO; +MIDO5TA PO; +MUCI600T31 PO; +POTA-136 PO
[2023-02-02 17:32] LABS: EOSINOPHILS 1 % (0-3); LYMPHOCYTES 13 % (16-44); MONOCYTES 6 % (0-5); NEUTROPHILS 79 % (28-66); PLATELET ESTIMATE DECREASED (NORMAL)
== END ==
LOC: M LAB REF 16:05
PROVIDERS: ATTEND Internal Medicine
DX: I48.21 Permanent atrial fibrillation (principal); J44.9 Chronic obstructive pulmonary disease, unspecified; D68.69 Other thrombophilia; D72.9 Disorder of white blood cells, unspecified

== ENCOUNTER → 2023-10-30 | Outpatient (REF) | payer MEDICARE ==
[2023-10-30 17:00] LABS: APPEARANCE, URINE CLOUDY (CLEAR); BACTERIA, URINE AUTO 3+ (NEGATIVE); BILIRUBIN, URINE AUTO NEGATIVE (NEGATIVE); BLOOD, URINE BLOOD 3+ (NEGATIVE); COLOR, URINE RED (YELLOW); GLUCOSE, URINE (UA) AUTO NEGATIVE (NEGATIVE); KETONE, URINE AUTO NEGATIVE (NEGATIVE); LEUKOCYTE ESTERASE, URINE AUTO 3+ (NEGATIVE); NITRITE, URINE AUTO NEGATIVE (NEGATIVE); PROTEIN, URINE AUTO 2+ mg/dL (NEGATIVE); RBC, URINE AUTO TNTC /HPF (0-3); SPECIFIC GRAVITY URINE AUTO 1.012 (1.002-1.035); SQUAMOUS EPITHELIAL CELL UR AU 0 /HPF (0-6); UROBILINOGEN, URINE AUTO 0.2 mg/dL (0.0-2.0); WBC, URINE AUTO TNTC /HPF (0-3)
== END ==
LOC: M LAB REF 16:07
PROVIDERS: ATTEND Internal Medicine
DX: R31.9 Hematuria, unspecified (principal)

== ENCOUNTER → 2024-02-02 | Outpatient (REF) | payer MEDICARE ==
[2024-02-02 14:01] LABS: APPEARANCE, URINE CLOUDY (CLEAR); BACTERIA, URINE AUTO NEGATIVE (NEGATIVE); BILIRUBIN, URINE AUTO NEGATIVE (NEGATIVE); BLOOD, URINE BLOOD 3+ (NEGATIVE); COLOR, URINE RED (YELLOW); GLUCOSE, URINE (UA) AUTO NEGATIVE (NEGATIVE); KETONE, URINE AUTO NEGATIVE (NEGATIVE); LEUKOCYTE ESTERASE, URINE AUTO NEGATIVE (NEGATIVE); MUCUS, URINE SMALL (NEGATIVE); NITRITE, URINE AUTO NEGATIVE (NEGATIVE); PROTEIN, URINE AUTO 3+ mg/dL (NEGATIVE); RBC, URINE AUTO TNTC /HPF (0-3); SPECIFIC GRAVITY URINE AUTO 1.012 (1.002-1.035); SQUAMOUS EPITHELIAL CELL UR AU 0 /HPF (0-6); UROBILINOGEN, URINE AUTO 0.2 mg/dL (0.0-2.0); WBC, URINE AUTO 9 /HPF (0-3)
== END ==
LOC: M LAB REF 12:28
PROVIDERS: ATTEND Internal Medicine
DX: N30.81 Other cystitis with hematuria (principal)

== ENCOUNTER → 2024-03-04 | Outpatient (CLI) | payer MEDICARE ==
[~2024-03-04] MED LIST changes: +ISOVUE-370 76% 100ML VIAL ONE
== END ==
LOC: M PLAIMG 13:38
PROVIDERS: ATTEND Internal Medicine
DX: R31.0 Gross hematuria (principal); J90 Pleural effusion, not elsewhere classified; Z95.5 Presence of coronary angioplasty implant and graft; N26.1 Atrophy of kidney (terminal)
CPT/HCPCS: 74178; Q9967

== ENCOUNTER → 2024-04-16 | Outpatient (CLI) | payer MEDICARE ==
[~2024-04-16] MED LIST changes: +CENT1TAB12 PO; -ISOVUE-370 76% 100ML VIAL ONE
[2024-04-16 09:42] LABS: APPEARANCE, URINE CLEAR (CLEAR); BACTERIA, URINE AUTO NEGATIVE (NEGATIVE); BILIRUBIN, URINE AUTO NEGATIVE (NEGATIVE); BLOOD, URINE BLOOD NEGATIVE (NEGATIVE); COLOR, URINE YELLOW (YELLOW); GLUCOSE, URINE (UA) AUTO NEGATIVE (NEGATIVE); KETONE, URINE AUTO NEGATIVE (NEGATIVE); LEUKOCYTE ESTERASE, URINE AUTO TRACE (NEGATIVE); MUCUS, URINE SMALL (NEGATIVE); NITRITE, URINE AUTO NEGATIVE (NEGATIVE); PROTEIN, URINE AUTO 3+ mg/dL (NEGATIVE); RBC, URINE AUTO 3 /HPF (0-3); SPECIFIC GRAVITY URINE AUTO 1.011 (1.002-1.035); SQUAMOUS EPITHELIAL CELL UR AU 1 /HPF (0-6); UROBILINOGEN, URINE AUTO 0.2 mg/dL (0.0-2.0); WBC, URINE AUTO 9 /HPF (0-3)
[2024-04-16 09:52] LABS: HEMATOCRIT 42.7 % (42.0-52.0); HEMOGLOBIN 14.5 g/dl (13.5-17.5); MEAN CORPUSCULAR HEMOGLOBIN 34.1 pg (27.0-33.0); MEAN CORPUSCULAR VOLUME 100.5 fl (80.0-96.0); PLATELET COUNT, AUTOMATED 129 10^3/uL (150-450); RED BLOOD COUNT 4.25 10^6/uL (4.30-6.10); WHITE BLOOD COUNT 7.1 10^3/uL (4.0-10.0)
[2024-04-16 10:08] LABS: BLOOD UREA NITROGEN 13 MG/DL (9-23); CALCIUM LEVEL 9.2 MG/DL (8.3-10.6); CARBON DIOXIDE LEVEL 26 MMOL/L (20-31); CHLORIDE LEVEL 91 MMOL/L (98-107); GLOMERULAR FILTRATION RATE > 60.0 (>35); GLUCOSE, FASTING 131 MG/DL (74-106); POTASSIUM SERUM 3.7 MMOL/L (3.5-5.1); SODIUM LEVEL 128 MMOL/L (136-145)
== END ==
LOC: M RAD 08:34
PROVIDERS: ATTEND Urology
DX: Z01.818 Encounter for other preprocedural examination (principal); D49.4 Neoplasm of unspecified behavior of bladder; N39.0 Urinary tract infection, site not specified

== ENCOUNTER 2024-04-26 05:59 | Day surgery (SDC) | payer MEDICARE ==
[2024-04-25] MEDS: ceFAZolin SOD 2 GM in IV 1 EA IV ONE (07:30)
[~2024-04-26] VITALS: Ht 193 cm; Wt 97.5 kg
[2024-04-26] MEDS ORDERED: METO1TAB32 (06:41)
[2024-04-26] MEDS ORDERED: IPRA6SP (06:41)
[2024-04-26] MEDS: LR 1,000 ML IV SCH (07:02)
[2024-04-26] MEDS ORDERED: LIDOCAINE 2% 100MG/5ML SDV (FOR ANES.) As Ordered ONE (07:14)
[2024-04-26] MEDS ORDERED: ACETAMINOPHEN 1000MG 100ML IV BAG As Ordered ONE (07:14)
[2024-04-26] MEDS ORDERED: KETOROLAC 60MG 2ML VIAL As Ordered ONE (07:14)
[2024-04-26] MEDS ORDERED: propofoL 200 MG/20 ML VIAL As Ordered ONE (07:14)
[2024-04-26] MEDS ORDERED: fentaNYL 100 MCG/2 ML INJECTION As Ordered ONE (07:14)
[2024-04-26] MEDS ORDERED: ROCURONIUM BROMIDE 50MG/5ML VIAL As Ordered ONE (07:15)
[2024-04-26] MEDS ORDERED: ONDANSETRON 4MG 2ML VIAL As Ordered ONE (07:17)
[2024-04-26] MEDS ORDERED: ceFAZolin 2 GM/D5W 50 ML IV BAG ONE (07:30)
[2024-04-26] MEDS: ceFAZolin SOD 2 GM in IV 1 EA IV ONE (08:14)
[2024-04-26] MEDS ORDERED: SUGAMMADEX SODIUM 500 MG/5 ML VIAL (BRIDION) As Ordered ONE (08:29)
[2024-04-26] MEDS ORDERED: HYDROMORPHONE HCL 0.5 MG/ 0.5 ML SYRINGE IV PRN (08:40)
[2024-04-26] MEDS ORDERED: oxyCODONE 5MG TAB PO PRN (08:40)
[2024-04-26] MEDS ORDERED: ONDANSETRON 4MG 2ML VIAL IV PRN (08:40)
[2024-04-26] MEDS ORDERED: fentaNYL 100 MCG/2 ML INJECTION IV PRN (08:40)
[2024-04-26] MEDS ORDERED: LR 1,000 ML IV SCH (08:40)
[2024-04-26] MEDS ORDERED: ACETAMINOPHEN TAB 650MG DOSE (2X325MG) PO PRN (09:00)
[2024-04-26] MEDS ORDERED: CIPR-249 PO (09:01)
[2024-04-26 11:00] VITALS: BP 164/77; TEMP 97.1; O2SAT 96
== END 2024-04-26 11:00 | disposition home or self-care (01) ==
LOC: M SDC 05:59
PROVIDERS: ATTEND Urology
DX: C64.9 Malignant neoplasm of unspecified kidney, except renal pelvis (principal); I25.10 Atherosclerotic heart disease of native coronary artery without angina pectoris; I25.2 Old myocardial infarction; I10 Essential (primary) hypertension; E03.9 Hypothyroidism, unspecified; Z86.16 Personal history of COVID-19; Z79.01 Long term (current) use of anticoagulants; Z79.899 Other long term (current) drug therapy
CPT/HCPCS: 51702; 52240; 88307; J0131; J0690; J1100; J1885; J2405; J3010

== ENCOUNTER 2024-05-19 20:49 | Inpatient (IN) | payer MEDICARE ==
[~2024-05-19] VITALS: Ht 190.5 cm; Wt 99.9 kg
[~2024-05-19 20:49] MED LIST changes: +CIPR-249 PO; +IPRA6SP; +METO1TAB32 PO
[2024-05-19] MEDS ORDERED: ISOVUE-370 76% 100ML VIAL As Ordered ONE (21:23)
[2024-05-19 21:38] LABS: HEMATOCRIT 32.3 % (42.0-52.0); HEMOGLOBIN 11.4 g/dl (13.5-17.5); MEAN CORPUSCULAR HEMOGLOBIN 34.4 pg (27.0-33.0); MEAN CORPUSCULAR HGB CONC 35.3 g/dl (32.0-36.5); MEAN CORPUSCULAR VOLUME 97.6 fl (80.0-96.0); PLATELET COUNT, AUTOMATED 133 10^3/uL (150-450); RED BLOOD COUNT 3.31 10^6/uL (4.30-6.10); WHITE BLOOD COUNT 11.1 10^3/uL (4.0-10.0)
[2024-05-19 21:48] LABS: ETHYL ALCOHOL (ETHANOL) 0.005 % (0.000-0.010)
[2024-05-19 21:49] LABS: ALBUMIN 3.7 G/DL (3.2-5.2); BILIRUBIN,DIRECT 0.7 MG/DL (<0.4); BILIRUBIN,TOTAL 1.8 MG/DL (0.3-1.2); INR 1.81; PARTIAL THROMBOPLASTIN TIME 47.3 SECONDS (24.8-34.2); PROTHROMBIN TIME 20.4 SECONDS (12.5-14.5); TOTAL PROTEIN 7.2 G/DL (5.7-8.2)
[2024-05-19] MEDS: LIDOCAINE 2% 5ML JELLY UROJET TOP ONE (22:20)
[2024-05-19 22:28] LABS: ATYPICAL LYMPH 1 % (0-5); LYMPHOCYTES 2 % (16-44); MONOCYTES 6 % (0-5); NEUTROPHILS 90 % (28-66)
[2024-05-19 22:29] LABS: PLATELET ESTIMATE DECREASED (NORMAL)
[2024-05-19 22:30] LABS: ANISOCYTOSIS 1+; OVALOCYTES 1+; POIKILOCYTOSIS 1+
[2024-05-19 22:49] LABS: APPEARANCE, URINE CLEAR (CLEAR); BACTERIA, URINE AUTO NEGATIVE (NEGATIVE); BILIRUBIN, URINE AUTO NEGATIVE (NEGATIVE); BLOOD, URINE BLOOD NEGATIVE (NEGATIVE); COLOR, URINE YELLOW (YELLOW); GLUCOSE, URINE (UA) AUTO NEGATIVE (NEGATIVE); KETONE, URINE AUTO NEGATIVE (NEGATIVE); LEUKOCYTE ESTERASE, URINE AUTO NEGATIVE (NEGATIVE); NITRITE, URINE AUTO NEGATIVE (NEGATIVE); PROTEIN, URINE AUTO 1+ mg/dL (NEGATIVE); RBC, URINE AUTO 3 /HPF (0-3); SPECIFIC GRAVITY URINE AUTO 1.018 (1.002-1.035); SQUAMOUS EPITHELIAL CELL UR AU 0 /HPF (0-6); UROBILINOGEN, URINE AUTO 0.2 mg/dL (0.0-2.0); WBC, URINE AUTO 1 /HPF (0-3)
[2024-05-19 23:00] LABS: AMPHETAMINES LEVEL URINE NEGATIVE (NEGATIVE); BARBITURATES URINE NEGATIVE (NEGATIVE); BENZODIAZEPINES URINE NEGATIVE (NEGATIVE); COCAINE METABOLITE URINE NEGATIVE (NEGATIVE)
[2024-05-19 23:01] LABS: CANNABINOIDS URINE NEGATIVE (NEGATIVE); METHADONE URINE NEGATIVE (NEGATIVE); OPIATES URINE NEGATIVE (NEGATIVE); PHENCYCLIDINE URINE NEGATIVE (NEGATIVE)
[2024-05-19] MEDS: NS 1,000 ML IV SCH (23:52)
[2024-05-20] MEDS ORDERED: MM S100C PO (01:33)
[2024-05-20] MEDS ORDERED: POTA-149 PO (01:33)
[2024-05-20] MEDS ORDERED: MIDO10TA PO (01:33)
[2024-05-20] MEDS ORDERED: HOME MED LIST COMPLETE! XX SCH (01:35)
[2024-05-20] MEDS ORDERED: BISACODYL 5MG TAB PO PRN (01:45)
[2024-05-20] MEDS ORDERED: ACETAMINOPHEN TAB 650MG DOSE (2X325MG) PO PRN (01:45)
[2024-05-20] MEDS ORDERED: MOM 30ML SUSPENSION UDC PO PRN (01:45)
[2024-05-20] MEDS ORDERED: IPRATROPIUM 0.06% NASAL SPRAY 15 ML (ATROVENT) PRN (01:45)
[2024-05-20 03:04] LABS: BLOOD UREA NITROGEN 13 MG/DL (9-23); CALCIUM LEVEL 8.2 MG/DL (8.3-10.6); CARBON DIOXIDE LEVEL 26 MMOL/L (20-31); CHLORIDE LEVEL 95 MMOL/L (98-107); CREATININE FOR GFR 0.91 MG/DL (0.70-1.30); GLOMERULAR FILTRATION RATE > 60.0 (>35); GLUCOSE, FASTING 118 MG/DL (74-106); POTASSIUM SERUM 4.4 MMOL/L (3.5-5.1); SODIUM LEVEL 124 MMOL/L (136-145)
[2024-05-20] MEDS: ACETAMINOPHEN TAB 650MG DOSE (2X325MG) PO SCH (03:21)
[2024-05-20] MEDS: LIDOCAINE 5% (LIDODERM) PATCH TD SCH (03:21)
[2024-05-20 03:24] LABS: SODIUM,RANDOM URINE 39 MMOL/L
[2024-05-20 03:26] LABS: OSMOLALITY URINE 226 MOSM/KG (50-1400)
[2024-05-20] MEDS: LEVOTHYROXINE 50MCG TABLET (0.05MG) PO SCH (06:10)
[2024-05-20 07:33] LABS: THYROID STIMULATING HORMONE 3.879 uIU/ML (0.55-4.78)
[2024-05-20] MEDS: POTASSIUM CHLORIDE 10MEQ SR TABLET PO SCH (08:29)
[2024-05-20] MEDS: DOCUSATE SODIUM 100MG CAPSULE PO SCH (08:29)
[2024-05-20 08:31] VITALS: BP 133/66
[2024-05-20] MEDS: METOPROLOL SUCC *XL* 25MG TAB (TopROL *XL*) PO SCH (08:31)
[2024-05-20] MEDS: SPIRONOLACTONE 25 MG TAB PO SCH (08:33)
[2024-05-20] MEDS ORDERED: MIDODRINE 5 MG TAB PO SCH (09:00)
[2024-05-20 13:08] LABS: BLOOD UREA NITROGEN 13 MG/DL (9-23); CALCIUM LEVEL 8.8 MG/DL (8.3-10.6); CARBON DIOXIDE LEVEL 26 MMOL/L (20-31); CHLORIDE LEVEL 95 MMOL/L (98-107); CREATININE FOR GFR 0.94 MG/DL (0.70-1.30); GLOMERULAR FILTRATION RATE > 60.0 (>35); GLUCOSE, FASTING 116 MG/DL (74-106); POTASSIUM SERUM 4.7 MMOL/L (3.5-5.1); SODIUM LEVEL 125 MMOL/L (136-145)
[2024-05-20 13:13] LABS: PROCALCITONIN 0.23 ng/ml
[2024-05-20 16:30] VITALS: BP 147/76; TEMP 97.7; O2SAT 93
[2024-05-20] MEDS: ACETAMINOPHEN 500 MG TAB PO SCH (18:01)
[2024-05-20 18:56] LABS: BLOOD UREA NITROGEN 13 MG/DL (9-23); CALCIUM LEVEL 8.8 MG/DL (8.3-10.6); CARBON DIOXIDE LEVEL 29 MMOL/L (20-31); CHLORIDE LEVEL 94 MMOL/L (98-107); CREATININE FOR GFR 0.94 MG/DL (0.70-1.30); GLOMERULAR FILTRATION RATE > 60.0 (>35); GLUCOSE, FASTING 116 MG/DL (74-106); POTASSIUM SERUM 5.3 MMOL/L (3.5-5.1); SODIUM LEVEL 126 MMOL/L (136-145)
[2024-05-20 20:05] VITALS: BP 125/60; TEMP 97.2; O2SAT 96
[2024-05-20] MEDS: ATORVASTATIN 20 MG TAB PO SCH (20:38)
[2024-05-20] MEDS: IPRATROPIUM 0.5MG/ALBUTEROL 2.5MG INH SOL UD 3ML (DUONEB) NEB ONE (20:43)
[2024-05-21 01:18] LABS: BLOOD UREA NITROGEN 14 MG/DL (9-23); CALCIUM LEVEL 8.4 MG/DL (8.3-10.6); CARBON DIOXIDE LEVEL 29 MMOL/L (20-31); CHLORIDE LEVEL 94 MMOL/L (98-107); CREATININE FOR GFR 0.97 MG/DL (0.70-1.30); GLOMERULAR FILTRATION RATE > 60.0 (>35); GLUCOSE, FASTING 126 MG/DL (74-106); POTASSIUM SERUM 4.5 MMOL/L (3.5-5.1); SODIUM LEVEL 125 MMOL/L (136-145)
[2024-05-21 04:31] VITALS: BP 132/68; TEMP 97.5; O2SAT 93
[2024-05-21 06:11] LABS: HEMATOCRIT 27.3 % (42.0-52.0); HEMOGLOBIN 9.5 g/dl (13.5-17.5); MEAN CORPUSCULAR HEMOGLOBIN 34.2 pg (27.0-33.0); MEAN CORPUSCULAR HGB CONC 34.8 g/dl (32.0-36.5); MEAN CORPUSCULAR VOLUME 98.2 fl (80.0-96.0); PLATELET COUNT, AUTOMATED 122 10^3/uL (150-450); RED BLOOD COUNT 2.78 10^6/uL (4.30-6.10); WHITE BLOOD COUNT 7.4 10^3/uL (4.0-10.0)
[2024-05-21 06:42] LABS: ALBUMIN 3.5 G/DL (3.2-5.2); ALKALINE PHOSPHATASE 80 U/L (46-116); ALT/SGPT 14 U/L (7.0-40); AST/SGOT 64 U/L (<34); BILIRUBIN,DIRECT 0.7 MG/DL (<0.4); BILIRUBIN,TOTAL 1.8 MG/DL (0.3-1.2); BLOOD UREA NITROGEN 14 MG/DL (9-23); CALCIUM LEVEL 8.6 MG/DL (8.3-10.6); CARBON DIOXIDE LEVEL 28 MMOL/L (20-31); CHLORIDE LEVEL 94 MMOL/L (98-107); CREATININE FOR GFR 0.97 MG/DL (0.70-1.30); GLOMERULAR FILTRATION RATE > 60.0 (>35); GLUCOSE, FASTING 113 MG/DL (74-106); POTASSIUM SERUM 4.6 MMOL/L (3.5-5.1); SODIUM LEVEL 128 MMOL/L (136-145); TOTAL PROTEIN 6.7 G/DL (5.7-8.2)
[2024-05-21 11:55] LABS: ABG BASE EXCESS 1.5 (-2.0-2.0); ABG HCO3 23.9 MMOL/L (22.0-26.0); ABG O2 SATURATION 91.5 % (95.0-99.0); ABG PARTIAL PRESSURE CO2 30.3 mmHg (35.0-45.0); ABG PARTIAL PRESSURE O2 56.7 mmHg (75.0-100.0); ABG STANDARD HCO3 25.7 MMOL/L. (22.0-26.0); ABG TOTAL CO2 24.8 MMOL/L (23.0-31.0); ABG pH (ARTERIAL) 7.515 UNITS (7.350-7.450)
[2024-05-21 12:00] VITALS: BP 117/62; TEMP 98.5; O2SAT 89
[2024-05-21 12:07] LABS: HEMATOCRIT 27.7 % (42.0-52.0); HEMOGLOBIN 9.5 g/dl (13.5-17.5)
[2024-05-21] MEDS ORDERED: GLUCAGON INJ 1MG VIAL SC PRN (16:10)
[2024-05-21] MEDS ORDERED: GLUCOSE 4 GM CHEW PO PRN (16:10)
[2024-05-21] MEDS ORDERED: DEXTROSE 50% 50ML SYRINGE IV PRN (16:10)
[2024-05-21 18:58] LABS: ABG BASE EXCESS 2.4 (-2.0-2.0); ABG HCO3 24.9 MMOL/L (22.0-26.0); ABG O2 SATURATION 97.5 % (95.0-99.0); ABG PARTIAL PRESSURE CO2 31.3 mmHg (35.0-45.0); ABG PARTIAL PRESSURE O2 92.6 mmHg (75.0-100.0); ABG STANDARD HCO3 26.6 MMOL/L. (22.0-26.0); ABG TOTAL CO2 25.9 MMOL/L (23.0-31.0); ABG pH (ARTERIAL) 7.519 UNITS (7.350-7.450)
[2024-05-21] MEDS: NS 1,000 ML IV SCH (19:29)
[2024-05-21] MEDS: APIXABAN 5 MG TAB (ELIQUIS) PO SCH (20:18)
[2024-05-21 21:07] VITALS: BP 153/93; TEMP 97.5; O2SAT 93
[2024-05-22] MEDS: MORPHINE 2 MG/ML 1ML VIAL IV PRN (03:08)
[2024-05-22 05:09] VITALS: BP 141/67; TEMP 97.5; O2SAT 95
[2024-05-22 06:00] LABS: HEMATOCRIT 28.5 % (42.0-52.0); HEMOGLOBIN 9.5 g/dl (13.5-17.5); MEAN CORPUSCULAR HEMOGLOBIN 33.3 pg (27.0-33.0); MEAN CORPUSCULAR HGB CONC 33.3 g/dl (32.0-36.5); PLATELET COUNT, AUTOMATED 125 10^3/uL (150-450); RED BLOOD COUNT 2.85 10^6/uL (4.30-6.10); WHITE BLOOD COUNT 8.1 10^3/uL (4.0-10.0)
[2024-05-22 06:32] LABS: BLOOD UREA NITROGEN 16 MG/DL (9-23); CALCIUM LEVEL 8.5 MG/DL (8.3-10.6); CARBON DIOXIDE LEVEL 28 MMOL/L (20-31); CHLORIDE LEVEL 95 MMOL/L (98-107); CREATININE FOR GFR 0.93 MG/DL (0.70-1.30); GLOMERULAR FILTRATION RATE > 60.0 (>35); GLUCOSE, FASTING 109 MG/DL (74-106); POTASSIUM SERUM 4.4 MMOL/L (3.5-5.1); SODIUM LEVEL 127 MMOL/L (136-145)
[2024-05-22 12:00] VITALS: BP 124/61; TEMP 97.7; O2SAT 91
[2024-05-22 16:22] LABS: PH BODY FLUID 7.665 UNITS (NOT ESTABLISHED); SOURCE, BODY FLUID pH THORACENTES
[2024-05-22 16:40] LABS: SOURCE, BODY FLUID GLUCOSE THORACENTESIS
[2024-05-22 16:42] LABS: LDH, BODY FLUID 128 U/L (NOT ESTABLISHED); SOURCE, BODY FLUID LDH THORACENTESIS
[2024-05-22 16:53] LABS: SOURCE, BODY FLUID TOT PROTEIN THORACENTESIS; TOTAL PROTEIN, BODY FLUID 4.3 G/DL (NOT ESTABLISHED)
[2024-05-22] MEDS ORDERED: PROHANCE 279.3MG/ML 5ML VIAL As Ordered ONE (16:55)
[2024-05-22] MEDS ORDERED: PROHANCE 279.3MG/ML 15ML VIAL As Ordered ONE (16:55)
[2024-05-22 18:00] VITALS: BP 122/59; TEMP 97.7; O2SAT 93
[2024-05-22 18:28] LABS: HEMOGLOBIN 9.7 g/dl (13.5-17.5); MEAN CORPUSCULAR HEMOGLOBIN 33.6 pg (27.0-33.0); MEAN CORPUSCULAR HGB CONC 33.4 g/dl (32.0-36.5); MEAN CORPUSCULAR VOLUME 100.3 fl (80.0-96.0); PLATELET COUNT, AUTOMATED 139 10^3/uL (150-450); RED BLOOD COUNT 2.89 10^6/uL (4.30-6.10); WHITE BLOOD COUNT 9.2 10^3/uL (4.0-10.0)
[2024-05-22 18:41] LABS: BLOOD UREA NITROGEN 16 MG/DL (9-23); CALCIUM LEVEL 8.6 MG/DL (8.3-10.6); CARBON DIOXIDE LEVEL 27 MMOL/L (20-31); CHLORIDE LEVEL 97 MMOL/L (98-107); GLOMERULAR FILTRATION RATE > 60.0 (>35); GLUCOSE, FASTING 109 MG/DL (74-106); POTASSIUM SERUM 4.4 MMOL/L (3.5-5.1); SODIUM LEVEL 127 MMOL/L (136-145)
[2024-05-22 20:33] VITALS: BP 143/64; TEMP 97.3; O2SAT 92
[2024-05-23 04:10] VITALS: O2SAT 84
[2024-05-23 04:25] VITALS: BP 148/74; TEMP 98.1; O2SAT 94
[2024-05-23] MEDS: LEVALBUTEROL 1.25MG 0.5ML CONCENTRATE NEB INH PRN (04:49)
[2024-05-23 04:57] VITALS: O2SAT 98
[2024-05-23] MEDS: MORPHINE 4 MG/ML 1ML VIAL IV PRN (05:17)
[2024-05-23 05:55] VITALS: BP 138/70; O2SAT 92
[2024-05-23 08:23] LABS: HEMATOCRIT 31.3 % (42.0-52.0); HEMOGLOBIN 10.4 g/dl (13.5-17.5); MEAN CORPUSCULAR HEMOGLOBIN 33.5 pg (27.0-33.0); MEAN CORPUSCULAR HGB CONC 33.2 g/dl (32.0-36.5); PLATELET COUNT, AUTOMATED 153 10^3/uL (150-450); WHITE BLOOD COUNT 10.5 10^3/uL (4.0-10.0)
[2024-05-23] MEDS: NALOXONE INJ 0.4MG/1ML VIAL IV STA (08:37)
[2024-05-23 08:41] LABS: LDH LACTATE DEHYDROGENASE 277 U/L (120-246)
[2024-05-23 08:42] LABS: BLOOD UREA NITROGEN 19 MG/DL (9-23); CALCIUM LEVEL 8.5 MG/DL (8.3-10.6); CARBON DIOXIDE LEVEL 25 MMOL/L (20-31); CHLORIDE LEVEL 101 MMOL/L (98-107); CREATININE FOR GFR 0.99 MG/DL (0.70-1.30); GLOMERULAR FILTRATION RATE > 60.0 (>35); GLUCOSE, FASTING 118 MG/DL (74-106); POTASSIUM SERUM 4.5 MMOL/L (3.5-5.1); SODIUM LEVEL 131 MMOL/L (136-145)
[2024-05-23 09:03] LABS: ABG BASE EXCESS -4.1 (-2.0-2.0); ABG HCO3 20.6 MMOL/L (22.0-26.0); ABG O2 SATURATION 90.9 % (95.0-99.0); ABG PARTIAL PRESSURE CO2 36.7 mmHg (35.0-45.0); ABG PARTIAL PRESSURE O2 64.7 mmHg (75.0-100.0); ABG STANDARD HCO3 20.9 MMOL/L. (22.0-26.0); ABG TOTAL CO2 21.8 MMOL/L (23.0-31.0); ABG pH (ARTERIAL) 7.368 UNITS (7.350-7.450)
[2024-05-23] MEDS: SCOPOLAMINE 1MG TRANSDERMAL PATCH TOP SCH (10:16)
[2024-05-23] MEDS ORDERED: BISACODYL 10MG SUPP PR PRN (13:40)
[2024-05-23] MEDS ORDERED: ONDANSETRON 4MG ORAL DISINTEGRATING TAB PO PRN (13:40)
[2024-05-23] MEDS ORDERED: MORPHINE 10MG/0.5ML ORAL CONCENTRATE SOLUTION U/D SL PRN (13:40)
[2024-05-23] MEDS: MORPHINE 10MG/0.5ML ORAL CONCENTRATE SOLUTION U/D SL SCH (14:04)
[2024-05-23] MEDS: LORazepam 1 MG TAB SL PRN (16:41)
[2024-05-23] MEDS: ATROPINE SULFATE 1% OPHTH SOLN 2ML BTL SL PRN (16:42)
== END 2024-05-23 18:45 | disposition expired | DRG 64 ==
LOC: EDBD 20:49 → M ED 20:49 → M ED INP 05-20 01:42 → M MS5PR 05-20 16:20
PROVIDERS: ADMIT Surgery; ATTEND Student in an Organized Health Care Education/Training Program
PROC: 0W9B3ZZ Drainage of Left Pleural Cavity, Percutaneous Approach (ICD-10-PCS; principal; 2024-05-22 12:00)
DX: I63.40 Cerebral infarction due to embolism of unspecified cerebral artery (principal); G93.41 Metabolic encephalopathy; J96.01 Acute respiratory failure with hypoxia; J90 Pleural effusion, not elsewhere classified; I50.20 Unspecified systolic (congestive) heart failure; N13.30 Unspecified hydronephrosis; E22.2 Syndrome of inappropriate secretion of antidiuretic hormone; S32.009A Unspecified fracture of unspecified lumbar vertebra, initial encounter for closed fracture; S22.009A Unspecified fracture of unspecified thoracic vertebra, initial encounter for closed fracture; S12.9XXA Fracture of neck, unspecified, initial encounter; E87.20 Acidosis, unspecified; S22.32XA Fracture of one rib, left side, initial encounter for closed fracture; E03.9 Hypothyroidism, unspecified; F03.90 Unspecified dementia, unspecified severity, without behavioral disturbance, psychotic disturbance, mood disturbance, and anxiety; I11.0 Hypertensive heart disease with heart failure; J44.9 Chronic obstructive pulmonary disease, unspecified; D64.9 Anemia, unspecified; E78.5 Hyperlipidemia, unspecified; I48.91 Unspecified atrial fibrillation; S42.002A Fracture of unspecified part of left clavicle, initial encounter for closed fracture; Z79.01 Long term (current) use of anticoagulants; Z79.899 Other long term (current) drug therapy; Z51.5 Encounter for palliative care; Z86.16 Personal history of COVID-19; W18.30XA Fall on same level, unspecified, initial encounter; Y92.009 Unspecified place in unspecified non-institutional (private) residence as the place of occurrence of the external cause